=== PATIENT | female | born 1980 | race Hispanic/Latino ===

== ENCOUNTER 2017-11-16 09:48 | Emergency (ER) | payer SELFPAY ==
[2017-11-16 11:39] LABS: Absolute Lymphocytes (CBC) 2.2 K/uL (0.7-4.9); Absolute Monocytes 0.7 K/uL (0.1-1.3); Absolute Neutrophil 5.3 K/uL (1.8-8.0); Basophils % 0.5 % (0-1.3); Eosinophils % 1.1 % (0-4.4); Hematocrit 33.9 % (36.0-45.0); Lymphocytes % 26.7 % (15.3-44.8); MCH 26.9 pg (27.0-35.0); MCV 83.3 fL (80-100); MPV 7.9 fL (7.6-11.3); Monocytes % 8.8 % (3.3-12.3); RBC Red Blood Cell Count 4.07 M/uL (3.86-4.86)
[2017-11-16 11:59] LABS: Bicarbonate 26 mEq/L (21-31); Glucose Level 94 mg/dL (65-120); Lipase 31 U/L (22-51); Potassium 3.8 mEq/L (3.6-5.0); Sodium Level 137 mEq/L (135-145)
[2017-11-16 12:05] LABS: ALT/SGPT 44 IU/L (10-60); AST/SGOT 45 IU/L (10-42); Albumin 3.8 g/dL (3.2-5.5); Alkaline Phosphatase 61 IU/L (42-121); Amylase Level 56 U/L (28-100); BUN Blood Urea Nitrogen 11 mg/dL (6-20); Bilirubin Direct < 0.1 mg/dL (0-0.2); Bilirubin Total 0.3 mg/dL (0.3-1.2)
[2017-11-16 12:12] LABS: Urine Blood 1+ (NEG); Urine Glucose NEGATIVE (NEG); Urine Protein NEGATIVE (NEG); Urine Specific Gravity 1.025 (1.005-1.030); Urine pH 5.5 (5.0-7.0)
--- NOTE | 2017-11-16 12:31 | RAD REPORT ---
EXAM DESCRIPTION: CT - Stone Protocol - 11/16/2017 12:21 pm CLINICAL HISTORY: Flank pain. COMPARISON: 06/03/2017 TECHNIQUE: Axial images were obtained without oral or IV contrast. Lack of contrast limits solid org an and vascular assessment. The [id number] spans the entirety of the system partially obscuring uppermost abdomen and lung bases. Coronal reformatted images were obtained and reviewed. All CT scans are performed using dose optimization technique as appropriate and may include automated exposure control or mA/KV adjustment according to patient size. FINDINGS: The lower lung villanueva are clear. Cholecystectomy clips. Imaged portions of the liver and spleen show no suspicious findings on non-contrast imaging. The panc reas and adrenal glands are normal. No pathologic lymphadenopathy in the abdomen or pelvis. No urinary tract stones or obstructive uropathy. No bowel obstruction, free air, free fluid or abscess. Normal appendix noted.Small fat containing umb ilical hernia. No significant bony abnormality. Prominent cystic lesion is present in the lower uterine segment/ cer vix measuring 25 mm. IMPRESSION: No urinary tract stones or obstructive uropathy. Normal appendix. Cystic lesion in the inferior left pelvis is probably probably represents nabothian cyst and appears similar to the comparative study.
[2017-11-16 12:35] LABS: Urine Bacteria <20 /HPF (<20); Urine RBC <5 /HPF (NONE SEEN)
[2017-11-16 12:36] LABS: Urine Culture Reflex Order NOT NEEDED
--- NOTE | 2017-11-16 13:23 | RAD REPORT ---
EXAM DESCRIPTION: US - Transvaginal Study Probe - 11/16/2017 1:07 pm CLINICAL HISTORY: Pelvic pain. COMPARISON: CT 11/16/2017 FINDINGS: The uterus is normal in size, shape and echotexture. 2.1 x 1.9 cm fibroid is present in th e fundal region. 2.4 x 2.8 cm fibroid is present along the left aspect of the uterus. The uterus dea ures 8.8 x 5.3 x 4.3 cm. A 3 cm nabothian cyst is present in the cervix. The endometrial stripe measures 5 mm. Neither ovary could be well seen transvaginally or transabdominally. No pelvic ascites. IMPRESSION: Mildly leiomyomatous uterus. 3 cm nabothian cyst.
--- NOTE | 2017-11-16 13:46 | ER ---
Nurse's Notes [facility] Name: Celina Atkins Age: 37 yrs Sex: Female : 1980 Arrival Date: 11/16/2017 Time: 09:52 Bed 25 Private MD: Diagnosis: Lower abdominal pain, unspecified-Left Presentation: 11/16 10:00 Presenting complaint: Patient states: abdominal pain in L lower quadrant started ch yesterday mid day. I have a hx of ovarian cysts but this doesn't feel like that. Nausea but no vomiting or diarrhea. worse with movement. Transition of care: patient was not received from another setting of care. Onset of symptoms. Initial Sepsis Screen: Does the patient meet any 2 criteria? No. Patient's initial sepsis screen is negative. Does the patient have a suspected source of infection? No. Patient's initial sepsis screen is negative. Care prior to arrival: None. 10:00 Method Of Arrival: Ambulatory 10:00 Acuity: HAY 3 ch Triage Assessment: 10:02 General: Appears in no apparent distress. comfortable, Behavior is calm, cooperative, ch appropriate for age. Pain: Complains of pain in left lower quadrant Pain radiates to back and abdomen Pain currently is 8 out of 10 on a pain scale. 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 Historical: - Allergies: 10:02 No Known Allergies; - Home Meds: 10:02 metoprolol tartrate 25 mg Oral tab 1 tab 2 times per day [Active]; Lisinopril Oral ch [Active]; metformin 500 mg Oral tab 1 tab 2 times per day [Active]; pantoprazole 40 mg oral TbEC 1 tab once daily [Active]; aspirin 81 mg Oral chew 1 tab once daily [Active]; control pill [Active]; atorvastatin 40 mg Oral tab 1 tab once daily [Active]; - PMHx: 10:02 Diabetes - NIDDM; Hypertension; Ovarian cysts; Hyperlipidemia; ch - PSHx: 10:02 ; Cholecystectomy; Tubal ligation; ch - Immunization history:: Adult Immunizations up to date, Flu vaccine is not up to date. - Social history:: Smoking status: Patient/guardian denies using tobacco, Patient/guardian denies using alcohol, street drugs. Screenin:45 Abuse screen: Denies threats or abuse. Denies injuries from another. Nutritional aj1 screening: No deficits noted. Tuberculosis screening: No symptoms or risk factors identified. 15:08 Fall Risk None identified. aj1 Assessment: 10:45 General: Appears in no apparent distress. uncomfortable, Behavior is calm, cooperative, aj1 appropriate for age. Pain: Complains of pain in left lower quadrant Pain radiates to back and abdomen Pain currently is 8 out of 10 on a pain scale. Quality of pain is described as throbbing, Pain began 1 day ago. Is intermittent, Alleviated by nothing. Aggravated by movement. Neuro: Level of Consciousness is awake, alert, obeys commands, Oriented to person, place, time, situation, Speech is normal, Facial symmetry appears normal. Cardiovascular: Patient's skin is warm and dry. Respiratory: Airway is patent Respiratory effort is even, unlabored, Respiratory pattern is regular, symmetrical. GI: Abdomen is non-distended, Bowel sounds present X 4 quads. Abd is soft and non tender X 4 quads. Reports nausea, Patient currently denies diarrhea, vomiting. : No signs and/or symptoms were reported regarding the genitourinary system. EENT: No signs and/or symptoms were reported regarding the EENT system. Derm: No signs and/or symptoms reported regarding the dermatologic system. Skin is pink, warm \T\ dry. normal. Musculoskeletal: No signs and/or symptoms reported regarding the musculoskeletal system. Circulation, motion, and sensation intact. 12:08 Reassessment: Patient appears in no apparent distress at this time. No changes from aj1 previously documented assessment. Patient and/or family updated on plan of care and expected duration. Pain level reassessed. Patient is alert, oriented x 3, equal unlabored respirations, skin warm/dry/pink. 13:00 Reassessment: Patient appears in no apparent distress at this time. No changes from aj1 previously documented assessment. Patient and/or family updated on plan of care and expected duration. Pain level reassessed. Patient is alert, oriented x 3, equal unlabored respirations, skin warm/dry/pink. 14:05 Reassessment: Patient appears in no apparent distress at this time. No changes from aj1 previously documented assessment. Patient and/or family updated on plan of care and expected duration. Pain level reassessed. Patient is alert, oriented x 3, equal unlabored respirations, skin warm/dry/pink. 15:07 Reassessment: Patient appears in no apparent distress at this time. No changes from aj1 previously documented assessment. Patient and/or family updated on plan of care and expected duration. Pain level reassessed. Patient is alert, oriented x 3, equal unlabored respirations, skin warm/dry/pink. Vital Signs: 10:02 BP 133 / 96; Pulse 84; Resp 16; Temp 98.5; Pulse Ox 99% on R/A; Weight 86.18 kg; Height 4 ft. 10 in. (147.32 cm); Pain 8/10; 12:08 BP 114 / 76; Pulse 70; Resp 18; Pulse Ox 99% on R/A; aj1 13:00 BP 122 / 75; Pulse 77; Resp 18; Pulse Ox 99% on R/A; aj1 14:00 BP 126 / 76; Pulse 78; Resp 18; Pulse Ox 97% on R/A; aj1 15:07 BP 118 / 75; Pulse 82; Resp 18; Pulse Ox 99% ; aj1 10:02 Body Mass Index 39.71 (86.18 kg, 147.32 cm) ED Course: 09:52 Patient arrived in ED. sb2 10:01 Triage completed. ch 10:02 Arm band placed on left wrist. Patient placed in an exam room. ch 10:25 Tristian Mcguire PA is PHCP. cp 10:25 Sandrine Espitia MD is Attending Physician. cp 10:45 Patient has correct armband on for positive identification. Bed in low position. Call aj1 light in reach. Side rails up X 1. 10:45 No provider procedures requiring assistance completed. Initial lab(s) drawn, by wa, aj1 sent to lab. Inserted saline lock: 18 gauge in left antecubital area, using aseptic technique. Blood collected. 10:49 Nalini Dickerson, RN is Primary Nurse. aj1 12:17 CT completed. Patient tolerated procedure well. Patient moved to CT via wheelchair. sj Patient moved back from CT. 12:21 CT Stone Protocol In Process Unspecified. EDMS 13:04 US Transvaginal Study (Probe) In Process Unspecified. EDMS 13:45 Melisa Sunshine MD is Referral Physician. cp 15:07 IV discontinued, intact, bleeding controlled, No redness/swelling at site. Pressure aj1 dressing applied. Administered Medications: No medications were administered Outcome: 13:46 Discharge ordered by . aníbal 15:07 Discharged to home ambulatory. aj1 15:07 Condition: good 15:07 Discharge instructions given to patient, Instructed on discharge instructions, follow up and referral plans. medication usage, Demonstrated understanding of instructions, follow-up care, medications, Prescriptions given X 2. 15:08 Patient left the ED. aj1 Signatures: Dispatcher [employer] EDMS Caitlin Teague RN RN Nalini Carrion RN RN aj1 Nisreen Alex Corey, JESSICA PA Kortney Gaines sb2
--- NOTE | 2017-11-16 13:46 | EDPHYS ---
Physician Documentation [facility] Name: Celina Atkins Age: 37 yrs Sex: Female : 1980 Arrival Date: 11/16/2017 Time: 09:52 Bed 25 Private MD: ED Physician Sandrine Espitia HPI: 11/16 10:40 This 37 yrs old Female presents to ER via Ambulatory with complaints of cp Abdominal Pain. 10:40 The patient presents with abdominal pain in the lower abdomen. 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 ch Historical: - Allergies: 10:02 No Known Allergies; ch - Home Meds: 10:02 metoprolol tartrate 25 mg Oral tab 1 tab 2 times per day [Active]; Lisinopril Oral ch [Active]; metformin 500 mg Oral tab 1 tab 2 times per day [Active]; pantoprazole 40 mg oral TbEC 1 tab once daily [Active]; aspirin 81 mg Oral chew 1 tab once daily [Active]; control pill [Active]; atorvastatin 40 mg Oral tab 1 tab once daily [Active]; - PMHx: 10:02 Diabetes - NIDDM; Hypertension; Ovarian cysts; Hyperlipidemia; ch - PSHx: 10:02 ; Cholecystectomy; Tubal ligation; ch - Immunization history:: Adult Immunizations up to date, Flu vaccine is not up to date. - Social history:: Smoking status: Patient/guardian denies using tobacco, Patient/guardian denies using alcohol, street drugs. ROS: 10:45 Constitutional: Negative for body aches, chills, fever, poor PO intake. cp 10:45 Eyes: Negative for injury, pain, redness, and discharge. cp Exam: 10:52 Head/Face: Normocephalic, atraumatic. Eyes: Pupils equal round and reactive to light, cp extra-ocular motions intact. Lids and lashes normal. Conjunctiva and sclera are non-icteric and not injected. Cornea within normal limits. Periorbital areas with no swelling, redness, or edema. ENT: Nares patent. No nasal discharge, no septal abnormalities noted. Tympanic membranes are normal and external auditory canals are clear. Oropharynx with no redness, swelling, or masses, exudates, or evidence of obstruction, uvula midline. Mucous membranes moist. Chest/axilla: Normal chest wall appearance and motion. Nontender with no deformity. No lesions are appreciated. Cardiovascular: Regular rate and rhythm with a normal S1 and S2. No gallops, murmurs, or rubs. Normal PMI, no JVD. No pulse deficits. Respiratory: Lungs have equal breath sounds bilaterally, clear to auscultation and percussion. No rales, rhonchi or wheezes noted. No increased work of breathing, no retractions or nasal flaring. 10:52 Constitutional: The patient appears in no acute distress, alert, awake, non-toxic, well developed, well nourished. 10:52 Abdomen/GI: Inspection: abdomen appears normal, Bowel sounds: active, all quadrants, Palpation: soft, in all quadrants, moderate abdominal tenderness, in the left adnexal area, rebound tenderness, is not appreciated, involuntary guarding, is not appreciated. 10:52 Back: pain, is absent, ROM is normal. 10:52 Skin: cellulitis, is not appreciated, no rash present. Vital Signs: 10:02 BP 133 / 96; Pulse 84; Resp 16; Temp 98.5; Pulse Ox 99% on R/A; Weight 86.18 kg; Height ch 4 ft. 10 in. (147.32 cm); Pain 8/10; 12:08 BP 114 / 76; Pulse 70; Resp 18; Pulse Ox 99% on R/A; aj1 13:00 BP 122 / 75; Pulse 77; Resp 18; Pulse Ox 99% on R/A; aj1 14:00 BP 126 / 76; Pulse 78; Resp 18; Pulse Ox 97% on R/A; aj1 15:07 BP 118 / 75; Pulse 82; Resp 18; Pulse Ox 99% ; aj1 10:02 Body Mass Index 39.71 (86.18 kg, 147.32 cm) MDM: 10:25 Patient medically screened. 13:30 Data reviewed: vital signs, nurses notes, lab test result(s), radiologic studies, CT cp scan, plain films. 11/16 10:35 Order name: Amylase, Serum; Complete Time: 12:32 cp 11/16 10:35 Order name: Basic Metabolic Panel; Complete Time: 12:32 cp 11/16 10:35 Order name: CBC with Diff; Complete Time: 12:01 cp 11/16 12:54 Interpretation: Normal except: HGB 10.9; HCT 33.9; MCV 83.3; MCH 26.9; RDW 15.5. cp 05 10:35 Order name: Creatinine for Radiology; Complete Time: 12:01 cp 11/16 10:35 Order name: Hepatic Function; Complete Time: 12:32 cp 11/16 12:32 Interpretation: Normal except: SGOT 45. cp 05 10:35 Order name: Lipase; Complete Time: 12:32 cp 11/16 10:35 Order name: Urine Test (obtain specimen); Complete Time: 11:31 cp 11/16 10:35 Order name: Urine Microscopic Only; Complete Time: 12:54 cp 11/16 12:54 Interpretation: Normal except: SQEPI 10-20. cp 11/16 10:35 Order name: IV Saline Lock; Complete Time: 11:31 cp 11/16 10:35 Order name: Labs collected and sent; Complete Time: 11:31 cp 11/16 11:54 Order name: Urine Dipstick--Ancillary (enter results); Complete Time: 12:32 ag 11/16 12:32 Interpretation: Normal except: UBLD 1+. cp 11/16 11:54 Order name: Urine --Ancillary (enter results); Complete Time: 12:32 ag 11/16 12:02 Order name: CT Stone Protocol; Complete Time: 12:32 cp 11/16 12:34 Order name: US Transvaginal Study (Probe); Complete Time: 13:26 cp 11/16 10:35 Order name: Urine Dipstick-Ancillary (obtain specimen); Complete Time: 11:31 cp Administered Medications: No medications were administered Disposition: 11/16/17 13:46 Discharged to Home. Impression: Lower abdominal pain, unspecified - Left. - Condition is Stable. - Discharge Instructions: Abdominal Pain, Women. - Prescriptions for Ibuprofen 800 mg Oral Tablet - take 1 tablet by ORAL route every 8 hours As needed take with food; 30 tablet. Tramadol 50 mg Oral Tablet - take 1 tablet by ORAL route every 8 hours as needed; 15 tablet. - Medication Reconciliation Form, Thank You Letter, Antibiotic Education, Prescription Opioid Use form. - Follow up: Melisa Sunshine MD; When: 2 - 3 days; Reason: Recheck today's complaints. - Problem is new. - Symptoms have improved. Addendum: 11/21/2017 19:53 Co-signature as Attending Physician, Sandrine Espitia MD. m a2 Signatures: Dispatcher [employer] Caitlin Vieira, RN RN Nalini Carrion RN RN aj1 Tristian Mcguire PA PA cp Sandrine Espitia MD MD ma2 Corrections: (The following items were deleted from the chart) 11/16 15:08 13:46 11/16/2017 13:46 Discharged to Home. Impression: Lower abdominal pain, aj1 unspecified - Left. Condition is Stable. Forms are Medication Reconciliation Form, Thank You Letter, Antibiotic Education, Prescription Opioid Use. Follow up: Mini Rekhi; When: 2 - 3 days; Reason: Recheck today's complaints. Problem is new. Symptoms have improved. cp
[2017-11-16 15:31] VITALS: TEMP 98.5
[2017-11-16 15:40] VITALS: BP 118/75; O2SAT 99
== END 2017-11-16 15:08 | disposition home or self-care (01) ==
LOC: ER 09:48
DX: R10.30 Lower abdominal pain, unspecified (principal); I10 Essential (primary) hypertension; E11.9 Type 2 diabetes mellitus without complications; E78.5 Hyperlipidemia, unspecified; Z79.82 Long term (current) use of aspirin
CPT/HCPCS: 36415; 74176; 76377; 76830; 80048; 80076; 81003; 81015; 81025; 82150; 83690; 85025; 99284

== ENCOUNTER 2018-04-13 15:42 | Emergency (ER) | payer SELFPAY ==
[2018-04-13 16:35] LABS: Absolute Lymphocytes (CBC) 2.4 K/uL (0.7-4.9); Absolute Monocytes 0.6 K/uL (0.1-1.3); Absolute Neutrophil 4.7 K/uL (1.8-8.0); Eosinophils % 1.6 % (0-4.4); Hematocrit 38.4 % (36.0-45.0); Lymphocytes % 30.9 % (15.3-44.8); MCV 85.7 fL (80-100); MPV 8.1 fL (7.6-11.3); Monocytes % 7.2 % (3.3-12.3); RBC Red Blood Cell Count 4.48 M/uL (3.86-4.86)
[2018-04-13 16:45] LABS: Protime INR 0.9
--- NOTE | 2018-04-13 16:50 | RAD REPORT ---
EXAM DESCRIPTION: RAD - Chest Single View - 04/13/2018 4:42 pm CLINICAL HISTORY: CHEST PAIN Chest pain. COMPARISON: Chest Single View dated 09/21/2017; Chest Single View dated 08/27/2016 FINDINGS: Portable technique limits examination quality. The lungs are grossly clear. The heart is normal in size. No displaced fractures. IMPRESSION: No acute intrathoracic process suspected.
[2018-04-13 17:01] LABS: ALT/SGPT 66 U/L (12-78); AST/SGOT 56 U/L (15-37); Albumin 3.7 g/dL (3.4-5.0); Alkaline Phosphatase 112 U/L (45-117); BUN Blood Urea Nitrogen 9 mg/dL (7-18); Bicarbonate 24 mmol/L (21-32); Bilirubin Direct < 0.1 mg/dL (0-0.2); Bilirubin Total 0.2 mg/dL (0.2-1.0); Glucose Level 131 mg/dL (74-106); Magnesium 2.2 mg/dL (1.8-2.4); NT PRO-BNP 36 pg/mL (<125); Potassium 3.7 mmol/L (3.5-5.1); Protein, Total 7.7 g/dL (6.4-8.2); Sodium Level 140 mmol/L (136-145); Troponin (Emerg Dept Use Only) 0.03 ng/mL (0.0-0.045)
[2018-04-13 17:38] LABS: Urine Blood 2+ (NEG); Urine Glucose NEGATIVE (NEG); Urine Protein 1+ (NEG)
[2018-04-13 17:43] LABS: Urine Amorphous Sediment 2+ /HPF (NONE SEEN); Urine Bacteria <20 /HPF (<20); Urine Culture Reflex Order NOT NEEDED; Urine RBC <5 /HPF (NONE SEEN)
--- NOTE | 2018-04-14 01:14 | ER ---
Nurse's Notes [facility] Name: Celina Atkins Age: 37 yrs Sex: Female : 1980 Arrival Date: 04/13/2018 Time: 15:44 Bed 26 Private MD: None, None Diagnosis: Chest pain, unspecified Presentation: 04/13 15:47 Presenting complaint: Patient states: i been having pressure or this pain in my chest tw2 that started maybe Wednesday, it comes and goes, then my right hand is tingly like it fell asleep and i have been feel short of breath. Transition of care: patient was not received from another setting of care. Onset of symptoms was April 13, 2018. Risk Assessment: Do you want to hurt yourself or someone else? Patient reports no desire to harm self or others. Initial Sepsis Screen: Does the patient meet any 2 criteria? No. Patient's initial sepsis screen is negative. Does the patient have a suspected source of infection? No. Patient's initial sepsis screen is negative. Care prior to arrival: None. 15:47 Method Of Arrival: Ambulatory tw2 15:47 Acuity: HAY 3 tw2 15:59 Note EKG in Triage, EKG shown to ROBEL Negro and notified of BP. tw2 Triage Assessment: 16:24 General: Appears in no apparent distress. uncomfortable, well groomed, well developed, kr2 Behavior is calm, cooperative, appropriate for age. Pain: Complains of pain in anterior aspect of right upper chest, anterior aspect of left upper chest and mid-sternal area Pain does not radiate. Pain currently is 8 out of 10 on a pain scale. Quality of pain is described as heavy, pressure. EENT: Oral mucosa is moist. Neuro: Level of Consciousness is awake, alert, Oriented to person, place, time, situation, Appropriate for age. Cardiovascular: Capillary refill < 3 seconds in bilateral fingers Patient's skin is warm and dry. Rhythm is sinus rhythm. Respiratory: Airway is patent Respiratory effort is even, unlabored, Respiratory pattern is regular, symmetrical. GI: Abdomen is flat, non-distended, Bowel sounds present X 4 quads. Patient currently denies nausea, vomiting. : Denies burning with urination. Derm: Skin is intact, is healthy with good turgor, Skin is pink, warm \T\ dry. normal. Musculoskeletal: Circulation, motion, and sensation intact. 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 periods, i havent had one in 6 months tw2 Historical: - Allergies: 15:49 No Known Allergies; tw2 - Home Meds: 15:49 pantoprazole 40 mg Oral TbEC 1 tab once daily [Active]; metoprolol tartrate 25 mg Oral tw2 tab 1 tab 2 times per day [Active]; metformin 500 mg Oral tab 1 tab 2 times per day [Active]; aspirin 325 mg oral TbEC [Active]; atorvastatin 40 mg Oral tab 1 tab once daily [Active]; control pill [Active]; lisinopril Oral [Active]; - PMHx: 15:49 Diabetes - NIDDM; Hyperlipidemia; Hypertension; Ovarian cysts; tw2 - PSHx: 15:49 ; Cholecystectomy; Tubal ligation; tw2 - Immunization history:: Adult Immunizations up to date. - Social history:: Smoking status: Patient/guardian denies using tobacco. - Ebola Screening: : Patient denies travel to an Ebola-affected area in the 21 days before illness onset. Screenin:24 Abuse screen: Denies threats or abuse. Denies injuries from another. Nutritional kr2 screening: No deficits noted. Tuberculosis screening: No symptoms or risk factors identified. Fall Risk None identified. Assessment: 16:26 Pain: Complains of pain in See triage assessment Pain began yesterday. kr2 17:46 Reassessment: Patient appears in no apparent distress at this time. Patient and/or kr2 family updated on plan of care and expected duration. Pain level reassessed. Patient is alert, oriented x 3, equal unlabored respirations, skin warm/dry/pink. Patient states she still has pressure in her chest but states she does not want to take anything for pain at this time. 19:22 Reassessment: Patient appears in no apparent distress at this time. Patient and/or kr2 family updated on plan of care and expected duration. Pain level reassessed. Patient is alert, oriented x 3, equal unlabored respirations, skin warm/dry/pink. 20:30 Reassessment: Patient appears in no apparent distress at this time. Patient and/or kr2 family updated on plan of care and expected duration. Pain level reassessed. Patient is alert, oriented x 3, equal unlabored respirations, skin warm/dry/pink. 21:30 Reassessment: Patient appears in no apparent distress at this time. Patient and/or kr2 family updated on plan of care and expected duration. Pain level reassessed. Patient is alert, oriented x 3, equal unlabored respirations, skin warm/dry/pink. Patient states feeling better. 22:24 Reassessment: Patient appears in no apparent distress at this time. Patient and/or kr2 family updated on plan of care and expected duration. Pain level reassessed. Patient is alert, oriented x 3, equal unlabored respirations, skin warm/dry/pink. Patient states feeling better. 04/14 00:02 Reassessment: Patient appears in no apparent distress at this time. Patient and/or kr2 family updated on plan of care and expected duration. Pain level reassessed. Patient is alert, oriented x 3, equal unlabored respirations, skin warm/dry/pink. Patient denies pain at this time. Patient states feeling better. 01:05 Reassessment: Patient appears in no apparent distress at this time. Patient and/or wh family updated on plan of care and expected duration. Pain level reassessed. Patient is alert, oriented x 3, equal unlabored respirations, skin warm/dry/pink. Patient denies pain at this time. Vital Signs: 04/13 15:50 BP 171 / 107; Pulse 84; Resp 16; Temp 97.5(TE); Pulse Ox 98% on R/A; Pain 8/10; tw2 16:23 BP 136 / 78; Pulse 80; Resp 22; Pulse Ox 95% on R/A; kr2 17:45 BP 141 / 88; Pulse 80; Resp 21; Pulse Ox 98% ; kr2 19:23 BP 130 / 81; Pulse 79; Resp 17; Pulse Ox 97% on R/A; kr2 20:30 BP 134 / 81; Pulse 71; Resp 21; Pulse Ox 96% on R/A; kr2 21:30 BP 125 / 75; Pulse 79; Resp 16; Pulse Ox 97% on R/A; kr2 22:24 BP 121 / 66; Pulse 81; Resp 15; Pulse Ox 98% on R/A; kr2 04/14 00:02 BP 139 / 78; Pulse 78; Resp 17; Pulse Ox 98% on R/A; kr2 01:05 BP 140 / 82; Pulse 75; Resp 18; Pulse Ox 95% on R/A; ED Course: 04/13 15:44 Patient arrived in ED. sb2 15:44 None, None is Private Physician. sb2 15:49 Triage completed. tw2 15:50 Arm band placed on. tw2 15:57 Sruthi Donnelly FNP-C is [facility]. snw 15:57 Nick Urias MD is Attending Physician. snw 16:04 Jennifer Coronel, SHERIN is Primary Nurse. kr2 16:14 EKG done, by vocational technical education director. reviewed by Sruthi DALLAS. sm3 16:15 Patient has correct armband on for positive identification. Placed in gown. Bed in low kr2 position. Call light in reach. Side rails up X 1. older adult social work specialist on. Pulse ox on. NIBP on. Door closed. Warm blanket given. Head of bed elevated. 16:15 Inserted saline lock: 20 gauge in right antecubital area, using aseptic technique. kr2 Blood collected. Patient maintains SpO2 saturation greater than 95% on room air. 16:15 First set of blood cultures drawn by me. kr2 16:30 Second set of blood cultures drawn by me. kr2 16:39 XRAY Chest (1 view) In Process Unspecified. EDMS 16:45 Urine collected: clean catch specimen, clear, wale colored, Amount Voided: 60mL. jp3 16:54 Urine Microscopic Only Sent. jp3 21:06 EKG done, by ED staff, reviewed by Sruthi DALLAS. jp3 04/14 00:08 Repeat lab(s) drawn. by me, sent to lab. kr2 01:43 No provider procedures requiring assistance completed. IV discontinued, intact, bleeding controlled, No redness/swelling at site. Administered Medications: 04/13 16:22 Not Given (Blood pressure rechecked, 136/78, pulse 80, provider notified, order DC'd): kr2 Metoprolol 5 mg IVP every 5 minutes; Hold for SBP < 100 or HR < 60. x3 Outcome: 04/14 01:14 Discharge ordered by . snw 01:43 Discharged to home ambulatory, with family. 01:43 Condition: good 01:43 Discharge instructions given to patient, family, Instructed on discharge instructions, follow up and referral plans. medication usage, POC Hypertension Demonstrated understanding of instructions, follow-up care, medications, POC Prescriptions given X 1. 01:47 Patient left the ED. wh Signatures: Dispatcher [employer] EDMS Sruthi Donnelly, MEDICAL RECORDS SECRETARY-C MEDICAL RECORDS SECRETARY-Csnw Gilda Ch RN RN tw2 Raghu Bourgeois Jennifer Coronel RN RN kr2 Kortney Cross 2 Dagmar Leo 3 Dawood Teixeira 3
--- NOTE | 2018-04-14 01:15 | EDPHYS ---
Physician Documentation [facility] Name: Celina Atkins Age: 37 yrs Sex: Female : 1980 Arrival Date: 04/13/2018 Time: 15:44 Bed 26 Private MD: None, None ED Physician Nick Urias HPI: 04/13 16:16 This 37 yrs old Female presents to ER via Ambulatory with complaints of Chest snw Pain, Shortness Of Breath. 16:16 Onset: The symptoms/episode began/occurred gradually, 1 week(s) ago. Associated signs snw and symptoms: Pertinent positives: chest pain, cough, shortness of breath. Modifying factors: The patient symptoms are alleviated by nothing. It is unknown whether or not the patient has had similar symptoms in the past. sees PCP in clinic on [address], states no new medications or doseage changes. 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 N/A - irregular periods, i havent had one in 6 months tw2 Historical: - Allergies: 15:49 No Known Allergies; tw2 - Home Meds: 15:49 pantoprazole 40 mg Oral TbEC 1 tab once daily [Active]; metoprolol tartrate 25 mg Oral tw2 tab 1 tab 2 times per day [Active]; metformin 500 mg Oral tab 1 tab 2 times per day [Active]; aspirin 325 mg oral TbEC [Active]; atorvastatin 40 mg Oral tab 1 tab once daily [Active]; control pill [Active]; lisinopril Oral [Active]; - PMHx: 15:49 Diabetes - NIDDM; Hyperlipidemia; Hypertension; Ovarian cysts; tw2 - PSHx: 15:49 ; Cholecystectomy; Tubal ligation; tw2 - Immunization history:: Adult Immunizations up to date. - Social history:: Smoking status: Patient/guardian denies using tobacco. - Ebola Screening: : Patient denies travel to an Ebola-affected area in the 21 days before illness onset. ROS: 16:14 Constitutional: Negative for fever, chills, and weight loss, Eyes: Negative for injury, snw pain, redness, and discharge, ENT: Negative for injury, pain, and discharge, Neck: Negative for injury, pain, and swelling, Cardiovascular: Negative for palpitations and edema, + chest pain/tightness Abdomen/GI: Negative for abdominal pain, nausea, vomiting, diarrhea, and constipation, Back: Negative for injury and pain, : Negative for injury, bleeding, discharge, and swelling, MS/Extremity: Negative for injury and deformity, Skin: Negative for injury, rash, and discoloration, Neuro: Negative for headache, weakness, numbness, tingling, and seizure. 16:14 Respiratory: Positive for cough, shortness of breath. Exam: 16:13 Constitutional: This is a well developed, well nourished patient who is awake, alert, snw and in no acute distress. Head/Face: Normocephalic, atraumatic. Eyes: Pupils equal round and reactive to light, extra-ocular motions intact. Lids and lashes normal. Conjunctiva and sclera are non-icteric and not injected. Cornea within normal limits. Periorbital areas with no swelling, redness, or edema. ENT: Nares patent. No nasal discharge, no septal abnormalities noted. Tympanic membranes are normal and external auditory canals are clear. Oropharynx with no redness, swelling, or masses, exudates, or evidence of obstruction, uvula midline. Mucous membranes moist. Neck: Trachea midline, no thyromegaly or masses palpated, and no cervical lymphadenopathy. Supple, full range of motion without nuchal rigidity, or vertebral point tenderness. No Meningismus. Chest/axilla: Normal chest wall appearance and motion. Nontender with no deformity. No lesions are appreciated. Cardiovascular: Regular rate and rhythm with a normal S1 and S2. No gallops, murmurs, or rubs. Normal PMI, no JVD. No pulse deficits. Abdomen/GI: Soft, non-tender, with normal bowel sounds. No distension or tympany. No guarding or rebound. No evidence of tenderness throughout. Back: No spinal tenderness. No costovertebral tenderness. Full range of motion. Skin: Warm, dry with normal turgor. Normal color with no rashes, no lesions, and no evidence of cellulitis. MS/ Extremity: Pulses equal, no cyanosis. Neurovascular intact. Full, normal range of motion. Neuro: Awake and alert, GCS 15, oriented to person, place, time, and situation. Cranial nerves II-XII grossly intact. Motor strength 5/5 in all extremities. Sensory grossly intact. Cerebellar exam normal. Normal gait. Psych: Awake, alert, with orientation to person, place and time. Behavior, mood, and affect are within normal limits. 16:13 Respiratory: the patient does not display signs of respiratory distress, Respirations: normal, Breath sounds: are clear throughout, mild cough. Vital Signs: 15:50 BP 171 / 107; Pulse 84; Resp 16; Temp 97.5(TE); Pulse Ox 98% on R/A; Pain 8/10; tw2 16:23 BP 136 / 78; Pulse 80; Resp 22; Pulse Ox 95% on R/A; kr2 17:45 BP 141 / 88; Pulse 80; Resp 21; Pulse Ox 98% ; kr2 19:23 BP 130 / 81; Pulse 79; Resp 17; Pulse Ox 97% on R/A; kr2 20:30 BP 134 / 81; Pulse 71; Resp 21; Pulse Ox 96% on R/A; kr2 21:30 BP 125 / 75; Pulse 79; Resp 16; Pulse Ox 97% on R/A; kr2 22:24 BP 121 / 66; Pulse 81; Resp 15; Pulse Ox 98% on R/A; kr2 04/14 00:02 BP 139 / 78; Pulse 78; Resp 17; Pulse Ox 98% on R/A; kr2 01:05 BP 140 / 82; Pulse 75; Resp 18; Pulse Ox 95% on R/A; wh MDM: 04/13 15:57 Patient medically screened. snw 04/14 01:15 Data reviewed: vital signs, nurses notes. Data interpreted: Pulse oximetry: on room air snw is 95 %. Interpretation: acceptable. Counseling: I had a detailed discussion with the patient and/or guardian regarding: the historical points, exam findings, and any diagnostic results supporting the discharge/admit diagnosis, the presence of at least one elevated blood pressure reading (>120/80) during this emergency department visit, lab results, radiology results, the need for outpatient follow up, to return to the emergency department if symptoms worsen or persist or if there are any questions or concerns that arise at home. Special discussion: Based on the patient's history, exam, and Dx evaluation, there is no indication for emergent intervention or inpatient Tx. It is understood by the patient/guardian that if the Sx's persist or worsen they need to return immediately for re-evaluation. I have referred the patient to see his PCP for further evaluation of high blood pressure. Based on the history and exam findings, there is no indication for further emergent testing or inpatient evaluation. 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 I discussed with the patient/guardian the need to see the primary care provider for further evaluation of the symptoms. 04/13 16:00 Order name: Basic Metabolic Panel; Complete Time: 17:03 [facility] 04/13 16:00 Order name: CBC with Diff; Complete Time: 16:52 [facility] 04/13 16:00 Order name: LFT's; Complete Time: 17:03 [facility] 04/13 16:00 Order name: Magnesium; Complete Time: 17:03 [facility] 04/13 16:00 Order name: NT PRO-BNP; Complete Time: 17:03 [facility] 04/13 16:00 Order name: PT-INR; Complete Time: 16:52 [facility] 04/13 16:00 Order name: Troponin (emerg Dept Use Only); Complete Time: 17:03 [facility] 04/13 16:00 Order name: XRAY Chest (1 view); Complete Time: 16:52 [facility] 04/13 16:00 Order name: Urine Microscopic Only; Complete Time: 17:51 [facility] 04/13 16:00 Order name: Blood Culture Adult (2) [facility] 04/13 17:34 Order name: Urine Dipstick--Ancillary (enter results); Complete Time: 17:40 bd 04/13 17:34 Order name: Urine --Ancillary (enter results); Complete Time: 17:40 bd 04/13 19:22 Order name: Troponin (emerg Dept Use Only); Complete Time: 21:00 [facility] 04/13 23:43 Order name: Troponin (emerg Dept Use Only): at 0000; Complete Time: 01:09 [facility] 04/13 16:00 Order name: EKG; Complete Time: 16:01 [facility] 04/13 16:00 Order name: Cardiac monitoring; Complete Time: 16:21 [facility] 04/13 16:00 Order name: EKG - Nurse/Tech; Complete Time: 16:21 [facility] 04/13 16:00 Order name: IV Saline Lock; Complete Time: 16:22 [facility] 04/13 16:00 Order name: Labs collected and sent; Complete Time: 16:22 [facility] 04/13 16:00 Order name: O2 Per Protocol; Complete Time: 16:22 snw 04/13 16:00 Order name: O2 Sat Monitoring; Complete Time: 16:22 snw 04/13 16:00 Order name: Urine Test (obtain specimen); Complete Time: 16:54 snw 04/13 16:00 Order name: Urine Dipstick-Ancillary (obtain specimen); Complete Time: 16:54 snw 04/13 19:22 Order name: EKG; Complete Time: 19:23 snw Administered Medications: 04/13 16:22 Not Given (Blood pressure rechecked, 136/78, pulse 80, provider notified, order DC'd): kr2 Metoprolol 5 mg IVP every 5 minutes; Hold for SBP < 100 or HR < 60. x3 Disposition: 04/14 07:10 Co-signature as Attending Physician, Nick Urias MD. rn Disposition: 04/14/18 01:14 Discharged to Home. Impression: Chest pain, unspecified. - Condition is Stable. - Discharge Instructions: Electrocardiography, Hypertension, Aspirin and Your Heart. - Prescriptions for Protonix 40 mg Oral Tablet - take 1 tablet by ORAL route once daily; 30 tablet. - Work release form, Medication Reconciliation Form, Thank You Letter, Antibiotic Education, Prescription Opioid Use form. - Follow up: Private Physician; When: 1 - 2 days; Reason: Recheck today's complaints, Continuance of care, Re-evaluation by your physician. Follow up: Emergency Department; When: As needed; Reason: Worsening of condition. Signatures: Dispatcher [employer] EDLA Sruthi Donnelly, CERTIFIED ADAPTED PHYSICAL EDUCATOR-C CERTIFIED ADAPTED PHYSICAL EDUCATOR-Csnw Nick Urias MD MD rn Wise, Tara, RN RN tw2 Raghu Bourgeois, Jennifer DUFF kr2 Corrections: (The following items were deleted from the chart) 01:47 01:14 04/14/2018 01:14 Discharged to Home. Impression: Chest pain, unspecified. Condition is Stable. Forms are Medication Reconciliation Form, Thank You Letter, Antibiotic Education, Prescription Opioid Use. Follow up: Private Physician; When: 1 - 2 days; Reason: Recheck today's complaints, Continuance of care, Re-evaluation by your physician. Follow up: Emergency Department; When: As needed; Reason: Worsening of condition. snw
[2018-04-14 02:43] VITALS: TEMP 97.5
[2018-04-14 02:51] VITALS: BP 140/82; O2SAT 95
--- NOTE | 2018-04-14 07:56 | EKG ---
Test Date: 2018-04-13 Test Time: 21:06:45 [employer] Attorney: HAILEY MEASUREMENT RESULTS: Intervals: Rate: 75 UT: 160 QRSD: 80 QT: 422 QTc: 471 [place]: P: 36 UT: 160 QRS: 7 T: 53 INTERPRETIVE STATEMENTS: Normal sinus rhythm Moderate voltage criteria for LVH, may be normal variant Nonspecific T wave abnormality Prolonged QT Abnormal ECG Compared to ECG 04/13/2018 15:52:30 T-wave abnormality now present Prolonged QT interval now present Electronically Signed On 04-14-18 07:56:11 CDT by Cristobal Britt
--- NOTE | 2018-04-14 08:03 | EKG ---
Test Date: 2018-04-13 Test Time: 15:52:30 Weight Analyst: DORIS MEASUREMENT RESULTS: Intervals: Rate: 82 ID: [id number] QRSD: 70 QT: 376 QTc: 439 [place]: P: 29 ID: [id number] QRS: 3 T: 48 INTERPRETIVE STATEMENTS: Normal sinus rhythm Voltage criteria for left ventricular hypertrophy Abnormal ECG Compared to ECG 09/21/2017 08:41:49 No significant changes Electronically Signed On 04-14-18 08:02:31 CDT by Cristobal Britt
== END 2018-04-14 01:47 | disposition home or self-care (01) ==
LOC: ER 15:42
DX: R07.9 Chest pain, unspecified (principal); I10 Essential (primary) hypertension; E11.9 Type 2 diabetes mellitus without complications; E78.5 Hyperlipidemia, unspecified; Z79.82 Long term (current) use of aspirin
CPT/HCPCS: 36415; 71045; 80048; 80076; 81003; 81015; 81025; 83735; 83880; 84484; 85025; 85610; 87040; 93005; 99285

== ENCOUNTER 2018-08-05 08:18 | Emergency (ER) | payer BC, SELFPAY ==
[2018-08-05] MEDS ORDERED: ONDANSETRON 4 MG/2 ML VIAL ONE (08:49)
[2018-08-05] MEDS ORDERED: MAGNE/ALUM HYDROXD 30 ML UCUP ONE (08:49)
[2018-08-05] MEDS ORDERED: LIDOCAINE VISCOUS 2% SOLN 15 ML UDC ONE (08:50)
[2018-08-05] MEDS ORDERED: NA CHLORIDE 0.9% 1,000 ML ONE (08:50)
[2018-08-05 09:19] LABS: Urine Blood 2+ (NEG); Urine Glucose NEGATIVE (NEG); Urine Protein 2+ (NEG); Urine pH 6.5 (5.0-7.0)
[2018-08-05 09:26] LABS: ALT/SGPT 103 U/L (12-78); AST/SGOT 75 U/L (15-37); Albumin 3.9 g/dL (3.4-5.0); Alkaline Phosphatase 117 U/L (45-117); BUN Blood Urea Nitrogen 11 mg/dL (7-18); Bicarbonate 27 mmol/L (21-32); Bilirubin Direct 0.1 mg/dL (0-0.2); Bilirubin Total 0.4 mg/dL (0.2-1.0); Glucose Level 128 mg/dL (74-106); Lipase 124 U/L (73-393); Potassium 3.8 mmol/L (3.5-5.1); Protein, Total 8.1 g/dL (6.4-8.2); Sodium Level 139 mmol/L (136-145)
--- NOTE | 2018-08-05 10:57 | EDPHYS ---
Physician Documentation [facility] Name: Celina Atkins Age: 38 yrs Sex: Female : 1980 Arrival Date: 08/05/2018 Time: 08:22 Bed 19 Private MD: None, None ED Physician Nick Urias HPI: 08/05 08:34 This 38 yrs old Female presents to ER via Ambulatory with complaints of rn Abdominal Pain. 08:34 The patient presents with abdominal pain in the epigastric area, in the left upper rn quadrant. Onset: The symptoms/episode began/occurred 2 week(s) ago. The symptoms do not radiate. Associated signs and symptoms: Pertinent positives: nausea and vomiting, Pertinent negatives: blood in stools, diarrhea, fever, shortness of breath, vaginal discharge, vomiting blood. The symptoms are described as sharp, stabbing. Modifying factors: The symptoms are alleviated by nothing, the symptoms are aggravated by food. Severity of pain: At its worst the pain was moderate in the emergency department the pain has improved. The patient has experienced similar episodes in the past. Reports upper abd pain and LUQ pain, began a few weeks ago, worse over last 24 hours, worse when she eats, no radiation, + nausea and vomiting, no diarrhea. Has had gallbladder removed. . 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 - Irregular menses iw Historical: - Allergies: 08:34 No Known Allergies; iw - Home Meds: 08:34 metoprolol tartrate 25 mg Oral tab 1 tab 2 times per day [Active]; gemfibrozil 600 mg iw Oral tab 1 tab 2 times per day [Active]; - PMHx: 08:34 Ovarian cysts; Hyperlipidemia; Hypertension; iw - PSHx: 08:34 ; Cholecystectomy; Tubal ligation; iw - Ebola Screening: : Patient negative for fever greater than or equal to 101.5 degrees Fahrenheit, and additional compatible Ebola Virus Disease symptoms Patient denies exposure to infectious person Patient denies travel to an Ebola-affected area in the 21 days before illness onset No symptoms or risks identified at this time. - Family history:: not pertinent. - Hospitalizations: : No recent hospitalization is reported. ROS: 08:34 Constitutional: Negative for fever, chills, and weight loss, Eyes: Negative for injury, rn pain, redness, and discharge, Neck: Negative for injury, pain, and swelling, Cardiovascular: Negative for chest pain, palpitations, and edema, Respiratory: Negative for shortness of breath, cough, wheezing, and pleuritic chest pain, Abdomen/GI: + abd pain, nausea/vomiting MS/Extremity: Negative for injury and deformity, Skin: Negative for injury, rash, and discoloration, Neuro: Negative for headache, weakness, numbness, tingling, and seizure. Exam: 08:34 Constitutional: This is a well developed, well nourished patient who is awake, alert, rn and in no acute distress. Head/Face: Normocephalic, atraumatic. Eyes: Pupils equal round and reactive to light, extra-ocular motions intact. Lids and lashes normal. Conjunctiva and sclera are non-icteric and not injected. Cornea within normal limits. Periorbital areas with no swelling, redness, or edema. ENT: dry MM Abdomen/GI: soft, mild epigastric and LUQ tenderness, no rebound, no peritoneal signs Skin: Warm, dry with normal turgor. Normal color with no rashes, no lesions, and no evidence of cellulitis. MS/ Extremity: Pulses equal, no cyanosis. Neurovascular intact. Full, normal range of motion. Equal circumference. Neuro: Awake and alert, GCS 15, oriented to person, place, time, and situation. Cranial nerves II-XII grossly intact. Motor strength 5/5 in all extremities. Sensory grossly intact. Vital Signs: 08:34 BP 151 / 90; Pulse 110; Resp 18 S; Temp 99.2(O); Pulse Ox 97% on R/A; Weight 95.25 kg; iw Height 4 ft. 11 in. (149.86 cm); Pain 9/10; 10:12 BP 156 / 94; Pulse 101; Resp 16; Pulse Ox 98% on R/A; em 11:15 BP 151 / 87; Pulse 98; Resp 18; Pulse Ox 97% on R/A; em 08:34 Body Mass Index 42.41 (95.25 kg, 149.86 cm) iw MDM: 08:30 Patient medically screened. rn 08:48 ED course: states took omeprazole and felt better. rn 10:53 Differential diagnosis: gastritis, gastroesophageal reflux disease, non-specific abd rn pain, pancreatitis, Peptic Ulcer Disease, urinary tract infection. Data reviewed: vital signs, nurses notes, lab test result(s), and as a result, I will discharge patient. Counseling: I had a detailed discussion with the patient and/or guardian regarding: the historical points, exam findings, and any diagnostic results supporting the discharge/admit diagnosis, lab results, the need for outpatient follow up, to return to the emergency department if symptoms worsen or persist or if there are any questions or concerns that arise at home. Response to treatment: the patient's symptoms have markedly improved after treatment, and as a result, I will discharge patient. Special discussion: Based on the patient's Hx, exam, and Dx evaluation, there is no indication for emergent surgery or inpatient Tx. It is understood by the patient/guardian that if the Sx's persist or worsen they need to return immediately for re-evaluation. I discussed with the patient/guardian in detail that at this point there is no indication for admission to the hospital. It is understood, however, that if the symptoms persist or worsen the patient needs to return immediately for re-evaluation. Based on the history and exam findings, there is no indication for further emergent testing or inpatient evaluation. I discussed with the patient/guardian the need to see the chemotherapist for further evaluation of the symptoms. ED course: Pt with symptoms > 1 week, worse with eating, normal lab w/u, has had gallbladder removed, no diarrhea, will dc home as gastritis/PUD, with antacids and GI f/u. NO complaints or symptoms of GI bleed. . 08/05 08:34 Order name: Basic Metabolic Panel; Complete Time: 09:55 rn 08/05 08:34 Order name: CBC with Diff rn 08/05 08:34 Order name: Hepatic Function; Complete Time: 09:55 rn 08/05 08:34 Order name: Lipase; Complete Time: 09:55 rn 08/05 09:11 Order name: Urine Dipstick--Ancillary (enter results); Complete Time: 09:23 eb 08/05 09:11 Order name: Urine --Ancillary (enter results); Complete Time: 09:23 eb 08/05 08:34 Order name: IV Saline Lock; Complete Time: 08:56 rn 08/05 08:34 Order name: Labs collected and sent; Complete Time: 08:56 rn Administered Medications: 08:45 Drug: GI Cocktail without - (Maalox Suspension 30 ml, Lidocaine Liquid 2 % 15 em ml) Route: PO; 09:40 Follow up: Response: No adverse reaction; Pain is decreased em 08:52 Drug: NS 0.9% 1000 ml Route: IV; Rate: 1000 ml; Site: right antecubital; em 09:50 Follow up: IV Status: Completed infusion; IV Intake: 1000ml em 08:55 Drug: Zofran 4 mg Route: IVP; Site: right antecubital; iw 09:40 Follow up: Response: No adverse reaction; Nausea is decreased em Disposition: 08/05/18 10:55 Discharged to Home. Impression: Gastritis, unspecified, Gastro-esophageal reflux disease. - Condition is Stable. - Discharge Instructions: Gastritis, Adult, Gastroesophageal Reflux Disease, Adult. - Prescriptions for Zantac 300 mg Oral Tablet - take 1 tablet by ORAL route At bedtime; 30 tablet. Zofran ODT 4 mg Oral tablet,disintegrating - place 1 tablet by TRANSLINGUAL route every 8 hours As needed; 15 tablet. - Work release form, Medication Reconciliation Form, Thank You Letter, Antibiotic Education, Prescription Opioid Use form. - Follow up: Darren Espinoza MD; When: As needed; Reason: Recheck today's complaints, Re-evaluation by your physician. - Problem is an ongoing problem. - Symptoms have improved. Signatures: Dispatcher [employer] EDVT Luca Dean, MARINA PORTER MARINA PORTER em Meenakshi Alvarenga RN RN iw Nick Urias MD MD manufacturing engineering intern: (The following items were deleted from the chart) 10:54 10:53 ED course: Pt with symptoms > 1 week, worse with eating, normal lab w/u, has had rn gallbladder removed, no diarrhea, will dc home as gastritis/PUD, with antacids and GI f/u.. rn 11:18 10:55 08/05/2018 10:55 Discharged to Home. Impression: Gastritis, unspecified; em Gastro-esophageal reflux disease. Condition is Stable. Forms are Medication Reconciliation Form, Thank You Letter, Antibiotic Education, Prescription Opioid Use. Follow up: Darren Espinoza; When: As needed; Reason: Recheck today's complaints, Re-evaluation by your physician. Problem is an ongoing problem. Symptoms have improved. rn
--- NOTE | 2018-08-05 10:57 | ER ---
Nurse's Notes [facility] Name: Celina Atkins Age: 38 yrs Sex: Female : 1980 Arrival Date: 08/05/2018 Time: 08:22 Bed 19 Private MD: None, None Diagnosis: Gastritis, unspecified;Gastro-esophageal reflux disease Presentation: 08/05 08:31 Presenting complaint: Patient states: LUQ pain intermittent for weeks, worse last iw night, feels like bloating, c/o nausea, dizzy spell last night bc of pain, pain is worse while eating. Transition of care: patient was not received from another setting of care. Onset of symptoms was July 19, 2018. Risk Assessment: Do you want to hurt yourself or someone else? Patient reports no desire to harm self or others. Initial Sepsis Screen: Does the patient meet any 2 criteria? No. Patient's initial sepsis screen is negative. Does the patient have a suspected source of infection? No. Patient's initial sepsis screen is negative. Care prior to arrival: None. 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 - Irregular menses iw Historical: - Allergies: 08:34 No Known Allergies; iw - Home Meds: 08:34 metoprolol tartrate 25 mg Oral tab 1 tab 2 times per day [Active]; gemfibrozil 600 mg iw Oral tab 1 tab 2 times per day [Active]; - PMHx: 08:34 Ovarian cysts; Hyperlipidemia; Hypertension; iw - PSHx: 08:34 ; Cholecystectomy; Tubal ligation; iw - Ebola Screening: : Patient negative for fever greater than or equal to 101.5 degrees Fahrenheit, and additional compatible Ebola Virus Disease symptoms Patient denies exposure to infectious person Patient denies travel to an Ebola-affected area in the 21 days before illness onset No symptoms or risks identified at this time. - Family history:: not pertinent. - Hospitalizations: : No recent hospitalization is reported. Screenin:40 Abuse screen: Denies threats or abuse. Nutritional screening: No deficits noted. em Tuberculosis screening: No symptoms or risk factors identified. Fall Risk None identified. Assessment: 08:40 General: Appears in no apparent distress. comfortable, Behavior is calm, cooperative, em Denies fever. Pain: Complains of pain in left upper quadrant Pain currently is 9 out of 10 on a pain scale. Aggravated by eating. Neuro: Level of Consciousness is awake, alert, obeys commands, Oriented to person, place, time, situation. Cardiovascular: Patient's skin is warm and dry. Respiratory: Airway is patent Respiratory effort is even, unlabored, Respiratory pattern is regular, symmetrical. GI: Abdomen is obese, Bowel sounds present X 4 quads. Abd is soft X 4 quads Abdomen is tender to palpation in left upper quadrant Reports nausea, Patient currently denies diarrhea, vomiting. : Denies burning with urination, cramping discharge. Derm: Skin is intact, Skin is pink, warm \T\ dry. Musculoskeletal: Range of motion: intact in all extremities. 09:39 Reassessment: Patient appears in no apparent distress at this time. Patient and/or em family updated on plan of care and expected duration. Pain level reassessed. Patient is alert, oriented x 3, equal unlabored respirations, skin warm/dry/pink. pt resting comfortably with eyes closed, reports pain is a little better but still there, Dr. Urias notified. 10:40 Reassessment: Patient appears in no apparent distress at this time. Patient and/or em family updated on plan of care and expected duration. Pain level reassessed. Patient is alert, oriented x 3, equal unlabored respirations, skin warm/dry/pink. Patient states feeling better. Vital Signs: 08:34 BP 151 / 90; Pulse 110; Resp 18 S; Temp 99.2(O); Pulse Ox 97% on R/A; Weight 95.25 kg; iw Height 4 ft. 11 in. (149.86 cm); Pain 9/10; 10:12 BP 156 / 94; Pulse 101; Resp 16; Pulse Ox 98% on R/A; em 11:15 BP 151 / 87; Pulse 98; Resp 18; Pulse Ox 97% on R/A; em 08:34 Body Mass Index 42.41 (95.25 kg, 149.86 cm) iw ED Course: 08:22 Patient arrived in ED. mr 08:23 None, None is Private Physician. mr 08:29 Luca Dean LVN is Primary Nurse. em 08:29 Nick Urias MD is Attending Physician. rn 08:33 Triage completed. iw 08:38 Arm band placed on. iw 08:40 Patient has correct armband on for positive identification. Placed in gown. Bed in low em position. Call light in reach. Pulse ox on. NIBP on. 08:50 Initial lab(s) drawn, by me, sent to lab. Inserted saline lock: 20 gauge in right em antecubital area, using aseptic technique. Blood collected. 10:55 Darren Espinoza MD is Referral Physician. rn 11:14 No provider procedures requiring assistance completed. IV discontinued, intact, em bleeding controlled, No redness/swelling at site. Pressure dressing applied. Administered Medications: 08:45 Drug: GI Cocktail without - (Maalox Suspension 30 ml, Lidocaine Liquid 2 % 15 em ml) Route: PO; 09:40 Follow up: Response: No adverse reaction; Pain is decreased em 08:52 Drug: NS 0.9% 1000 ml Route: IV; Rate: 1000 ml; Site: right antecubital; em 09:50 Follow up: IV Status: Completed infusion; IV Intake: 1000ml em 08:55 Drug: Zofran 4 mg Route: IVP; Site: right antecubital; iw 09:40 Follow up: Response: No adverse reaction; Nausea is decreased em Intake: 09:50 IV: 1000ml; Total: 1000ml. em Outcome: 10:55 Discharge ordered by . rn 11:14 Discharged to home ambulatory, with family. em 11:14 Condition: good 11:14 Discharge instructions given to patient, Instructed on discharge instructions, follow up and referral plans. medication usage, Demonstrated understanding of instructions, follow-up care, medications, Prescriptions given X 2. 11:18 Patient left the ED. em Signatures: Svitlana Ramírez mr DeanLuca, COURT OPERATIONS CLERK COURT OPERATIONS CLERK em Meenakshi Alvarenga, SHERIN RN iw Nick Urias MD MD rn
[2018-08-05 11:43] VITALS: TEMP 99.2
[2018-08-05 11:47] VITALS: BP 151/87; O2SAT 97
== END 2018-08-05 11:18 | disposition home or self-care (01) ==
LOC: ER 08:18
DX: K29.70 Gastritis, unspecified, without bleeding (principal); K21.9 Gastro-esophageal reflux disease without esophagitis; I10 Essential (primary) hypertension; E78.5 Hyperlipidemia, unspecified
CPT/HCPCS: 36415; 80048; 80076; 81003; 81025; 83690; 85025; J2405; J7030

== ENCOUNTER 2018-12-22 15:14 | Observation (INO) | payer BC ==
[2018-12-22 16:02] LABS: Urine Blood 2+ (NEG); Urine Glucose NEGATIVE (NEG); Urine Protein 2+ (NEG); Urine Specific Gravity 1.025 (1.005-1.030)
[2018-12-22 16:25] LABS: Absolute Monocytes 0.4 K/uL (0.1-1.3); Absolute Neutrophil 5.6 K/uL (1.8-8.0); Basophils % 0.4 % (0-1.3); Eosinophils % 0.4 % (0-4.4); Hematocrit 43.5 % (36.0-45.0); Lymphocytes % 13.7 % (15.3-44.8); MPV 8.2 fL (7.6-11.3); RBC Red Blood Cell Count 4.71 M/uL (3.86-4.86)
[2018-12-22] MEDS ORDERED: MORPHINE 4 MG/ML SYR ONE (16:30)
[2018-12-22] MEDS ORDERED: FAMOTIDINE 20 MG/2 ML VIAL IV ONE (16:30)
[2018-12-22] MEDS ORDERED: ONDANSETRON 4 MG/2 ML VIAL ONE (16:30)
[2018-12-22] MEDS ORDERED: NA CHLORIDE 0.9% 1,000 ML ONE ×2 (16:30→18:46)
--- NOTE | 2018-12-22 16:38 | RAD REPORT ---
EXAM DESCRIPTION: RAD - Chest Single View - 12/22/2018 4:32 pm CLINICAL HISTORY: COUGH Chest pain. COMPARISON: Chest Single View dated 04/13/2018; Chest Single View dated 09/21/2017; Chest Single View d ated 08/27/2016 FINDINGS: Portable technique limits examination quality. The lungs are grossly clear. The heart is normal in size. No displaced fractures. IMPRESSION: No acute intrathoracic process suspected.
[2018-12-22 16:44] LABS: ALT/SGPT 53 U/L (12-78); AST/SGOT 36 U/L (15-37); Albumin 3.9 g/dL (3.4-5.0); Alkaline Phosphatase 89 U/L (45-117); BUN Blood Urea Nitrogen 11 mg/dL (7-18); Bicarbonate 26 mmol/L (21-32); Bilirubin Direct 0.2 mg/dL (0-0.2); Bilirubin Total 0.7 mg/dL (0.2-1.0); Glucose Level 89 mg/dL (74-106); Lipase 119 U/L (73-393); Potassium 3.5 mmol/L (3.5-5.1); Protein, Total 7.7 g/dL (6.4-8.2); Sodium Level 139 mmol/L (136-145)
[2018-12-22 16:52] LABS: Magnesium 1.8 mg/dL (1.8-2.4); NT PRO-BNP 14 pg/mL (<125); Troponin (Emerg Dept Use Only) < 0.02 ng/mL (0.0-0.045)
--- NOTE | 2018-12-22 18:23 | RAD REPORT ---
EXAM DESCRIPTION: CTAbdomen Pelvis W Contrast - 12/22/2018 6:12 pm CLINICAL HISTORY: Abdominal pain. ABD PAIN COMPARISON: No comparisons TECHNIQUE: Biphasic CT imaging of the abdomen and pelvis was performed with 100 ml non-ionic IV cont rast. All CT scans are performed using dose optimization technique as appropriate and may include automated exposure control or mA/KV adjustment according to patient size. FINDINGS: The lung bases are clear.Cholecystectomy clips. The liver demonstrates diffuse fatty infiltration. The spleen, pancreas, adrenal glands and kidneys a re within normal limits. No bowel obstruction, free air, free fluid or abscess. Small fat containing umbilical hernia. The barbara endix is normal. No evidence of significant lymphadenopathy. No suspicious bony findings. IMPRESSION: Diffuse fatty liver. Small fat containing umbilical hernia.
--- NOTE | 2018-12-22 18:29 | ER ---
Nurse's Notes [facility] Name: Celina Atkins Age: 38 yrs Sex: Female : 1980 Arrival Date: 12/22/2018 Time: 15:20 Bed 25 Private MD: Diagnosis: Chest pain, unspecified;Essential (primary) hypertension;Abdominal tenderness-resolved Presentation: 12/22 15:22 Presenting complaint: Patient states: RUQ abdominal pain with 2 episodes of vomiting. aj Patient reports burning sensation and pressure in her chest. 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 Transition of care: patient was not received from another setting of care. Onset of symptoms was December 21, 2018. Risk Assessment: Do you want to hurt yourself or someone else? Patient reports no desire to harm self or others. Initial Sepsis Screen: Does the patient meet any 2 criteria? No. Patient's initial sepsis screen is negative. Does the patient have a suspected source of infection? No. Patient's initial sepsis screen is negative. Care prior to arrival: None. 15:22 Method Of Arrival: Ambulatory aj 15:22 Acuity: HAY 3 aj Triage Assessment: 15:24 General: Appears in no apparent distress. comfortable, Behavior is calm, cooperative, aj appropriate for age. Pain: Complains of pain in chest. Neuro: Level of Consciousness is awake, alert, obeys commands, Oriented to person, place, time, situation, Appropriate for age. Respiratory: Airway is patent Respiratory effort is even, unlabored, Respiratory pattern is regular, symmetrical. GI: Reports upper abdominal pain, nausea, vomiting. Derm: Skin is intact, is healthy with good turgor, Skin is pink, warm \T\ dry. normal. 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 - Social history:: Smoking status: Patient/guardian denies using tobacco. - Ebola Screening: : Patient negative for fever greater than or equal to 101.5 degrees Fahrenheit, and additional compatible Ebola Virus Disease symptoms Patient denies exposure to infectious person Patient denies travel to an Ebola-affected area in the 21 days before illness onset No symptoms or risks identified at this time. Screenin:07 Abuse screen: Denies threats or abuse. Denies injuries from another. Nutritional ch screening: No deficits noted. Tuberculosis screening: No symptoms or risk factors identified. Fall Risk None identified. Assessment: 16:07 Reassessment: Patient appears in no apparent distress at this time. Patient and/or ch family updated on plan of care and expected duration. Pain level reassessed. Patient is alert, oriented x 3, equal unlabored respirations, skin warm/dry/pink. General: Appears in no apparent distress. uncomfortable. Pain: Complains of pain in left lower quadrant and right lower quadrant and left upper quadrant and right upper quadrant and chest Pain currently is 8 out of 10 on a pain scale. Pain began suddenly. Neuro: No deficits noted. Level of Consciousness is awake, alert, obeys commands, Oriented to person, place, time, situation. Respiratory: Airway is patent Trachea midline Respiratory effort is even, unlabored, Breath sounds are clear bilaterally. GI: Abdomen is round non-distended, Bowel sounds present X 4 quads. Abd is soft and non tender X 4 quads. Reports upper abdominal pain, nausea. : No signs and/or symptoms were reported regarding the genitourinary system. Derm: Skin is pink, warm \T\ dry. 16:39 Reassessment: drinking contrast in room now. 16:45 Reassessment: Patient appears in no apparent distress at this time. Patient and/or ch family updated on plan of care and expected duration. Pain level reassessed. Patient is alert, oriented x 3, equal unlabored respirations, skin warm/dry/pink. pt finished contrast, CT notified. Patient states feeling better. Patient states symptoms have improved. 18:13 Reassessment: Patient appears in no apparent distress at this time. pt in ct now. when pt returns, pt will get repeat trop and ekg, and another 1L bolus. 18:39 Reassessment: Patient appears in no apparent distress at this time. Patient and/or ch family updated on plan of care and expected duration. Pain level reassessed. Patient is alert, oriented x 3, equal unlabored respirations, skin warm/dry/pink. pt back in room from CT. repeat trop drawn, repeat ekg performed, resps even and unlabored. pt states she feels better. medicated per orders. 20:11 Reassessment: Patient appears in no apparent distress at this time. No changes from previously documented assessment. Patient and/or family updated on plan of care and expected duration. Pain level reassessed. Patient is alert, oriented x 3, equal unlabored respirations, skin warm/dry/pink. I call the floor to give report, awaiting return call. 20:28 Reassessment: Patient appears in no apparent distress at this time. Patient and/or ch family updated on plan of care and expected duration. Pain level reassessed. Patient is alert, oriented x 3, equal unlabored respirations, skin warm/dry/pink. floor calls, report given to haily. Vital Signs: 15:24 BP 146 / 86; Pulse 118; Resp 20; Temp 98.0; Pulse Ox 99% on R/A; Weight 95.25 kg; aj Height 4 ft. 11 in. (149.86 cm); 16:38 BP 145 / 87; Pulse 92; Resp 16; Pulse Ox 97% on R/A; Pain 6/10; ch 17:34 BP 143 / 92; Pulse 106; Resp 18; Temp 99.7(O); Pulse Ox 99% on R/A; Pain 2/10; sv 18:39 BP 135 / 92; Pulse 108; Resp 14; Temp 98.5(O); Pulse Ox 100% on R/A; Pain 2/10; ch 20:12 BP 136 / 95; Pulse 102; Resp 18; Temp 99; Pulse Ox 96% on R/A; Pain 3/10; ch 15:24 Body Mass Index 42.41 (95.25 kg, 149.86 cm) ED Course: 15:20 Patient arrived in ED. ds1 15:23 Triage completed. aj 15:24 Arm band placed on left wrist. Patient placed in an exam room. aj 15:26 Tristian Cooper MD is Attending Physician. favian 15:54 Tara Ortega, SHERIN is Primary Nurse. hb 16:00 No apparent distress. Resting quietly. ch 16:00 No provider procedures requiring assistance completed. Inserted saline lock: 18 gauge ch in left antecubital area, using aseptic technique. Blood collected. 16:07 Caitlin Teague, RN is Primary Nurse. ch 16:07 Patient has correct armband on for positive identification. Placed in gown. Bed in low ch position. Call light in reach. Side rails up X 1. Adult w/ patient. Pulse ox on. NIBP on. 16:11 Oral contrast given. az 16:34 XRAY Chest (1 view) In Process Unspecified. EDMS 18:15 CT Abd/Pelvis - PO and IV Contrast In Process Unspecified. EDMS 18:25 Ricardo Fairchild MD is Hospitalizing Provider. favian 20:12 Patient admitted, IV remains in place. Administered Medications: 16:20 Drug: NS 0.9% 1000 ml Route: IV; Rate: 1 bolus; Site: left antecubital; ch 17:02 Follow up: IV Status: Completed infusion ch 16:20 Drug: morphine 4 mg Route: IVP; Site: left antecubital; ch 17:03 Follow up: Response: No adverse reaction; Marked relief of symptoms ch 16:20 Drug: Zofran 4 mg Route: IVP; Site: left antecubital; ch 17:02 Follow up: Response: No adverse reaction; Marked relief of symptoms ch 16:20 Drug: Pepcid 20 mg Route: IVP; Site: left antecubital; ch 17:02 Follow up: Response: No adverse reaction ch 18:39 Drug: NS 0.9% 1000 ml Route: IV; Rate: 1 bolus; Site: left antecubital; ch 19:45 Follow up: IV Status: Completed infusion ch 19:10 Drug: Lovenox 1 mg/kg Route: Sub-Q; Site: abdomen; ch 19:46 Follow up: Response: No adverse reaction; Marked relief of symptoms ch 19:20 Drug: Aspirin Chewable Tablet 162 mg Route: PO; ch 19:46 Follow up: Response: No adverse reaction 19:30 Drug: Lopressor 25 mg Route: PO; ch 19:46 Follow up: Response: No adverse reaction Outcome: 18:28 Decision to Hospitalize by Provider. favian 20:44 Admitted to Med/surg accompanied by tech, via wheelchair, with chart, Report called to Haily 20:44 Condition: stable 20:44 Instructed on the need for admit. 20:56 Patient left the ED. jd3 Signatures: Dispatcher [employer] EDCaitlin Castle RN Gayathri Landry ch, RN RN sv Myers, Amanda, RN RN aj Anderson, Corey, MD MD cha Sanford, Demi ds1 Tara Ortega RN RN hb Davies, Jonathon, RN RN jd3 Miriam Baltazar Corrections: (The following items were deleted from the chart) 17:36 17:34 BP 143 / 92; Pulse 106bpm; Resp 18bpm; Pulse Ox 99% RA; Temp 99F Oral; Pain 2/10; sv sv
--- NOTE | 2018-12-22 18:29 | EDPHYS ---
Physician Documentation [facility] Name: Celina Atkins Age: 38 yrs Sex: Female : 1980 Arrival Date: 12/22/2018 Time: 15:20 Bed 25 Private MD: ED Physician Tristian Cooper HPI: 12/22 16:05 This 38 yrs old Female presents to ER via Ambulatory with complaints of [facility] Abdominal Pain, Weakness. 16:05 The patient presents to the emergency department with weakness of the. [facility] MOUNTER SOUSAPHONES: 15:24 LMP N/A - Irregular menses aj Historical: - Allergies: 15:24 No Known Allergies; aj - Home Meds: 15:24 metformin 500 mg Oral tab 1 tab 2 times per day [Active]; rosuvastatin 10 mg oral tab 1 aj tab once daily [Active]; - PMHx: 15:24 Hyperlipidemia; Diabetes - NIDDM; Hypertension; Ovarian cysts; aj - PSHx: 15:24 ; Cholecystectomy; Tubal ligation; aj - Immunization history:: Adult Immunizations up to date. - Social history:: Smoking status: Patient/guardian denies using tobacco. - Ebola Screening: : Patient negative for fever greater than or equal to 101.5 degrees Fahrenheit, and additional compatible Ebola Virus Disease symptoms Patient denies exposure to infectious person Patient denies travel to an Ebola-affected area in the 21 days before illness onset No symptoms or risks identified at this time. ROS: 16:06 Constitutional: Negative for fever, chills, and weight loss, Eyes: Negative for injury, favian pain, redness, and discharge, ENT: Negative for injury, pain, and discharge, Neck: Negative for injury, pain, and swelling, Respiratory: Negative for shortness of breath, cough, wheezing, and pleuritic chest pain, Back: Negative for injury and pain, : Negative for injury, bleeding, discharge, and swelling, MS/Extremity: Negative for injury and deformity, Skin: Negative for injury, rash, and discoloration, Neuro: Negative for headache, weakness, numbness, tingling, and seizure, Psych: Negative for depression, anxiety, suicide ideation, homicidal ideation, and hallucinations, Allergy/Immunology: Negative for hives, rash, and allergies, Endocrine: Negative for neck swelling, polydipsia, polyuria, polyphagia, and marked weight changes, Hematologic/Lymphatic: Negative for swollen nodes, abnormal bleeding, and unusual bruising. 16:06 Cardiovascular: Positive for chest pain, with cough. 16:06 Respiratory: Positive for 16:06 Abdomen/GI: Positive for abdominal pain, of the right upper quadrant, left upper quadrant, right lower quadrant and left lower quadrant. Exam: 16:06 Constitutional: This is a well developed, well nourished patient who is awake, alert, favian and in no acute distress. Head/Face: Normocephalic, atraumatic. Eyes: Pupils equal round and reactive to light, extra-ocular motions intact. Lids and lashes normal. Conjunctiva and sclera are non-icteric and not injected. Cornea within normal limits. Periorbital areas with no swelling, redness, or edema. ENT: Nares patent. No nasal discharge, no septal abnormalities noted. Tympanic membranes are normal and external auditory canals are clear. Oropharynx with no redness, swelling, or masses, exudates, or evidence of obstruction, uvula midline. Mucous membranes moist. Neck: Trachea midline, no thyromegaly or masses palpated, and no cervical lymphadenopathy. Supple, full range of motion without nuchal rigidity, or vertebral point tenderness. No Meningismus. Chest/axilla: Normal chest wall appearance and motion. Nontender with no deformity. No lesions are appreciated. Cardiovascular: Regular rate and rhythm with a normal S1 and S2. No gallops, murmurs, or rubs. Normal PMI, no JVD. No pulse deficits. Respiratory: Lungs have equal breath sounds bilaterally, clear to auscultation and percussion. No rales, rhonchi or wheezes noted. No increased work of breathing, no retractions or nasal flaring. Abdomen/GI: Soft, non-tender, with normal bowel sounds. No distension or tympany. No guarding or rebound. No evidence of tenderness throughout. Back: No spinal tenderness. No costovertebral tenderness. Full range of motion. Skin: Warm, dry with normal turgor. Normal color with no rashes, no lesions, and no evidence of cellulitis. MS/ Extremity: Pulses equal, no cyanosis. Neurovascular intact. Full, normal range of motion. Neuro: Awake and alert, GCS 15, oriented to person, place, time, and situation. Cranial nerves II-XII grossly intact. Motor strength 5/5 in all extremities. Sensory grossly intact. Cerebellar exam normal. Normal gait. Psych: Awake, alert, with orientation to person, place and time. Behavior, mood, and affect are within normal limits. 16:14 Musculoskeletal/extremity: DVT Exam: No signs of deep vein thrombosis. no pain, no favian swelling, no tenderness, negative Homans' sign noted on exam, no appreciated bluish discoloration, no erythema, no increased warmth. Vital Signs: 15:24 BP 146 / 86; Pulse 118; Resp 20; Temp 98.0; Pulse Ox 99% on R/A; Weight 95.25 kg; aj Height 4 ft. 11 in. (149.86 cm); 16:38 BP 145 / 87; Pulse 92; Resp 16; Pulse Ox 97% on R/A; Pain 6/10; ch 17:34 BP 143 / 92; Pulse 106; Resp 18; Temp 99.7(O); Pulse Ox 99% on R/A; Pain 2/10; sv 18:39 BP 135 / 92; Pulse 108; Resp 14; Temp 98.5(O); Pulse Ox 100% on R/A; Pain 2/10; ch 20:12 BP 136 / 95; Pulse 102; Resp 18; Temp 99; Pulse Ox 96% on R/A; Pain 3/10; ch 15:24 Body Mass Index 42.41 (95.25 kg, 149.86 cm) MDM: 15:26 Patient medically screened. [facility] 16:07 Data reviewed: vital signs, nurses notes, lab test result(s), EKG, radiologic studies, [facility] CT scan, plain films. 12/22 15:43 Order name: Urine Dipstick--Ancillary (enter results); Complete Time: 16:48 12/22 15:43 Order name: Urine --Ancillary (enter results); Complete Time: 16:48 12/22 16:05 Order name: Basic Metabolic Panel; Complete Time: 16:48 [facility] 12/22 16:05 Order name: CBC with Diff; Complete Time: 16:48 [facility] 12/22 16:05 Order name: Creatinine for Radiology; Complete Time: 16:48 [facility] 12/22 16:05 Order name: Hepatic Function; Complete Time: 16:48 [facility] 12/22 16:05 Order name: Lipase; Complete Time: 16:48 [facility] 12/22 16:09 Order name: Magnesium; Complete Time: 17:19 [facility] 12/22 16:09 Order name: NT PRO-BNP; Complete Time: 17:19 [facility] 12/22 16:09 Order name: PT-INR; Complete Time: 16:48 [facility] 12/22 16:09 Order name: Troponin (emerg Dept Use Only); Complete Time: 17:19 [facility] 12/22 18:13 Order name: Troponin (emerg Dept Use Only); Complete Time: 19:05 12/22 19:47 Order name: Lipid Profile EDAR 12/22 19:47 Order name: Lipid Profile EDAR 12/22 16:05 Order name: CT Abd/Pelvis - PO and IV Contrast; Complete Time: 19:05 [facility] 12/22 16:09 Order name: XRAY Chest (1 view); Complete Time: 16:48 [facility] 12/22 16:09 Order name: EKG; Complete Time: 16:12 [facility] 12/22 18:13 Order name: EKG; Complete Time: 18:15 12/22 19:47 Order name: Echo with Doppler EDAR 12/22 19:47 Order name: Troponin I EDAR 12/22 19:47 Order name: Troponin I EDAR 12/22 19:47 Order name: Troponin I EDAR 12/22 16:05 Order name: IV Saline Lock; Complete Time: 16:07 [facility] 12/22 16:05 Order name: Labs collected and sent; Complete Time: 17:03 [facility] 12/22 16:09 Order name: Cardiac monitoring; Complete Time: 17:08 [facility] 12/22 16:09 Order name: EKG - Nurse/Tech; Complete Time: 17:02 [facility] 12/22 16:09 Order name: O2 Per Protocol; Complete Time: 16:31 [facility] 12/22 16:09 Order name: O2 Sat Monitoring; Complete Time: 16:31 [facility] 12/22 19:47 Order name: Heart Healthy EDAR 12/22 19:47 Order name: EKG Electrocardiogram EDAR 12/22 19:47 Order name: EKG Electrocardiogram EDMS Administered Medications: 16:20 Drug: NS 0.9% 1000 ml Route: IV; Rate: 1 bolus; Site: left antecubital; ch 17:02 Follow up: IV Status: Completed infusion 16:20 Drug: morphine 4 mg Route: IVP; Site: left antecubital; ch 17:03 Follow up: Response: No adverse reaction; Marked relief of symptoms ch 16:20 Drug: Zofran 4 mg Route: IVP; Site: left antecubital; ch 17:02 Follow up: Response: No adverse reaction; Marked relief of symptoms ch 16:20 Drug: Pepcid 20 mg Route: IVP; Site: left antecubital; ch 17:02 Follow up: Response: No adverse reaction ch 18:39 Drug: NS 0.9% 1000 ml Route: IV; Rate: 1 bolus; Site: left antecubital; ch 19:45 Follow up: IV Status: Completed infusion ch 19:10 Drug: Lovenox 1 mg/kg Route: Sub-Q; Site: abdomen; ch 19:46 Follow up: Response: No adverse reaction; Marked relief of symptoms ch 19:20 Drug: Aspirin Chewable Tablet 162 mg Route: PO; ch 19:46 Follow up: Response: No adverse reaction ch 19:30 Drug: Lopressor 25 mg Route: PO; ch 19:46 Follow up: Response: No adverse reaction Disposition: 12/22/18 18:28 Hospitalization ordered by Ricardo Fairchild for Observation. Preliminary diagnosis are Chest pain, unspecified, Essential (primary) hypertension, Abdominal tenderness - resolved. - Bed requested for Telemetry/MedSurg (observation). - Status is Observation. jd3 - Condition is Stable. - Problem is new. - Symptoms have improved. UTI on Admission? No Signatures: Dispatcher [employer] EDMS Caitlin Teague RN RN ch Woody, Diana, RN RN dw Myers, Amanda, RN RN aj Anderson, Corey, MD MD cha Davies, Jonathon, RN RN jd3 Corrections: (The following items were deleted from the chart) 19:56 18:28 Hospitalization Ordered by Ricardo Fairchild MD for Observation. Preliminary diagnosis dw is Chest pain, unspecified; Essential (primary) hypertension; Abdominal tenderness - resolved. Bed requested for Telemetry/MedSurg (observation). Status is Observation. Condition is Stable. Problem is new. Symptoms have improved. UTI on Admission? No. [facility] 20:56 19:56 12/22/2018 18:28 Hospitalization Ordered by Ricardo Fairchlid MD for Observation. jd3 Preliminary diagnosis is Chest pain, unspecified; Essential (primary) hypertension; Abdominal tenderness - resolved. Bed requested for Telemetry/MedSurg (observation). Status is Observation. Condition is Stable. Problem is new. Symptoms have improved. UTI on Admission? No. dw
[2018-12-22] MEDS ORDERED: METOPROLOL TAR 25 MG TAB ONE (19:03)
[2018-12-22] MEDS ORDERED: ASPIRIN 81 MG CHEWABLE TABLET ONE (19:03)
[2018-12-22] MEDS ORDERED: ENOXAPARIN 100 MG/ML SYR SQ ONE (19:04)
[2018-12-22] MEDS ORDERED: ACETAMINOPHEN 500 MG TAB PO PRN (19:42)
[2018-12-22] MEDS ORDERED: MORPHINE 4 MG/ML SYR IV PRN (19:42)
[2018-12-22] MEDS ORDERED: ONDANSETRON 4 MG/2 ML VIAL IV PRN (21:27)
[2018-12-22 21:30] VITALS: BMI 41.9
[2018-12-22] MEDS: METOPROLOL TAR 50 MG TAB PO SCH (21:33)
[2018-12-23 01:01] LABS: Urine Appearance CLEAR; Urine Bilirubin NEGATIVE (NEG); Urine Blood 1+ (NEG); Urine Color YELLOW; Urine Glucose NEGATIVE (NEG); Urine Protein NEGATIVE (NEG); Urine pH 6.5 (5.0-7.0)
[2018-12-23 01:09] LABS: Urine Microscopic Reflex ORDER UMIC
[2018-12-23 02:01] LABS: Urine Bacteria <20 /HPF (<20); Urine Culture Reflex Order NOT NEEDED; Urine RBC <5 /HPF (NONE SEEN)
--- NOTE | 2018-12-23 07:16 | EKG ---
Test Date: 2018-12-22 Test Time: 18:35:00 Machine Wiper: SATYA MEASUREMENT RESULTS: Intervals: Rate: 107 UT: 164 QRSD: 74 QT: 334 QTc: 445 [place]: P: 44 UT: 164 QRS: 8 T: 51 INTERPRETIVE STATEMENTS: Sinus tachycardia Moderate voltage criteria for LVH, may be normal variant Borderline ECG Compared to ECG 12/22/2018 16:48:46 T-wave abnormality no longer present Electronically Signed On 12-23-18 07:15:36 CDT by David Beard
--- NOTE | 2018-12-23 07:17 | EKG ---
Test Date: 2018-12-22 Test Time: 16:48:46 Construction Technician: BAM MEASUREMENT RESULTS: Intervals: Rate: 105 OR: 176 QRSD: 78 QT: 356 QTc: 470 [place]: P: 39 OR: 176 QRS: -3 T: 43 INTERPRETIVE STATEMENTS: Sinus tachycardia Voltage criteria for left ventricular hypertrophy Nonspecific T wave abnormality Abnormal ECG Compared to ECG 04/13/2018 21:06:45 Sinus rhythm no longer present Prolonged QT interval no longer present T-wave abnormality still present Electronically Signed On 12-23-18 07:15:40 CDT by David Beard
[2018-12-23] MEDS ORDERED: ASPIRIN EC 81 MG TAB PO SCH (09:00)
[2018-12-23] MEDS: METOPROLOL TAR 50 MG TAB PO SCH (10:05)
--- NOTE | 2018-12-23 10:11 | P.HP ---
Certification for Inpatient Patient admitted to: Observation With expected LOS: <2 Midnights Patient will require the following post-hospital care: None Practitioner: I am a practitioner with admitting privileges, knowledge of patient current condition, hospital course, and medical plan of care. Services: Services provided to patient in accordance with Admission requirements found in Title 42 Section 412.3 of the Code of Federal Regulations Patient History Date of Service: 12/22/18 Reason for admission: Chest pain rule out acute coronary syndrome History of Present Illness: Patient is a 38-year-old female who comes into the hospital with chest pain. The pain is around the epigastric region and has been getting worse over the last 24 hr. She has seen a merchandise complaint adjuster in the recent past and she states she had a chemical stress test which was unremarkable. She is having some nausea and pain that is not alleviated with pain medication. In the emergency room she has had a CT scan which revealed an umbilical hernia and fatty liver but no other abnormalities. Her 1st troponin and EKG were negative. We will do another EKG and repeat troponins q.8 hours and if these come back negative and she can be discharged with outpatient follow-up for the epigastric tenderness. She may need an EGD and treatment with a PPI. This can be monitored as an outpatient. She will be admitted for observation status. Allergies No Known Allergies Allergy (Unverified 12/22/18 20:28) Home Medications: Candesartan Cilexetil [Atacand] 16 mg PO DAILY 12/22/18 Metformin HCl [Glucophage] 1,000 mg PO BIDWM 12/22/18 Rosuvastatin Calcium 10 mg PO BEDTIME 12/22/18 - Past Medical/Surgical History Has patient received pneumonia vaccine in the past: No Diabetic: Yes -: Diabetes mellitus type 2 -: Hypertension -: Hyperlipidemia -: Obesity -: Tubal ligation -: -: Cholecystectomy Psychosocial/ Personal History: The patient is . She has 3 children. 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 moist/pink, EOMI, Sclerae nonicteric Neck: Supple, 2+ carotid pulse no bruit, No LAD, Without JVD or thyroid abnormality Respiratory: Clear to auscultation bilaterally, Normal air movement Cardiovascular: Regular rate/rhythm, Normal S1 S2, No murmurs Gastrointestinal: Normal bowel sounds, Soft and benign, Non-distended, No tenderness, No guarding Musculoskeletal: No clubbing, No swelling, No tenderness Integumentary: No rashes Neurological: Normal gait, Normal speech, Normal strength at 5/5 x4 extr, Normal tone, Sensation intact, Cranial nerves 3-12 intact, Normal affect Lymphatics: No axilla or inguinal lymphadenopathy - Studies Laboratory Data (last 24 hrs) 12/22/18 16:28: PT 11.8, INR 1.00 12/22/18 16:28: Magnesium 1.8 12/22/18 16:00: Creatinine 0.66 12/22/18 16:00: WBC 7.1, Hgb 14.2, Hct 43.5, Plt Count 308 12/22/18 16:00: Sodium 139, Potassium 3.5, BUN 11, Creatinine 0.64, Glucose 89, Total Bilirubin 0.7, AST 36, ALT 53, Alkaline Phosphatase 89, Lipase 119 Assessment & Plan - Problems (Diagnosis) (1) Chest pain, rule out acute myocardial infarction Current Visit: Yes Status: Acute (2) Epigastric abdominal pain Current Visit: Yes Status: Acute (3) Diabetes mellitus Onset Date: 09/22/17 Current Visit: No Status: Chronic Qualifiers: Diabetes mellitus type: type 2 Diabetes mellitus termite exterminator insulin use: without termite exterminator use Diabetes mellitus complication status: with other specified complication Qualified Code(s): E11.69 - Type 2 diabetes mellitus with other specified complication (4) Hyperlipidemia Onset Date: 09/22/17 Current Visit: No Status: Chronic Qualifiers: Hyperlipidemia type: mixed hyperlipidemia Qualified Code(s): E78.2 - Mixed hyperlipidemia (5) Hypertension Onset Date: 09/22/17 Current Visit: No Status: Chronic Qualifiers: Hypertension type: essential hypertension Qualified Code(s): I10 - Essential (primary) hypertension (6) Obesity Onset Date: 09/22/17 Current Visit: No Status: Chronic Qualifiers: Obesity type: due to excess calories Obesity classification: adult class 2 (BMI 35 - 39.9) Serious obesity comorbidity presence: with serious comorbidity Body mass index: BMI 39.0-39.9 Qualified Code(s): E66.01 - Morbid (severe) obesity due to excess calories; Z68.39 - Body mass index (BMI) 39.0-39.9, adult; Z68.39 - Body mass index (BMI) 39.0-39.9, adult (7) GERD (gastroesophageal reflux disease) Onset Date: 09/22/17 Current Visit: No Status: Suspected Qualifiers: Esophagitis presence: esophagitis presence not specified Qualified Code(s) : K21.9 - Gastro-esophageal reflux disease without esophagitis - Plan 1. Serial troponins and EKG 2. Cardiology consultation 3. Echocardiogram and further outpatient testing with GI if her cardiac workup is once again unremarkable 4. Anti-platelet therapy, anti coagulation, beta-shaun, statin, and O2 as needed 5. IV morphine for pain 6. Nitro p.r.n. Discharge Plan: Home Plan to discharge in: 24 Hours - Advance Directives Does patient have a Living Will: No Does patient have a Durable POA for Healthcare: No - Code Status/Comfort Care Code Status Assessed: Yes Code Status: Full Code Critical Care: No Time Spent Managing PTS Care (In Minutes): 45
[2018-12-23 11:47] VITALS: O2SAT 95
--- NOTE | 2018-12-23 12:21 | P.SSS ---
Patient History Date of Service: 12/23/18 Reason for admission: Chest pain rule out acute coronary syndrome History of Present Illness: Patient is a 38-year-old female who comes into the hospital with chest pain. The pain is around the epigastric region and has been getting worse over the last 24 hr. She has seen a supervisor cell maintenance in the recent past and she states she had a chemical stress test which was unremarkable. She is having some nausea and pain that is not alleviated with pain medication. In the emergency room she has had a CT scan which revealed an umbilical hernia and fatty liver but no other abnormalities. Her 1st troponin and EKG were negative. We will do another EKG and repeat troponins q.8 hours and if these come back negative and she can be discharged with outpatient follow-up for the epigastric tenderness. She may need an EGD and treatment with a PPI. This can be monitored as an outpatient. She will be admitted for observation status. Allergies No Known Allergies Allergy (Unverified 12/22/18 20:28) Home medications list reviewed: Yes Home Medications: RX: Candesartan Cilexetil [Atacand] 16 mg PO DAILY 12/22/18 RX: Metformin HCl [Glucophage*] 1,000 mg PO BIDWM 12/22/18 RX: Rosuvastatin Calcium 10 mg PO BEDTIME 12/22/18 - Past Medical/Surgical History Has patient received pneumonia vaccine in the past: No Diabetic: Yes -: Diabetes mellitus type 2 -: Hypertension -: Hyperlipidemia -: Obesity -: Tubal ligation -: -: Cholecystectomy Psychosocial/ Personal History: The patient is . 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 moist/pink, EOMI, Sclerae nonicteric Neck: Supple, 2+ carotid pulse no bruit, No LAD, Without JVD or thyroid abnormality Respiratory: Clear to auscultation bilaterally, Normal air movement Cardiovascular: Regular rate/rhythm, Normal S1 S2 Gastrointestinal: Normal bowel sounds, No tenderness Musculoskeletal: No tenderness Integumentary: No rashes Neurological: Normal gait, Normal speech, Normal strength at 5/5 x4 extr, Normal tone, Normal affect Lymphatics: No axilla or inguinal lymphadenopathy - Studies Laboratory Data (last 24 hrs) 12/22/18 16:28: PT 11.8, INR 1.00 12/22/18 16:28: Magnesium 1.8 12/22/18 16:00: Creatinine 0.66 12/22/18 16:00: WBC 7.1, Hgb 14.2, Hct 43.5, Plt Count 308 12/22/18 16:00: Sodium 139, Potassium 3.5, BUN 11, Creatinine 0.64, Glucose 89, Total Bilirubin 0.7, AST 36, ALT 53, Alkaline Phosphatase 89, Lipase 119 - Diagnosis (Problem(s)) (1) Chest pain, rule out acute myocardial infarction Current Visit: Yes Status: Acute (2) Epigastric abdominal pain Current Visit: Yes Status: Acute (3) Diabetes mellitus Onset Date: 09/22/17 Current Visit: No Status: Chronic Qualifiers: Diabetes mellitus type: type 2 Diabetes mellitus skilled nursing insulin use: without skilled nursing use Diabetes mellitus complication status: with other specified complication Qualified Code(s): E11.69 - Type 2 diabetes mellitus with other specified complication (4) Hypertension Onset Date: 09/22/17 Current Visit: No Status: Chronic Qualifiers: Hypertension type: essential hypertension Qualified Code(s): I10 - Essential (primary) hypertension (5) Hyperlipidemia Onset Date: 09/22/17 Current Visit: No Status: Chronic Qualifiers: Hyperlipidemia type: mixed hyperlipidemia Qualified Code(s): E78.2 - Mixed hyperlipidemia (6) GERD (gastroesophageal reflux disease) Onset Date: 09/22/17 Current Visit: No Status: Suspected Qualifiers: Esophagitis presence: esophagitis presence not specified Qualified Code(s) : K21.9 - Gastro-esophageal reflux disease without esophagitis (7) Obesity Onset Date: 09/22/17 Current Visit: No Status: Chronic Qualifiers: Obesity type: due to excess calories Obesity classification: adult class 2 (BMI 35 - 39.9) Serious obesity comorbidity presence: with serious comorbidity Body mass index: BMI 39.0-39.9 Qualified Code(s): E66.01 - Morbid (severe) obesity due to excess calories; Z68.39 - Body mass index (BMI) 39.0-39.9, adult Treatment Summary: Patient was admitted for chest and abdominal pain. Cardiology was consulted. ACS was ruled out with negative troponins x3 and normal echocardiogram. Her symptoms resolved. She was then cleared for discharge from cardiology point of view. She was counseled on weight loss with lifestyle modifications including diet and exercise. If abdominal/symptoms reoccur, she will need outpatient GI testing, especially as her cardiac workup is negative. Prior to discharge, she was alert oriented x3, in no acute distress and hemodynamically stable. Her treatment plan and diagnoses were explained to her. All questions were answered and patient verbalized understanding. She was then discharged home in a safe and stable manner. - Disposition Discharge Date: 12/23/18 Disposition: ROUTINE DISCHARGE Condition: GOOD Consultations: Cardiology Patient Discharge Instructions: Please follow up with the primary care physician in 2-3 days. Please follow up with a GI doctor if you're symptoms reoccur. Information for a GI doctor has been provided to you. Please return to the emergency room for worsening symptoms. Diet: AHA Activity: Ad rhona
[2018-12-23] MEDS ORDERED: ENOXAPARIN 40 MG/0.4 ML SQ SCH (17:00)
[2018-12-23 17:19] VITALS: BP 116/58; TEMP 97.9
--- NOTE | 2018-12-24 09:06 | EKG ---
Test Date: 2018-12-23 Test Time: 07:35:31 Centrifugal Casting Machine Operator: BAM MEASUREMENT RESULTS: Intervals: Rate: 73 RI: 164 QRSD: 82 QT: 418 QTc: 460 [place]: P: 51 RI: 164 QRS: 17 T: 62 INTERPRETIVE STATEMENTS: Normal sinus rhythm Minimal voltage criteria for LVH, may be normal variant Nonspecific T wave abnormality Prolonged QT Abnormal ECG Compared to ECG 12/22/2018 18:35:00 T-wave abnormality now present Prolonged QT interval now present Sinus tachycardia no longer present Electronically Signed On 12-24-18 09:01:28 CDT by David Beard
--- NOTE | 2018-12-26 10:10 | ECHO ---
HEIGHT: 4 ft 11 in WEIGHT: 207 lb 9.6 oz DATE OF STUDY: 12/23/[address]: Sandrine Martinez MD 2-DIMENSIONAL: YES M.MODE: YES DOPPLER: YES COLOR FLOW: YES TDS: NO PORTABLE: NO DEFINITY: NO BUBBLE STUDY: NO DIAGNOSIS: CHEST PAIN CARDIAC HISTORY: CATHERIZATION: NO SURGERY: NO PROSTHETIC VALVE: NO PACEMAKER: NO MEASUREMENTS (cm) DIASTOLIC (NORMALS) SYSTOLIC (NORMALS) IVSd 1.2 (0.6-1.2) LA Diam (1.9-4.0) LVEF 50% LVIDd 4.4 (3.5-5.7) LVIDs 3.3 (2.0-3.5) %FS 25% LVPWd 1.3 (0.6-1.2) Ao Diam 2.6 (2.0-3.7) 2 DIMENSIONAL ASSESSMENT: RIGHT ATRIUM: NORMAL LEFT ATRIUM: NORMAL RIGHT VENTRICLE: NORMAL LEFT VENTRICLE: NORMAL TRICUSPID VALVE: NORMAL MITRAL VALVE: NORMAL PULMONIC VALVE: NORMAL AORTIC VALVE: NORMAL PERICARDIAL EFFUSION: NONE AORTIC ROOT: NORMAL LEFT VENTRICULAR WALL MOTION: NORMAL. DOPPLER/COLOR FLOW: NORMAL. COMMENTS: NORMAL 2D ECHOCARDIOGRAM WITH DOPPLER. NO WALL MOTION ABNORMALITIES. NO EFFUSION. TECHNOLOGIST: ANITHA BO
== END 2018-12-23 17:57 | disposition home or self-care (01) ==
LOC: ER 15:14 → ERHOLD 19:42 → 4TH 20:28
PROVIDERS: ADMIT Hospitalist; ATTEND Family Medicine
DX: R07.9 Chest pain, unspecified (principal); R10.13 Epigastric pain; R94.31 Abnormal electrocardiogram [ECG] [EKG]; E11.9 Type 2 diabetes mellitus without complications; I10 Essential (primary) hypertension; E78.2 Mixed hyperlipidemia; K76.0 Fatty (change of) liver, not elsewhere classified; K42.9 Umbilical hernia without obstruction or gangrene; E66.01 Morbid (severe) obesity due to excess calories; Z68.39 Body mass index [BMI] 39.0-39.9, adult; Z79.84 Long term (current) use of oral hypoglycemic drugs; Z79.899 Other long term (current) drug therapy; Z82.49 Family history of ischemic heart disease and other diseases of the circulatory system
CPT/HCPCS: 36415; 71045; 74177; 80048; 80061; 80076; 81003; 81015; 81025; 82962; 83690; 83735; 83880; 84484; 85025; 85610; 93005; 93306; 96361; 96372; 96374; 96375; 99285; G0378; J1650; J2405; J7030; Q9967

== ENCOUNTER 2019-03-08 08:01 | Day surgery (SDC) | payer BC ==
[2019-03-08] MEDS ORDERED: NA CHLORIDE 0.9% 1,000 ML ONE ×2 (08:19→09:19)
[2019-03-08 08:32] VITALS: O2SAT 94
[2019-03-08] MEDS ORDERED: FENTANYL CITR 100 MCG/2 ML ONE (09:00)
[2019-03-08] MEDS ORDERED: PROPOFOL 200 MG/20 ML VIAL IV ONE (09:00)
[2019-03-08] MEDS: LIDOCAINE 1% W/EPI 1:100,000 MDV 20 ML VIAL ONE ×2 (09:16→10:04)
[2019-03-08] MEDS ORDERED: VASOPRESSIN 20 UNIT/ML VIAL ONE (09:19)
[2019-03-08] MEDS ORDERED: NS 0.9% VIAL 0 ML ONE (09:19)
[2019-03-08] MEDS ORDERED: ONDANSETRON 4 MG/2 ML VIAL ONE (09:21)
[2019-03-08] MEDS ORDERED: MIDAZOLAM HCL 2 MG/2 ML INJ ONE (09:21)
[2019-03-08] MEDS ORDERED: LIDOCAINE 1% MPF 2 ML AMPULE ONE (09:21)
[2019-03-08] MEDS ORDERED: KETOROLAC 30 MG/ML INJ ONE (10:14)
[2019-03-08 11:08] VITALS: BP 118/73; TEMP 98.9
--- NOTE | 2019-03-08 21:00 | OP ---
Date of Procedure: 03/08/2019 Surgeon: Jenna Sheikh MD Preoperative Diagnoses: Menorrhagia, endometrial thickening, pelvic pain, oligomenorrhea, endometria l lining was 1.7 cm. Postoperative Diagnoses: Menorrhagia, endometrial thickening, pelvic pain, oligomenorrhea, endometri al lining was 1.7 cm. Procedure Performed: Hysteroscopy, D and C. Anesthesia: MAC plus paracervical block. Specimens: Endometrial curettings. Complications: No complications. Condition: Stable. Findings: Endometrial cavity with thickened endometrium, irregular, mostly on the posterior wall. N o intracavitary lesions. Adequate sampling was performed. Indications: Patient is a 38-year-old with oligomenorrhea and the pelvic pain. We did a transvagina l ultrasound that showed an endometrial thickness of 1.7 cm. This was heterogeneous. On review of t he images, question possible polyp. So, she was consented for cavity visualization procedure and debora pling, hysteroscopy, D and C. Description Of Procedure: Once the patient was seen in the preop, she was taken back to the OR after re-consenting, placed in a supine fashion on the operating table. MAC was given and patient placed in dorsal lithotomy using Raúl stirrups. Pelvic exam performed, uterus anteflexed. Speculum was pl aced to expose the cervix. Anterior lip injected with 1% lidocaine mixed with 1:100,000 epinephrine 10 mL and then at 4 and 8 o'clock positions of the cervicovaginal junction 5 mL each. Prep x3 with B etadine was done. Diagnostic SlimLine hysteroscope was used after placing the tenaculum on the anter ior lip, 30-degree lens and normal saline was used for the hysteroscopy. Cavity with thickened endom etrium and slightly irregular in the posterior wall. No intracavitary lesions, both tubal ostia were visualized. Scope removed, endometrial curettings performed with a 0 curette. Excellent amount of fat tissue sample was obtained. This was sent for permanent pathology. All the instruments were rem gallo. Instrument, needle, and sponge counts were done and were correct at the end of the case. The patient was given 30 mg of IV Toradol. She will follow up with me in 1 week. She has this appointme nt already. PEARL/SHARAN Voice ID: [id number] Report ID: [id number]
== END 2019-03-08 11:30 | disposition home or self-care (01) ==
LOC: OR 08:01
PROVIDERS: ATTEND Obstetrics & Gynecology
PROC: 0UJD8ZZ Inspection of Uterus and Cervix, Via Natural or Artificial Opening Endoscopic (ICD-10-PCS; 2019-03-08)
PROC: 0UDB7ZX Extraction of Endometrium, Via Natural or Artificial Opening, Diagnostic (ICD-10-PCS; principal; 2019-03-08 10:00)
DX: N92.0 Excessive and frequent menstruation with regular cycle (principal); N85.00 Endometrial hyperplasia, unspecified; N91.5 Oligomenorrhea, unspecified; R10.2 Pelvic and perineal pain; N83.209 Unspecified ovarian cyst, unspecified side; E11.9 Type 2 diabetes mellitus without complications; I10 Essential (primary) hypertension; E78.00 Pure hypercholesterolemia, unspecified; R12 Heartburn; E66.01 Morbid (severe) obesity due to excess calories; Z68.41 Body mass index [BMI] 40.0-44.9, adult; Z83.3 Family history of diabetes mellitus; Z82.49 Family history of ischemic heart disease and other diseases of the circulatory system; Z82.3 Family history of stroke
CPT/HCPCS: 81025; 82962; 88305; 58558; J2704; J2250; J3010; J2001; J7030 ×2; J2405

== ENCOUNTER 2019-09-28 09:02 | Day surgery (SDC) | payer BC ==
[2019-09-25 11:06] LABS: Absolute Lymphocytes (CBC) 3.2 K/uL (0.7-4.9); Hematocrit 42.7 % (36.0-45.0); Lymphocytes % 33.1 % (15.3-44.8); MPV 8.3 fL (7.6-11.3); RBC Red Blood Cell Count 4.63 M/uL (3.86-4.86)
[2019-09-25 11:08] LABS: Urine Appearance CLOUDY; Urine Bilirubin NEGATIVE (NEG); Urine Blood 3+ (NEG); Urine Color YELLOW; Urine Glucose NEGATIVE (NEG); Urine Protein TRACE (NEG); Urine Specific Gravity 1.025 (1.005-1.030); Urine Urobilinogen 0.2 mg/dL (0.2-1.0); Urine pH 5.5 (5.0-7.0)
[2019-09-25 11:37] LABS: Urine Microscopic Reflex ORDER UMIC
[2019-09-25 11:42] LABS: Urine Bacteria NONE SEEN /HPF (<20); Urine RBC >50 /HPF (NONE SEEN); Urine Urothelial Cells <5 /HPF (NONE SEEN)
[2019-09-28] MEDS ORDERED: SCOPOLAMINE HYDROBROMIDE PATCH TD ONE (09:44)
[2019-09-28] MEDS ORDERED: CEFAZOLIN/SWI 1gm 1 GM/10 ML SYR ONE (09:44)
[2019-09-28] MEDS ORDERED: NA CHLORIDE 0.9% 1,000 ML ONE ×2 (09:44→12:40)
[2019-09-28] MEDS ORDERED: BUPIVACAINE 0.25% PF 30 ML VIAL ONE (10:40)
[2019-09-28] MEDS ORDERED: ROCURONIUM 50 MG/5 ML VIAL IV ONE ×2 (10:57→12:17)
[2019-09-28] MEDS ORDERED: propofoL 200 MG/20 ML VIAL IV ONE (10:57)
[2019-09-28] MEDS ORDERED: GLYCOPYRROLATE 0.2 MG/ML SYR ONE (10:58)
[2019-09-28] MEDS ORDERED: LIDOCAINE 2% MPF 5 ML VIAL ONE (10:59)
[2019-09-28] MEDS ORDERED: FENTANYL CITR 250 MCG/5 ML ONE (10:59)
[2019-09-28] MEDS ORDERED: dexAMETHasone 10 MG/ML VIAL ONE (10:59)
[2019-09-28] MEDS ORDERED: ONDANSETRON 4 MG/2 ML VIAL ONE ×2 (11:00→14:11)
[2019-09-28] MEDS ORDERED: MIDAZOLAM HCL 2 MG/2 ML INJ ONE (11:06)
[2019-09-28] MEDS: CEFAZOLIN/SWI 2gm 2 GM/20 ML SYR ONE ×2 (11:41→11:42)
[2019-09-28] MEDS ORDERED: Phenylephrine HCl 10 MG/ML 1 ML VIAL ONE (12:21)
[2019-09-28] MEDS ORDERED: NS 0.9% VIAL 20 ML ONE (12:22)
[2019-09-28] MEDS ORDERED: NS 0.9% VIAL 10 ML ONE (12:39)
[2019-09-28] MEDS ORDERED: EPHEDRINE SULF 50 MG/ML VIAL ONE (12:39)
[2019-09-28] MEDS ORDERED: KETOROLAC 30 MG/ML INJ ONE (13:19)
[2019-09-28] MEDS ORDERED: NEOSTIGMINE 1 MG/ML -5 ML ONE (13:27)
[2019-09-28] MEDS: HYDROMORPHONE HCL 1 MG/ML INJ ONE ×2 (14:05→14:10)
[2019-09-28] MEDS ORDERED: CODEINE 30MG/APAP 300MG TAB ONE (15:26)
[2019-09-28 15:27] VITALS: O2SAT 97
[2019-09-28 16:24] VITALS: BP 116/62; TEMP 99
--- NOTE | 2019-09-28 21:59 | OP ---
Date of Procedure: 09/28/2019 Surgeon: Jenna Sheikh MD Center Punch Operator: Mariana Abreu. Preoperative Diagnoses: Pelvic pain and thickened endometrium which was evaluated already and negati ve for atypia, polycystic ovarian syndrome, and deep dyspareunia. Postoperative Diagnoses: Pelvic pain and thickened endometrium which was evaluated already and negat bailee for atypia, polycystic ovarian syndrome, deep dyspareunia, endometriosis, and adhesions. Procedures Performed: Diagnostic laparoscopy, lysis of omental adhesions which took at least 50% of the case, then bilateral salpingectomy, and endometriosis excision. Estimated Blood Loss: Minimal. Complications: None. Drains: None. Specimens: Bilateral tubes and endometriosis from the right lateral posterior broad ligament and lef t lateral posterior broad ligament and anterior left cul-de-sac. Condition: Stable. Endometriosis was seen in the posterior broad ligament on both sides. The right nodule was thick and superior and lateral to the ureter and on the left side, pretty close to the uterosacral ligament, b ut superior to the ureteric tunnel. The anterior cul-de-sac, questionable lesion there were lots of adhesions here which had to be also t aken down before I could see this and there were other adhesions and mass in the anterior cul-de-sac, which could have other endometriotic implants. Patient also had 4 cm leiomyoma that was intramural extending into the subserosal area in the left an terior wall of the cornual end of the fundus just above the attachment of the round ligament. There were adhesions of the omentum to the anterior abdominal wall, left inferior epigastric vessels, then to the bladder to the anterior wall of the uterus. All these had to be taken down in order for me to proceed with the procedure. Indications: Patient is a 39-year-old female with pelvic pain. Polycystic ovarian syndrome, but goode s not have any heavy periods complaining of dyspareunia evaluated with transvaginal ultrasound. Endo metrium also evaluated with endometrial sampling and hysteroscopy. No atypia or malignancy was seen. Her FSH was 33 likely getting into premature menopause. For treatment of pelvic pain, we discussed the options of medical treatment, surgical treatment with diagnostic laparoscopy, endo treatment. Patient decided to have a hysterectomy for treatment of the pain, but I explained that in the absence of bleeding when patients have pelvic pain with no known et iology or determined etiology, there is only a 2/3 chance that the pain would resolve and 1/3 that th e pain would stay the same, and 5% the pain would worsen. After understanding all this, patient cons ented for a diagnostic laparoscopy, possible endometriosis excision, and then if the pain was persist ent or worse with the known gynecological diagnosis, then we would proceed with a hysterectomy. Renée ent has a history of 3 sections. No scar area pain or palpable nodules representat bailee of scar endometriosis. Description Of Procedure: After informed consent was verified, patient was taken back to OR, placed in supine fashion on the operating table. Ancef was given in preparation for the surgery. Patient w as put under general anesthesia, placed in dorsal lithotomy position using Raúl stirrups. Both arms were tucked by the side. Time-out done. Abdomen, vulva, vagina, and perineum prepped and draped in a sterile fashion. Hathaway placed to drain the bladder. Uterine manipulator placed for manipulation and this area was draped. 1 cm supraumbilical incision was made with a scalpel using the open laparo scopy technique. Fascia incised with a scalpel, tagged with 3-0 Vicryl sutures on both edges. Perit oneum entered sharply with scissors. S-retractors were placed, Jasper introduced, site of entry chec ked after insufflation was complete. No evidence of any injury. Inferior to the umbilicus there wer e adhesions all the way from the midline to the left lower quadrant and there were adhesions on top o f the uterus, so none of these could be visualized. On inspecting the upper peritoneal surfaces and the upper abdomen, no endometriotic implants were seen. Patient was placed in Trendelenburg position. A 5 right lower quadrant port was placed initially. T his was the only area that was free of adhesions. LigaSure was taken to take down the adhesions from the midline systematically it from the anterior abdominal wall going towards the left low er quadrant. After all the adhesions were taken down with push-spread technique creating windows the inferior epigastric vessels were bleeding, because of this the omental adhesions were attached in th is area, so these were cauterized and excellent hemostasis was secured. Then patient was placed in T rendelenburg, a 5 left lower quadrant port and a left upper quadrant port were placed in the midaxill bonilla line. The omental adhesions were taken down from the level of the bladder. Once they were , then they were taken off the anterior wall of the uterus. They were adhered all the way to the fundus. O nce these were taken down systematically, then the entire uterus was mobile and could be visualized. Both ovaries were unremarkable. Both tubes had evidence of tubal ligation, but there were dilated p aratubal cysts in the distal part of the tubal segment. Then endometriosis was noted as a nodular im plant on the right and 2 small implants on the left. They were not infiltrated whereas the lesion on the right was a deep infiltrative lesion. After tracing the courses of the ureters on both sides from the pelvic brim to the ureteric tunnel, t hen the dissection for the endometriosis was started. Separate open the peritoneum between the urete r and the implant with the help of the cutting mode of the LigaSure, then dissection was performed wi th the tip of the Dora and the entire lesion was excised from its base as well until normal fat wa s visualized. This was handed out similarly on the left side, the ureter was from the noelle toneum and the peritoneum opened up between the ureter and the implant. Then, the rest of the perito chester implants were excised with the help of the LigaSure mostly with the cutting mode after slight bi polar cautery. This implant was handed off for permanent pathology as well, then on the left side an terior cul-de-sac there was a suspicious implant that was also removed. Hemostasis had to be secured on top of the serosal aspect of the uterus. After everything was hemostatic, the tubes were removed , the distal part in the left and then the proximal part, same thing on the right side. All these sp ecimens were removed through the umbilical port after using a 5 camera through the left upper quadran t port. Thorough irrigation and suction were performed and hemostasis was ensured. The gas was desu fflated. All the ports were removed. All the ports were injected at the onset and at the with 0.25% Marcaine and once the gas was desufflated umbilical fascial incision closed with the help of 0 Vicry l tag sutures, tied to each other. Then skin incisions closed with the help of 4-0 Vicryl after the subcutaneous tissue was brought with 3-0 chromic. Instrument, needle, and sponge counts were correct at the end of case. VCare and Hathaway were removed. The patient was recovered from anesthesia and ta wilbur to PACU in stable condition. PEARL/SHARAN Voice ID: [id number] Report ID: [id number]
== END 2019-09-28 16:20 | disposition home or self-care (01) ==
LOC: OR 09:02
PROVIDERS: ATTEND Obstetrics & Gynecology
PROC: 0UBF4ZZ Excision of Cul-de-sac, Percutaneous Endoscopic Approach (ICD-10-PCS; 2019-09-28)
PROC: 0DNU4ZZ Release Omentum, Percutaneous Endoscopic Approach (ICD-10-PCS; 2019-09-28)
PROC: 0UT74ZZ Resection of Bilateral Fallopian Tubes, Percutaneous Endoscopic Approach (ICD-10-PCS; 2019-09-28)
PROC: 0UB44ZZ Excision of Uterine Supporting Structure, Percutaneous Endoscopic Approach (ICD-10-PCS; principal; 2019-09-28 11:00)
DX: N80.3 Endometriosis of pelvic peritoneum (principal); K66.0 Peritoneal adhesions (postprocedural) (postinfection); N94.12 Deep dyspareunia; E28.2 Polycystic ovarian syndrome; N85.00 Endometrial hyperplasia, unspecified; N83.8 Other noninflammatory disorders of ovary, fallopian tube and broad ligament; D21.9 Benign neoplasm of connective and other soft tissue, unspecified; E11.9 Type 2 diabetes mellitus without complications; I10 Essential (primary) hypertension; K21.9 Gastro-esophageal reflux disease without esophagitis; G47.33 Obstructive sleep apnea (adult) (pediatric); E78.00 Pure hypercholesterolemia, unspecified; Z90.710 Acquired absence of both cervix and uterus; Z90.49 Acquired absence of other specified parts of digestive tract; Z83.3 Family history of diabetes mellitus; Z82.49 Family history of ischemic heart disease and other diseases of the circulatory system; Z82.3 Family history of stroke
CPT/HCPCS: 85025; 36415; 86900; 86850; 81025; 86901; 82947; 88305 ×2; 58662; 49329; 58661; J2704; J2370; J2250; J3010; J1100; J1170; J2710; J0690 ×2; J7030 ×2; J2405 ×2; 81003; 81015; 88302; 88307

== ENCOUNTER 2020-12-09 08:09 | Observation (INO) | payer BC, OTHER ==
--- OUTSIDE RECORDS SUMMARY | 2020-12-09 08:12 | XMS REPORT | Continuity of Care Document ---
:1980 Author Organization [facility] t Address [address] [place] [address] Care Team Providers Name Role Phone Luz DUFF M Attending Clinician Therapy, Covid Infusion Attending Clinician Unavailable Doctor Unassigned, Name Attending Clinician Unavailable Gunner HUSTON Attending Clinician Problems This patient has no known problems. Allergies, Adverse Reactions, Alerts This patient has no known allergies or adverse reactions. Medications This patient has no known medications. Procedures This patient has no known procedures. Encounters Start End Encounter Admission Attending Care Care Encounter Source Date/Time Date/Time Type Type Clinicians Facility Department ID 2020-08-14 2020-08-14 Transition Hansel Escobar [id number] 00:00:00 00:00:00 of Care [facility] P[facility] [id number] [place] [id number] 2020-08-02 2020-08-02 Nurse Therapy, [facility] [place] [id number] 07:34:01 09:04:01 Visit [facility] Covid SPECIALTY [id number] Infusion CARE [id number] CENTER AT [id number] LEATHA Sung3 [facility] 2020-07-30 2020-07-30 Orders Doctor PRAVEENA [id number] 00:00:00 00:00:00 Only Unassigned, EURE [id number] [place] [facility] [id number] 2020-07-29 2020-07-29 [place]gent [place], [facility] [place] [id number] 18:12:39 18:32:39 Care [facility] [id number] [place] [id number] [facility] [phone] [place] [address] [address] One Results This patient has no known results.
[2020-12-09] MEDS ORDERED: ASPIRIN 81 MG CHEWABLE TABLET ONE (08:53)
[2020-12-09] MEDS ORDERED: FAMOTIDINE 20 MG/2 ML VIAL IV ONE (08:53)
[2020-12-09 08:57] LABS: Absolute Lymphocytes (CBC) 2.3 K/uL (0.7-4.9); Basophils % 0.6 % (0-1.3); Hematocrit 38.7 % (36.0-45.0); Lymphocytes % 17.6 % (15.3-44.8); MPV 8.1 fL (7.6-11.3); RBC Red Blood Cell Count 4.39 M/uL (3.86-4.86)
[2020-12-09 09:00] LABS: Protime INR 1.05
[2020-12-09 09:07] LABS: Urine Blood 1+ (Negative); Urine Glucose Negative (Negative); Urine Protein 1+ (Negative); Urine Specific Gravity 1.025 (1.005-1.030)
[2020-12-09 09:16] LABS: ALT/SGPT 39 U/L (12-78); AST/SGOT 26 U/L (15-37); Albumin 3.6 g/dL (3.4-5.0); Alkaline Phosphatase 73 U/L (45-117); BUN Blood Urea Nitrogen 11 mg/dL (7-18); Bicarbonate 27 mmol/L (21-32); Bilirubin Direct < 0.1 mg/dL (0-0.2); Bilirubin Total 0.4 mg/dL (0.2-1.0); Glucose Level 124 mg/dL (74-106); Lipase 127 U/L (73-393); Magnesium 1.9 mg/dL (1.8-2.4); NT PRO-BNP 14 pg/mL (<125); Potassium 4.1 mmol/L (3.5-5.1); Protein, Total 7.5 g/dL (6.4-8.2); Sodium Level 141 mmol/L (136-145); Troponin (Emerg Dept Use Only) 0.02 ng/mL (0.0-0.045)
[2020-12-09 09:17] LABS: Urine Specific Gravity/Preg 1.025 (1.005-1.030)
--- NOTE | 2020-12-09 11:16 | RAD REPORT ---
EXAM DESCRIPTION: RAD - Chest Single View - 12/09/2020 9:41 am CLINICAL HISTORY: CHEST PAIN COMPARISON: Portable December 2018 TECHNIQUE: AP portable chest image was obtained 12/09/2020 9:41 am . FINDINGS: Lung volumes are low. No peripheral mass or consolidation. Mild interstitial edema or infi ltrate can be masked by the low lung volumes. Heart and vasculature are normal. No measurable pleural effusion and no pneumothorax. No acute bony abnormality seen. No acute aortic findings suspected. IMPRESSION: No acute cardiopulmonary process. Mild interstitial edema or infiltrate could potentially be masked by the low lung volumes.
--- NOTE | 2020-12-09 12:12 | EDPHYS ---
Physician Documentation [facility] Name: Celina Meeks Age: 40 yrs Sex: Female : 1980 Arrival Date: 12/09/2020 Time: 08:11 Bed 16 Private MD: Gabriel Shoemaker B ED Physician Tristian Cooper HPI: 12/09 12:04 This 40 yrs old Female presents to ER via Ambulatory with complaints of favian Epigastric Pain, Numbness Of Arm. 12:04 The patient presents with abdominal pain in the epigastric area, in the upper abdomen, favian abdominal distention in the epigastric area, in the upper abdomen. Onset: The symptoms/episode began/occurred 1 day(s) ago. The symptoms do not radiate. Associated signs and symptoms: Pertinent positives: nausea. The symptoms are described as constant, crampy. Modifying factors: The symptoms are alleviated by nothing, the symptoms are aggravated by food, pressure. Severity of pain: At its worst the pain was moderate in the emergency department the pain is unchanged. The patient has not experienced similar symptoms in the past. Historical: - Allergies: 08:21 No Known Allergies; ll1 - PMHx: 08:21 Diabetes - NIDDM; Hyperlipidemia; Hypertension; Ovarian cysts; ll1 - PSHx: 08:21 ; Cholecystectomy; Tubal ligation; ll1 - Immunization history:: Flu vaccine is not up to date. - Social history:: Smoking status: Patient denies any tobacco usage or history of. - Family history:: not pertinent. ROS: 12:04 Constitutional: Negative for fever, chills, and weight loss, Eyes: Negative for injury, favian pain, redness, and discharge, ENT: Negative for injury, pain, and discharge, Neck: Negative for injury, pain, and swelling, Cardiovascular: Negative for chest pain, palpitations, and edema, Respiratory: Negative for shortness of breath, cough, wheezing, and pleuritic chest pain, Back: Negative for injury and pain, : Negative for injury, bleeding, discharge, and swelling, MS/Extremity: Negative for injury and deformity, Skin: Negative for injury, rash, and discoloration, Neuro: Negative for headache, weakness, numbness, tingling, and seizure, Psych: Negative for depression, anxiety, suicide ideation, homicidal ideation, and hallucinations, Allergy/Immunology: Negative for hives, rash, and allergies, Endocrine: Negative for neck swelling, polydipsia, polyuria, polyphagia, and marked weight changes, Hematologic/Lymphatic: Negative for swollen nodes, abnormal bleeding, and unusual bruising. 12:04 Abdomen/GI: Positive for abdominal pain, of the epigastric area, right upper quadrant and left upper quadrant. Exam: 12:04 Constitutional: This is a well developed, well nourished patient who is awake, alert, favian and in no acute distress. Head/Face: Normocephalic, atraumatic. Eyes: Pupils equal round and reactive to light, extra-ocular motions intact. Lids and lashes normal. Conjunctiva and sclera are non-icteric and not injected. Cornea within normal limits. Periorbital areas with no swelling, redness, or edema. ENT: Nares patent. No nasal discharge, no septal abnormalities noted. Tympanic membranes are normal and external auditory canals are clear. Oropharynx with no redness, swelling, or masses, exudates, or evidence of obstruction, uvula midline. Mucous membranes moist. Neck: Trachea midline, no thyromegaly or masses palpated, and no cervical lymphadenopathy. Supple, full range of motion without nuchal rigidity, or vertebral point tenderness. No Meningismus. Chest/axilla: Normal chest wall appearance and motion. Nontender with no deformity. No lesions are appreciated. Cardiovascular: Regular rate and rhythm with a normal S1 and S2. No gallops, murmurs, or rubs. Normal PMI, no JVD. No pulse deficits. Respiratory: Lungs have equal breath sounds bilaterally, clear to auscultation and percussion. No rales, rhonchi or wheezes noted. No increased work of breathing, no retractions or nasal flaring. Back: No spinal tenderness. No costovertebral tenderness. Full range of motion. Skin: Warm, dry with normal turgor. Normal color with no rashes, no lesions, and no evidence of cellulitis. MS/ Extremity: Pulses equal, no cyanosis. Neurovascular intact. Full, normal range of motion. Neuro: Awake and alert, GCS 15, oriented to person, place, time, and situation. Cranial nerves II-XII grossly intact. Motor strength 5/5 in all extremities. Sensory grossly intact. Cerebellar exam normal. Normal gait. Psych: Awake, alert, with orientation to person, place and time. Behavior, mood, and affect are within normal limits. 12:04 Respiratory: the patient does not display signs of respiratory distress, Respirations: normal, Breath sounds: are clear throughout. 12:04 Abdomen/GI: Inspection: distension, Bowel sounds: active, Palpation: moderate abdominal tenderness, in the epigastric area, right upper quadrant and left upper quadrant, Liver: no appreciated palpable abnormalities, Hernia: not appreciated. 12:08 ECG was reviewed by the Attending Physician. favian Vital Signs: 08:21 BP 138 / 76; Pulse 88; Resp 16; Temp 97.6; Pulse Ox 99% ; Weight 90.72 kg; Height 4 ft. ll1 11 in. (149.86 cm); Pain 10/10; 08:53 BP 124 / 73 RA Sitting (auto/); tr6 08:53 BP 135 / 68 LA (auto/); tr6 09:38 BP 121 / 60; Pulse 79; Resp 18; Pulse Ox 96% on R/A; tr6 10:26 BP 125 / 52; Pulse 78; Resp 18; Pulse Ox 97% on R/A; tr6 11:24 BP 126 / 68; Pulse 86; Resp 18; Pulse Ox 99% on R/A; tr6 12:00 BP 136 / 71; Pulse 80; Resp 16; Pulse Ox 97% on R/A; tr6 08:21 Body Mass Index 40.39 (90.72 kg, 149.86 cm) ll1 MDM: 08:27 Patient medically screened. favian 12:07 Differential diagnosis: acute coronary syndrome, coronary artery disease, favian diverticulitis, gastritis, GI Bleed, Hepatitis, Menorrhagia, non-specific abd pain, Peptic Ulcer Disease, Perf. Duodenal Ulcer, Peritonitis, Pyelonephritis, Ureterolithiasis, urinary tract infection. Data reviewed: vital signs, nurses notes, lab test result(s), EKG, radiologic studies, CT scan, plain films. Data interpreted: patient monitor: rate is 80 beats/min, rhythm is regular, Pulse oximetry: on room air is 97 %. Test interpretation: by ED physician or midlevel provider: ECG, plain radiologic studies. Counseling: I had a detailed discussion with the patient and/or guardian regarding: the historical points, exam findings, and any diagnostic results supporting the discharge/admit diagnosis, lab results, radiology results. 12/09 08:29 Order name: Basic Metabolic Panel; Complete Time: 12:03 [facility] 12/09 08:29 Order name: CBC with Diff; Complete Time: 12:03 [facility] 12/09 08:29 Order name: LFT's; Complete Time: 12:03 [facility] 12/09 08:29 Order name: Magnesium; Complete Time: 12:03 [facility] 12/09 08:29 Order name: NT PRO-BNP; Complete Time: 12:03 [facility] 12/09 08:29 Order name: PT-INR; Complete Time: 12:03 [facility] 12/09 08:29 Order name: Troponin (emerg Dept Use Only); Complete Time: 12:03 [facility] 12/09 08:29 Order name: Lipase; Complete Time: 12:03 [facility] 12/09 09:07 Order name: Urine Dipstick-Ancillary; Complete Time: 12:03 [facility] 12/09 09:12 Order name: Urine --Ancillary (enter results); Complete Time: 12:03 12/09 13:03 Order name: NT PRO-BNP [facility] 12/09 13:03 Order name: Blood Culture [facility] 12/09 13:03 Order name: T4 Free [facility] 12/09 13:03 Order name: Troponin I [facility] 12/09 08:29 Order name: XRAY Chest (1 view); Complete Time: 12:03 [facility] 12/09 08:29 Order name: EKG; Complete Time: 08:29 [facility] 12/09 08:29 Order name: Cardiac monitoring; Complete Time: 08:43 [facility] 12/09 08:29 Order name: EKG - Nurse/Tech; Complete Time: 08:43 [facility] 12/09 08:29 Order name: IV Saline Lock; Complete Time: 08:43 [facility] 12/09 08:29 Order name: Labs collected and sent; Complete Time: 08:43 [facility] 12/09 12:00 Order name: CT Abd/Pelvis - IV Contrast Only; Complete Time: 13:19 [facility] 12/09 13:03 Order name: Troponin I [facility] 12/09 13:03 Order name: Consistent Carb (ADA) 2000 Miko [facility] 12/09 13:03 Order name: Thyroid Stimulating Hormone [facility] 12/09 14:13 Order name: COVID-19 : Document "Date of Symptom Onset" if Symptomatic. 12/09 14:48 Order name: CORONAVIRUS [facility] 12/09 15:35 Order name: SARS-COV-2 RT PCR [facility] 12/09 08:29 Order name: O2 Per Protocol; Complete Time: 08:43 [facility] 12/09 08:29 Order name: O2 Sat Monitoring; Complete Time: 08:43 [facility] 12/09 08:29 Order name: Urine Dipstick-Ancillary (obtain specimen); Complete Time: 09: [facility] 12/09 08:29 Order name: Urine Test (obtain specimen); Complete Time: 09: [facility] EC:08 Rate is 80 beats/min. Rhythm is regular. QRS [place] is Normal. SC interval is normal. QRS favian interval is normal. QT interval is normal. No Q waves. T waves are Normal. No ST changes noted. Clinical impression: Normal ECG, LVH, and No evidence of ischemia. Interpreted by me. Reviewed by me. Administered Medications: 08:41 Drug: Pepcid (famotidine) 20 mg Route: IVP; Site: left antecubital; tr6 08:42 Drug: NS 0.9% 1000 ml Route: IV; Rate: 125 ml/hr; Site: left antecubital; tr6 08:42 Drug: Aspirin Chewable Tablet 324 mg Route: PO; tr6 Disposition: 12/09/20 12:11 Hospitalization ordered by Dilip Escobar for Observation. Preliminary diagnosis are Abdominal tenderness, Chest pain, unspecified, Type 2 diabetes mellitus, Obesity, unspecified. - Bed requested for Telemetry/MedSurg (observation). - Status is Observation. tr6 - Condition is Stable. - Problem is new. - Symptoms have improved. Signatures: Dispatcher [employer] [facility] Tamar Vera Tristian Cooper MD MD cha Lewis, Lynsay, RN RN ll1 Divya Hodge RN RN tr6 Corrections: (The following items were deleted from the chart) 15:43 12:11 Hospitalization Ordered by Dilip Escobar DO for Observation. Preliminary bd diagnosis is Abdominal tenderness; Chest pain, unspecified; Type 2 diabetes mellitus; Obesity, unspecified. Bed requested for Telemetry/MedSurg (observation). Status is Observation. Condition is Stable. Problem is new. Symptoms have improved. [facility] 16:37 15:43 12/09/2020 12:11 Hospitalization Ordered by Dilip Escobar DO for Observation. tr6 Preliminary diagnosis is Abdominal tenderness; Chest pain, unspecified; Type 2 diabetes mellitus; Obesity, unspecified. Bed requested for Telemetry/MedSurg (observation). Status is Observation. Condition is Stable. Problem is new. Symptoms have improved. bd
--- NOTE | 2020-12-09 12:12 | ER ---
Nurse's Notes [facility] Name: Celina Meeks Age: 40 yrs Sex: Female : 1980 Arrival Date: 12/09/2020 Time: 08:11 Bed 16 Private MD: Gabriel Shoemaker B Diagnosis: Abdominal tenderness;Chest pain, unspecified;Type 2 diabetes mellitus;Obesity, unspecified Presentation: 12/09 08:21 Coronavirus screen: Client denies travel out of the [place] in the last 14 days. At this ll1 time, the client does not indicate any symptoms associated with coronavirus-19. Ebola Screen: Patient denies travel to an Ebola-affected area in the 21 days before illness onset. Initial Sepsis Screen: Does the patient meet any 2 criteria? No. Patient's initial sepsis screen is negative. Does the patient have a suspected source of infection? Yes: Acute abdominal pain. Risk Assessment: Do you want to hurt yourself or someone else? Patient reports no desire to harm self or others. Onset of symptoms was December 08, 2020. 08:21 Method Of Arrival: Ambulatory ll1 08:21 Acuity: HAY 3 ll1 08:26 Chief complaint: Patient states: Epigastric pain with nausea since last night. No known ll1 fever. Historical: - Allergies: 08:21 No Known Allergies; ll1 - PMHx: 08:21 Diabetes - NIDDM; Hyperlipidemia; Hypertension; Ovarian cysts; ll1 - PSHx: 08:21 ; Cholecystectomy; Tubal ligation; ll1 - Immunization history:: Flu vaccine is not up to date. - Social history:: Smoking status: Patient denies any tobacco usage or history of. - Family history:: not pertinent. Screenin:11 Abuse screen: Denies threats or abuse. Denies injuries from another. Nutritional tr6 screening: No deficits noted. Tuberculosis screening: No symptoms or risk factors identified. Fall Risk None identified. Assessment: 09:10 General: Appears in no apparent distress. comfortable, Behavior is calm, cooperative, tr6 appropriate for age. Pain: Complains of pain in c/o epigastric pain, upper back pain, and chest pain radiating down right arm beginning last night. Neuro: No deficits noted. Cardiovascular: Reports chest pain, Heart tones S1 S2 JVD is absent Patient's skin is warm and dry. Rhythm is sinus rhythm Chest pain radiates to right arm(s). Respiratory: No deficits noted. GI: Abdomen is round Bowel sounds present X 4 quads. : No deficits noted. EENT: No deficits noted. Derm: No deficits noted. Musculoskeletal: No deficits noted. Vital Signs: 08:21 BP 138 / 76; Pulse 88; Resp 16; Temp 97.6; Pulse Ox 99% ; Weight 90.72 kg; Height 4 ft. ll1 11 in. (149.86 cm); Pain 10/10; 08:53 BP 124 / 73 RA Sitting (auto/); tr6 08:53 BP 135 / 68 LA (auto/); tr6 09:38 BP 121 / 60; Pulse 79; Resp 18; Pulse Ox 96% on R/A; tr6 10:26 BP 125 / 52; Pulse 78; Resp 18; Pulse Ox 97% on R/A; tr6 11:24 BP 126 / 68; Pulse 86; Resp 18; Pulse Ox 99% on R/A; tr6 12:00 BP 136 / 71; Pulse 80; Resp 16; Pulse Ox 97% on R/A; tr6 08:21 Body Mass Index 40.39 (90.72 kg, 149.86 cm) ll1 ED Course: 08:11 Patient arrived in ED. as 08:12 Gabriel Shoemaker MD is Private Physician. as 08:20 Arm band placed on Patient placed in an exam room, on a stretcher. ll1 08:23 Triage completed. ll1 08:24 Divya Hodge, SHERIN is Primary Nurse. tr6 08:27 Tristian Cooper MD is Attending Physician. favian 08:46 EKG done, by ED staff, reviewed by Tristian Cooper MD. jl7 08:56 EKG done, by ED staff, reviewed by Tristian Cooper MD. mh5 08:57 Patient has correct armband on for positive identification. Bed in low position. Call mh5 light in reach. Side rails up X 1. Adult w/ patient. Warm blanket given. soap inspector on. Pulse ox on. NIBP on. 09:07 Urine collected: clean catch specimen, cloudy. mh5 09:12 No provider procedures requiring assistance completed. Inserted saline lock: 18 gauge tr6 in left antecubital area, using aseptic technique. Blood collected. 09:41 XRAY Chest (1 view) In Process Unspecified. EDMS 12:09 Dilip Escobar DO is Hospitalizing Provider. [facility] 12:35 CT Abd/Pelvis - IV Contrast Only In Process Unspecified. EDMS Administered Medications: 08:41 Drug: Pepcid (famotidine) 20 mg Route: IVP; Site: left antecubital; tr6 08:42 Drug: NS 0.9% 1000 ml Route: IV; Rate: 125 ml/hr; Site: left antecubital; tr6 08:42 Drug: Aspirin Chewable Tablet 324 mg Route: PO; tr6 Outcome: 12:11 Decision to Hospitalize by Provider. [facility] 16:35 Admitted to Med/surg accompanied by tech, via wheelchair, room 415, with chart, Report tr6 called to aranza 16:35 Condition: stable 16:35 Instructed on the need for admit, Demonstrated understanding of instructions, follow-up care. 16:37 Patient left the ED. tr6 Signatures: Dispatcher [employer] EDMS Tristian Cooper MD MD cha Martinez, Amelia as Martinez, Maria [facility] Deon Fuentes, RN RN jl7 Adalgisa Quiñonez, SHERIN RN ll1 Divya Hodge, SHERIN RN tr6
--- NOTE | 2020-12-09 12:44 | RAD REPORT ---
EXAM DESCRIPTION: CTAbdomen Pelvis W Contrast - 12/09/2020 12:35 pm CLINICAL HISTORY: Abdominal pain. ABD PAIN COMPARISON: Abdomen Pelvis W Contrast dated 12/22/2018 TECHNIQUE: Biphasic CT imaging of the abdomen and pelvis was performed with 100 ml non-ionic IV cont rast. All CT scans are performed using dose optimization technique as appropriate and may include automated exposure control or mA/KV adjustment according to patient size. FINDINGS: The lung bases are clear. The liver demonstrates diffuse fatty infiltration. The spleen, pancreas, adrenal glands and kidneys a re within normal limits. Cholecystectomy clips. No bowel obstruction, free air, free fluid or abscess. Small fat containing umbilical hernia. Mild si gmoid diverticulosis in the left lower quadrant. The appendix is normal. No evidence of significant lymphadenopathy. No suspicious bony findings. IMPRESSION: Mild diffuse fatty liver. Small fat containing umbilical hernia. Mild sigmoid diverticulosis without diverticulitis.
[2020-12-09] MEDS ORDERED: LABETALOL 20 MG/4ML SYRINGE IV PRN (12:57)
[2020-12-09] MEDS ORDERED: ACETAMINOPHEN 500 MG TAB PO PRN (12:57)
[2020-12-09] MEDS ORDERED: ALBUTEROL 2.5 MG/3 ML NEB SOL NEB PRN (12:57)
[2020-12-09] MEDS ORDERED: ONDANSETRON 4 MG/2 ML VIAL IV PRN (12:57)
--- NOTE | 2020-12-09 13:07 | P.HP ---
Certification for Inpatient Patient admitted to: Observation With expected LOS: <2 Midnights Patient will require the following post-hospital care: None Practitioner: I am a practitioner with admitting privileges, knowledge of patient current condition, hospital course, and medical plan of care. Services: Services provided to patient in accordance with Admission requirements found in Title 42 Section 412.3 of the Code of Federal Regulations Patient History Date of Service: 12/09/20 Reason for admission: Epigastric pain, Chest pain r\o History of Present Illness: Patient is a 40-year-old female with a past medical history significant for hypertension, DM 2, HLD, GERD who presents with complaint of epigastric pain onset yesterday. Patient reports that epigastric pain radiates to her substernal chest area, her right arm and upper back. Patient also reports that she has been having upper back pain located between her shoulder blades for the past 1 week. Patient denies any trauma or fall. Patient rated back pain as 9\10 in severity and described pain as aching in quality. Patient indicated that chest pain\epigastric pain is rated as 10/10 in severity and described as cramping\throbbing in quality. Patient indicated that chest\epigastric pain has been intermittent. Patient reports associated signs and symptoms of nausea, chills, diaphoresis, palpitations and right arm numbness\tingling. Patient denies any other signs and symptoms. Symptoms are aggravated or relieved by nothing. Patient decided to present to the hospital due to worsening symptoms. Allergies No Known Allergies Allergy (Verified 09/25/19 10:33) Home medications list reviewed: No Home Medications: Candesartan Cilexetil [Atacand] 16 mg PO BEDTIME 12/22/18 Metformin HCl [Glucophage*] 500 mg PO BIDWM 12/22/18 Rosuvastatin Calcium 10 mg PO BEDTIME 12/22/18 - Past Medical/Surgical History Diabetic: Yes -: Diabetes mellitus type 2 -: Hypertension -: Hyperlipidemia -: Obesity -: Tubal ligation -: -: Cholecystectomy Psychosocial/ Personal History: The patient is . She has 3 children. 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 - Family History Father -: Heart disease, Diabetes Mother -: Heart disease, Hypertension, Diabetes, Stroke - Social History Smoking Status: Never smoker Alcohol use: No CD- Drugs: No Caffeine use: Yes Review of Systems General: Chills, Other (Diaphoresis ) Eyes: Unremarkable ENT: Unremarkable Cardiovascular: Chest Pain, Palpitations Gastrointestinal: Nausea, Abdominal Pain Genitourinary: Unremarkable Musculoskeletal: Shoulder Pain, Back Pain Integumentary: Unremarkable Neurological: Unremarkable Lymphatics: Unremarkable Physical Examination - Physical Exam General: Alert, In no apparent distress, Oriented x3 HEENT: Atraumatic, PERRLA, Mucous membr. moist/pink, EOMI, Sclerae nonicteric Neck: Supple, 2+ carotid pulse no bruit, No LAD, Without JVD or thyroid abnormality Respiratory: Clear to auscultation bilaterally, Normal air movement Cardiovascular: No edema, Regular rate/rhythm, Normal S1 S2 Capillary refill: Brisk Gastrointestinal: Normal bowel sounds, No tenderness Musculoskeletal: No clubbing, No swelling, No tenderness Integumentary: No rashes, No significant lesion Neurological: Normal gait, Normal speech, Normal strength at 5/5 x4 extr, Normal tone, Normal affect Lymphatics: No axilla or inguinal lymphadenopathy External genitalia: Deferred Rectal: Deferred - Studies Laboratory Data (last 24 hrs) 12/09/20 08:41: PT 12.1, INR 1.05 12/09/20 08:41: WBC 13.00 H, Hgb 12.9, Hct 38.7, Plt Count 368 12/09/20 08:41: Sodium 141, Potassium 4.1, BUN 11, Creatinine 0.61, Glucose 124 H, Magnesium 1.9, Total Bilirubin 0.4, AST 26, ALT 39, Alkaline Phosphatase 73, Lipase 127 Assessment and Plan - Plan --Epigastric pain. CT abdomen does not indicate any acute findings. Continue supportive care. --Chest pain. To rule out ACS. Will trend troponins. Cardiology consulted. Echocardiogram pending to assess wall motion, LV and Valvular functions. Telemetry to monitor for any significant arrhythmia. Further management per medical staffing coordinator. --Acute pain. Will manage pain with current pain medication regimen. --GERD. Patient placed on Protonix. --Hypertension. Stable. Continue home medications and labetalol p.r.n.. --Hyperlipidemia. Continue Statin . --Obesity. Likely secondary to excess calories intake. Patient counseled on diet and exercise therapy. --Fatty liver. Patient counseled on weight reduction-. --Leukocytosis. Likely reactive. Blood cultures pending to rule out other possible causes.. Will reassess levels in a.m. --DM 2. BS monitoring with sliding scale insulin. -- DVT prophylaxis with Lovenox subQ Discharge Plan: Home Plan to discharge in: 48 Hours - Advance Directives Does patient have a Living Will: No Does patient have a Durable POA for Healthcare: No - Code Status/Comfort Care Code Status Assessed: Yes Code Status: Full Code Critical Care: No
[2020-12-09] MEDS ORDERED: SODIUM CHLORIDE 0.9% 10ML INJ IV PRN (15:15)
[2020-12-09] MEDS: INSULIN -REGULAR HUMAN 50 UNIT/0.5 ML ML SQ SCH ×2 (16:30→21:00)
[2020-12-09 16:42] VITALS: BMI 40.4
[2020-12-09] MEDS: HYDROCODONE/APAP 5/325 MG TAB PO PRN ×2 (16:58→23:13)
[2020-12-09 20:52] LABS: Thyroid Stimulating Hormone 0.935 uIU/mL (0.360-3.740)
[2020-12-09] MEDS ORDERED: CANDESARTAN CILEXETIL 16 MG PO SCH (21:00)
[2020-12-09] MEDS ORDERED: ROSUVASTATIN 10 MG TAB PO SCH (21:00)
[2020-12-09 22:54] VITALS: O2SAT 98
[2020-12-10 03:25] LABS: Absolute Lymphocytes (CBC) 2.1 K/uL (0.7-4.9); Basophils % 0.4 % (0-1.3); Hematocrit 36.7 % (36.0-45.0); Lymphocytes % 19.5 % (15.3-44.8); RBC Red Blood Cell Count 4.13 M/uL (3.86-4.86)
[2020-12-10 03:42] LABS: BUN Blood Urea Nitrogen 8 mg/dL (7-18); Bicarbonate 31 mmol/L (21-32); Glucose Level 116 mg/dL (74-106); HDL Cholesterol 39 mg/dL (40-60); LDL Cholesterol, Calculated 52 (<130); Potassium 3.6 mmol/L (3.5-5.1); Sodium Level 143 mmol/L (136-145)
[2020-12-10] MEDS: INSULIN -REGULAR HUMAN 50 UNIT/0.5 ML ML SQ SCH (07:30)
--- NOTE | 2020-12-10 08:38 | P.DS ---
Admission Date: 12/09/20 Discharge Date: 12/10/20 Primary Care Provider: Dr. Shoemaker Disposition: ROUTINE DISCHARGE Discharge Condition: GOOD Reason for Admission: Epigastric pain, Chest pain r\o Consultations: none Procedures: COVID: Negative CXR: COMPARISON: Portable December 2018 TECHNIQUE: AP portable chest image was obtained 12/09/2020 9:41 am . FINDINGS: Lung volumes are low. No peripheral mass or consolidation. Mild interstitial edema or infiltrate can be masked by the low lung volumes. Heart and vasculature are normal. No measurable pleural effusion and no pneumothorax. No acute bony abnormality seen. No acute aortic findings suspected. IMPRESSION: No acute cardiopulmonary process. Mild interstitial edema or infiltrate could potentially be masked by the low lung volumes. CT scan: COMPARISON: Abdomen Pelvis W Contrast dated 12/22/2018 TECHNIQUE: Biphasic CT imaging of the abdomen and pelvis was performed with 100 ml non-ionic IV contrast. All CT scans are performed using dose optimization technique as appropriate and may include automated exposure control or mA/KV adjustment according to patient size. FINDINGS: The lung bases are clear. The liver demonstrates diffuse fatty infiltration. The spleen, pancreas, adrenal glands and kidneys are within normal limits. Cholecystectomy clips. No bowel obstruction, free air, free fluid or abscess. Small fat containing umbilical hernia. Mild sigmoid diverticulosis in the left lower quadrant. The appendix is normal. No evidence of significant lymphadenopathy. No suspicious bony findings. IMPRESSION: Mild diffuse fatty liver. Small fat containing umbilical hernia. Mild sigmoid diverticulosis without diverticulitis. Medical Problem List: Epigastric abdominal pain likely GERD Atypical chest pain Hypertension Mixed Hyperlipidemia Diabetes mellitus type 2 [id number] Fatty liver Obesity, BMI 40.4 Brief History of Present Illness: 40-year-old female with a past medical history significant for hypertension, DM 2, HLD, GERD who presents with complaint of epigastric pain onset yesterday. Patient reports that epigastric pain radiates to her substernal chest area, her right arm and upper back. Patient also reports that she has been having upper back pain located between her shoulder blades for the past 1 week. Patient denies any trauma or fall. Patient rated back pain as 9\10 in severity and described pain as aching in quality. Patient indicated that chest pain\epigastric pain is rated as 10/10 in severity and described as cramping\throbbing in quality. CT scan unremarkable. Initial cardiac enzymes unremarkable. The patient was admitted for observation. Hospital Course: Patient presented with epigastric and chest pain. Chest pain atypical. Patient was observed. Cardiac enzymes unremarkable. No significant EKG changes noted. Patient without significant pain. Suspect epigastric pain related to GERD. CT scan unremarkable. At discharge will recommend to continue Protonix 40 mg daily. Recommend to continue a GERD diet. Recommend to eliminate any acidic products or caffeine at this time. Due to her risk factors will recommend foll ow-up with cardiology as an outpatient to further evaluate. Patient would benefit with echocardiogram and cardiac stress test as an outpatient. If cardiac work-up unremarkable then the patient would also benefit with GI evaluation with EGD as an outpatient. Recommend follow-up with PCP in 1 week develops hospitalization to continue her care. Patient with hypertension. This is well controlled. At discharge she will continue with Atacand 16 mg daily. Recommend to maintain blood pressure less than 130/80. Further adjustment can be done by her PCP. Patient with mixed hyperlipidemia. Total triglycerides 260, total cholesterol 143, HDL 39, LDL 52. No need for adjustment in medication. At discharge she will continue with her current medications including Crestor 10 mg daily and Vascepa 1 g daily. Recommend follow-up with her PCP to further monitor and adjust medication. Patient with diabetes mellitus type 2. This is well controlled. Hemoglobin A1c 6.5. At discharge she will continue with her current medications of Glucophage 500 mg 1 pill twice daily and Ozempic as directed. Recommend to maintain blood sugars less than 140 fasting and less than 200 after meals. Further adjustment can be done by her PCP. Recommend to recheck hemoglobin A1c in 3 months to monitor her progress. CT scan revealed mild fatty liver. BMI 40.4. Lifestyle modification education provided. Education on fatty liver provided. Vital Signs/Physical Exam: Temp Pulse Resp BP Pulse Ox 96.9 F 97 H 18 129/70 97 12/10/20 04:00 12/10/20 04:00 12/10/20 04:00 12/10/20 04:00 12/10/20 04:00 General: Alert, In no apparent distress, Oriented x3, Cooperative HEENT: Atraumatic Neck: Supple Respiratory: Clear to auscultation bilaterally, Normal air movement Cardiovascular: Normal pulses, Regular rate/rhythm Gastrointestinal: Normal bowel sounds, Soft and benign, Non-distended, No tenderness, No masses, No rebound, No guarding Musculoskeletal: No erythema, No tenderness, No warmth Integumentary: No tenderness/swelling Neurological: Normal speech, Normal strength at 5/5 x4 extr, Normal tone, Normal affect Laboratory Data at Discharge: WBC 10.70 K/uL (4.3-10.9) D 12/10/20 02:49 Hgb 12.0 g/dL (12.0-15.0) 12/10/20 02:49 Hct 36.7 % (36.0-45.0) 12/10/20 02:49 Plt Count 294 K/uL (152-406) D 12/10/20 02:49 PT 12.1 SECONDS (9.5-12.5) 12/09/20 08:41 INR 1.05 12/09/20 08:41 Sodium 143 mmol/L (136-145) 12/10/20 02:49 Potassium 3.6 mmol/L (3.5-5.1) 12/10/20 02:49 BUN 8 mg/dL (7-18) 12/10/20 02:49 Creatinine 0.55 mg/dL (0.55-1.3) 12/10/20 02:49 Glucose 116 mg/dL (74-106) H 12/10/20 02:49 Magnesium 1.9 mg/dL (1.8-2.4) 12/09/20 08:41 Total Bilirubin 0.4 mg/dL (0.2-1.0) 12/09/20 08:41 AST 26 U/L (15-37) 12/09/20 08:41 ALT 39 U/L (12-78) 12/09/20 08:41 Alkaline Phosphatase 73 U/L (45-117) 12/09/20 08:41 Troponin I 0.02 ng/mL (0.0-0.045) 12/10/20 02:49 Triglycerides 260 mg/dL (<150) H 12/10/20 02:49 Cholesterol 143 mg/dL (<200) 12/10/20 02:49 HDL Cholesterol 39 mg/dL (40-60) L 12/10/20 02:49 Cholesterol/HDL Ratio 3.67 12/10/20 02:49 Lipase 127 U/L (73-393) 12/09/20 08:41 Home Medications: Candesartan Cilexetil [Atacand] 16 mg PO BEDTIME 12/22/18 Metformin HCl [Glucophage*] 500 mg PO BIDWM 12/22/18 Rosuvastatin Calcium 10 mg PO BEDTIME 12/22/18 Icosapent Ethyl [Vascepa] 1 tab PO DAILY 12/09/20 Semaglutide [Ozempic] 1 mg SQ SEECOM 12/09/20 Pantoprazole [Protonix Tab] 40 mg PO DAILY #30 tab 12/10/20 New Medications: Pantoprazole [Protonix Tab] 40 mg PO DAILY #30 tab Physician Discharge Instructions: Patient presented with epigastric and chest pain. Chest pain atypical. Patient was observed. Cardiac enzymes unremarkable. No significant EKG changes noted. Patient without significant pain. Suspect epigastric pain related to GERD. CT scan unremarkable. At discharge will recommend to continue Protonix 40 mg daily. Recommend to continue a GERD diet. Recommend to eliminate any acidic products or caffeine at this time. Due to her risk factors will recommend follow-up with cardiology as an outpatient to further evaluate. Patient would benefit with echocardiogram and cardiac stress test as an outpatient. If cardiac work-up unremarkable then the patient would also benefit with GI evaluation with EGD as an outpatient. Recommend follow-up with PCP in 1 week develops hospitalization to continue her care. Patient with hypertension. This is well controlled. At discharge she will continue with Atacand 16 mg daily. Recommend to maintain blood pressure less than 130/80. Further adjustment can be done by her PCP. Patient with mixed hyperlipidemia. Total triglycerides 260, total cholesterol 143, HDL 39, LDL 52. No need for adjustment in medication. At discharge she will continue with her current medications including Crestor 10 mg daily and Vascepa 1 g daily. Recommend follow-up with her PCP to further monitor and adjust medication. Patient with diabetes mellitus type 2. This is well controlled. Hemoglobin A1c 6.5. At discharge she will continue with her current medications of Glucophage 500 mg 1 pill twice daily and Ozempic as directed. Recommend to maintain blood sugars less than 140 fasting and less than 200 after meals. Further adjustment can be done by her PCP. Recommend to recheck hemoglobin A1c in 3 months to monitor her progress. CT scan revealed mild fatty liver. BMI 40.4. Lifestyle modification education provided. Education on fatty liver provided. Diet: ADA Activity: Ad rhona Followup: Gabriel Shoemaker MD [Primary Care Provider] - Time spent managing pt's care (in minutes): 55
[2020-12-10] MEDS ORDERED: ENOXAPARIN 40 MG/0.4 ML SQ SCH (09:00)
[2020-12-10] MEDS ORDERED: POTASSIUM CL SA 10 MEQ TAB PO SCH (09:00)
[2020-12-10] MEDS ORDERED: PANTOPRAZOLE 40 MG INJ IVP SCH (09:00)
[2020-12-10 09:25] VITALS: BP 144/81; TEMP 97.7
[2020-12-10] MEDS: HYDROCODONE/APAP 5/325 MG TAB PO PRN (11:17)
--- NOTE | 2020-12-10 11:36 | EKG ---
Test Date: 2020-12-09 Test Time: 08:42:33 Inner Tube Tuber Machine Operator: SORAIDA MEASUREMENT RESULTS: Intervals: Rate: 80 WA: 194 QRSD: 78 QT: 334 QTc: 385 [place]: P: 42 WA: 194 QRS: 24 T: 47 INTERPRETIVE STATEMENTS: Normal sinus rhythm Minimal voltage criteria for LVH, may be normal variant Nonspecific T wave abnormality Abnormal ECG No previous ECG available for comparison Electronically Signed On 12-10-20 11:31:28 CDT by David Beard
--- NOTE | 2020-12-10 11:42 | ECHO ---
HEIGHT: 4 ft 11 in WEIGHT: 200 lb 0 oz DATE OF STUDY: 12/10/[address]: Shreyas Urbina 2-DIMENSIONAL: YES M.MODE: YES DOPPLER: NO COLOR FLOW: NO TDS: NO PORTABLE: NO DEFINITY: NO BUBBLE STUDY: NO DIAGNOSIS: CHEST PAIN CARDIAC HISTORY: CATHERIZATION: NO SURGERY: NO PROSTHETIC VALVE: NO PACEMAKER: NO MEASUREMENTS (cm) DIASTOLIC (NORMALS) SYSTOLIC (NORMALS) IVSd 1.0 (0.6-1.2) LA Diam 3.4 (1.9-4.0) LVEF 55% LVIDd 3.7 (3.5-5.7) LVIDs 2.6 (2.0-3.5) %FS 28% LVPWd 1.0 (0.6-1.2) Ao Diam 2.6 (2.0-3.7) 2 DIMENSIONAL ASSESSMENT: RIGHT ATRIUM: NORMAL LEFT ATRIUM: NORMAL RIGHT VENTRICLE: NORMAL LEFT VENTRICLE: NORMAL TRICUSPID VALVE: NORMAL MITRAL VALVE: NORMAL PULMONIC VALVE: NORMAL AORTIC VALVE: NORMAL PERICARDIAL EFFUSION: NONE AORTIC ROOT: NORMAL LEFT VENTRICULAR WALL MOTION: NORMAL DOPPLER/COLOR FLOW: NOT REQUESTED. COMMENTS: NORMAL 2D ECHOCARDIOGRAM. NO WALL MOTION ABNORMALITY. NO EFFUSION. TECHNOLOGIST: Manpreet MARCUS
== END 2020-12-10 11:30 | disposition home or self-care (01) ==
LOC: ER 08:09 → ERHOLD 12:53 → 4TH 16:08
PROVIDERS: ADMIT Family Medicine; ATTEND Family Medicine
DX: R10.13 Epigastric pain (principal); R07.89 Other chest pain; I10 Essential (primary) hypertension; E78.2 Mixed hyperlipidemia; E11.9 Type 2 diabetes mellitus without complications; K76.0 Fatty (change of) liver, not elsewhere classified; Z20.822 Contact with and (suspected) exposure to COVID-19; Z79.84 Long term (current) use of oral hypoglycemic drugs; K21.9 Gastro-esophageal reflux disease without esophagitis; R94.31 Abnormal electrocardiogram [ECG] [EKG]; E66.9 Obesity, unspecified; M54.6 Pain in thoracic spine; Z68.41 Body mass index [BMI] 40.0-44.9, adult
CPT/HCPCS: 93307; 93005; 87040 ×2; 85025 ×2; 80048 ×2; 36415 ×2; 83735; 81025; 85610; 80061; 82947 ×3; 80076; 84443; 81003; 83036; 84484 ×4; 84439; 83690; 83880 ×2; 74177; 71045; 96374; 99285; U0003; Q9967; C9113; G0378 ×3; J1650

== ENCOUNTER 2021-01-19 13:07 | Emergency (ER) | payer OTHER ==
--- OUTSIDE RECORDS SUMMARY | 2021-01-19 13:15 | XMS REPORT | Continuity of Care Document ---
:1980 Author Organization [facility] t Address [address] [place] [address] Care Team Providers Name Role Phone Luz [...] 2020-08-14 2020-08-14 Transition Hansel Escobar [id number] 00:00:00 00:00:00 of Care [place] [id number] [place] [id number] [id number] 2020-08-02 2020-08-02 Nurse Therapy, [facility] [id number] 07:34:01 09:04:01 Visit [facility] Covid SPECIALTY [id number] Infusion CARE [id number] CENTER AT [phone] LEATHA Sung3 [facility] 2020-07-30 2020-07-30 Orders Doctor PRAVEENA [id number] 00:00:00 00:00:00 Only Unassigned, [place] [id number] [place] [facility] [id number] 2020-07-29 2020-07-29 [place], [facility] [id number] 18:12:39 18:32:39 Care [facility] [id number] [place] [id number] [facility] [phone] [place] [address] [address] One Results This patient has no known results.
[2021-01-19 14:47] LABS: Urine Blood 2+ (Negative); Urine Glucose Negative (Negative); Urine Protein 2+ (Negative); Urine Specific Gravity 1.015 (1.005-1.030); Urine pH 5.5 (5.0-7.0)
[2021-01-19 15:32] LABS: Basophils % 0.3 % (0-1.3); Hematocrit 44.2 % (36.0-45.0); Lymphocytes % 13.1 % (15.3-44.8); MPV 7.7 fL (7.6-11.3); RBC Red Blood Cell Count 5.12 M/uL (3.86-4.86)
[2021-01-19] MEDS ORDERED: PANTOPRAZOLE 40 MG INJ ONE (15:38)
[2021-01-19] MEDS ORDERED: KETOROLAC 30 MG/ML INJ ONE (15:38)
[2021-01-19] MEDS ORDERED: ONDANSETRON 4 MG/2 ML VIAL ONE (15:38)
[2021-01-19] MEDS ORDERED: NA CHLORIDE 0.9% 1,000 ML ONE (15:38)
[2021-01-19 15:47] LABS: ALT/SGPT 45 U/L (12-78); AST/SGOT 27 U/L (15-37); Albumin 3.7 g/dL (3.4-5.0); Alkaline Phosphatase 77 U/L (45-117); BUN Blood Urea Nitrogen 14 mg/dL (7-18); Bicarbonate 31 mmol/L (21-32); Bilirubin Direct 0.1 mg/dL (0-0.2); Bilirubin Total 0.5 mg/dL (0.2-1.0); Glucose Level 122 mg/dL (74-106); Lipase 110 U/L (73-393); Protein, Total 7.9 g/dL (6.4-8.2); Sodium Level 142 mmol/L (136-145)
--- NOTE | 2021-01-19 15:51 | RAD REPORT ---
EXAM DESCRIPTION: CT - Abdomen Pelvis W Contrast - 01/19/2021 3:37 pm CLINICAL HISTORY: ABD PAIN COMPARISON: Abdomen Pelvis W Contrast dated 12/09/2020; Abdomen Pelvis W Contrast dated 12/22/2018 TECHNIQUE: Biphasic, helical CT imaging of the abdomen and pelvis was performed following 100 ml non -ionic IV contrast. No oral contrast administered. All CT scans are performed using dose optimization technique as appropriate and may include automated exposure control or mA/KV adjustment according to patient size. FINDINGS: No suspicious findings in the lung bases. Liver shows pronounced fatty infiltration without focal finding. Cholecystectomy clips are present wi th no biliary tree dilatation. No pancreas or spleen abnormality. Symmetric renal function is seen with no hydronephrosis or suspicious renal mass. No pyelonephritis o r acute parenchymal process. No bladder abnormalities. No adrenal abnormalities. Approximately 2.8 ce ntimeter enhancing exophytic fibroid seen left lateral margin of the uterus. There is a 2.3 centimete r cyst along the superior margin of the lower uterine segment and cervix region. This may be part of an ovarian cyst positioned towards the midline. A large nabothian cyst would be lesser possibility a significant ovarian abnormality is not suspected. SHUTTLE DRIVER findings are similar to the November comparison. No stomach or small bowel abnormality. No appendicitis. There is circumferential wall thickening and edema of the colon from the cecum to the splenic flexure. Descending colon and proximal sigmoid colon are spared. Distal sigmoid and rectum show a more mild circumferential wall thickening. No colon mas s. No free air, free fluid or pneumatosis. No hernia, mass or bulky lymphadenopathy. No suspicious bony findings. IMPRESSION: Extensive colitis pattern sparing only the descending colon. No colon mass or surgically emergent finding. Diffuse fatty infiltration of the liver. Gallbladder is absent.
--- NOTE | 2021-01-19 15:59 | EDPHYS ---
Physician Documentation [facility] Name: Celina Meeks Age: 40 yrs Sex: Female : 1980 Arrival Date: 01/19/2021 Time: 13:10 Bed 18 Private MD: BARBARA Physician Tristian Cooper HPI: 01/19 15:12 This 40 yrs old Female presents to ER via Ambulatory with complaints of kb Abdominal Pain. 15:12 The patient presents with abdominal pain in the upper abdomen. Onset: The kb symptoms/episode began/occurred 3 day(s) ago. The symptoms do not radiate. Associated signs and symptoms: Pertinent positives: diarrhea, nausea, chills. The symptoms are described as constant. Modifying factors: The symptoms are alleviated by nothing, the symptoms are aggravated by nothing. Severity of pain: At its worst the pain was moderate in the emergency department the pain is unchanged. The patient has experienced a previous episode, diagnosed with gastritis. The patient has not recently seen a physician. 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 - Social history:: Smoking status: Patient denies any tobacco usage or history of. ROS: 15:11 Respiratory: Negative for shortness of breath, cough, wheezing, and pleuritic chest kb pain. 15:11 Constitutional: Positive for chills, malaise. 15:11 Abdomen/GI: Positive for abdominal pain, nausea, diarrhea. 15:11 All other systems are negative. Exam: 15:11 Constitutional: This is a well developed, well nourished patient who is awake, alert, kb and in no acute distress. Head/Face: Normocephalic, atraumatic. ENT: Moist Mucous membranes Cardiovascular: Regular rate and rhythm with a normal S1 and S2. No gallops, murmurs, or rubs. No pulse deficits. Respiratory: Respirations even and unlabored. No increased work of breathing, no retractions or nasal flaring. Back: No spinal tenderness. No costovertebral tenderness. Full range of motion. Skin: Warm, dry with normal turgor. Normal color. MS/ Extremity: Pulses equal, no cyanosis. Neurovascular intact. Full, normal range of motion. Neuro: Awake and alert, GCS 15, oriented to person, place, time, and situation. Moves all extremities. Normal gait. Psych: Awake, alert, with orientation to person, place and time. Behavior, mood, and affect are within normal limits. 15:11 Abdomen/GI: Inspection: abdomen appears normal, Bowel sounds: normal, Palpation: soft, in all quadrants, moderate abdominal tenderness, in the right upper quadrant and left upper quadrant. Vital Signs: 13:35 BP 119 / 83; Pulse 100; Resp 18 S; Temp 97.4(TE); Pulse Ox 97% ; Weight 86.18 kg (R); ca1 Height 4 ft. 11 in. (149.86 cm) (R); Pain 10/10; 14:30 BP 111 / 60; Pulse 91; Resp 20; Pulse Ox 96% on R/A; kg 15:11 BP 99 / 46; Pulse 93; Resp 20; Pulse Ox 98% on R/A; Pain 7/10; kg 16:14 BP 102 / 50; Pulse 87; Resp 20; Pulse Ox 97% on R/A; kg 13:35 Body Mass Index 38.37 (86.18 kg, 149.86 cm) ca1 MDM: 14:39 Patient medically screened. kb 15:11 Data reviewed: vital signs, nurses notes. Data interpreted: Pulse oximetry: on room air kb is 97 %. Interpretation: normal. 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 ED course: discussed findings with pt. Discussed oral antibiotics and outpatient follow up and well as admission for IV antibiotics. Pt prefers to go home and try oral antibiotics first. Pt will return for worsening symptoms or any other concerns.. 01/19 14:39 Order name: Basic Metabolic Panel; Complete Time: 15:49 kb 01/19 14:39 Order name: CBC with Diff; Complete Time: 15:49 kb 01/19 14:39 Order name: Hepatic Function; Complete Time: 15:49 kb 01/19 14:39 Order name: Lipase; Complete Time: 15:49 kb 01/19 14:46 Order name: Urine Dipstick-Ancillary; Complete Time: 14:48 EDMS 01/19 14:50 Order name: Urine --Ancillary (enter results) eb 01/19 14:39 Order name: IV Saline Lock; Complete Time: 15:12 kb 01/19 15:13 Order name: CT Abd/Pelvis - IV Contrast Only; Complete Time: 15:52 kb 01/19 14:39 Order name: Labs collected and sent; Complete Time: 15:12 kb Administered Medications: 15:25 Drug: NS 0.9% 1000 ml Route: IV; Rate: 1000 ml; Site: right antecubital; kg 16:13 Follow up: Response: No adverse reaction; IV Status: Completed infusion; IV Intake: kg 1000ml 15:25 Drug: ProTONIX (pantoprazole) 40 mg Route: IVP; Site: right antecubital; kg 16:12 Follow up: Response: No adverse reaction; Marked relief of symptoms kg 15:25 Drug: Ketorolac 15 mg Route: IVP; Site: right antecubital; kg 16:13 Follow up: Response: No adverse reaction; Marked relief of symptoms kg 15:25 Drug: Zofran (Ondansetron) 4 mg Route: IVP; Site: right antecubital; kg 16:13 Follow up: Response: No adverse reaction; Marked relief of symptoms kg 16:01 Drug: Flagyl (metroNIDAZOLE) 500 mg Route: PO; kg 16:13 Follow up: Response: No adverse reaction kg 16:01 Drug: Cipro (ciprofloxacin) 500 mg Route: PO; kg 16:13 Follow up: Response: No adverse reaction kg Disposition: 01/20 13:19 Co-signature as Attending Physician, Tristian Cooper MD I agree with the assessment and favian plan of care. Disposition Summary: 01/19/21 15:59 Discharge Ordered Location: Home kb Condition: Stable kb Diagnosis - Colitis kb Followup: kb - With: Emergency Department - When: As needed - Reason: Worsening of condition Followup: kb - With: Private Physician - When: 2 - 3 days - Reason: Recheck today's complaints, Continuance of care, Re-evaluation by your physician Discharge Instructions: - Discharge Summary Sheet kb - Colitis kb Forms: - Medication Reconciliation Form kb - Thank You Letter kb - Antibiotic Education kb - Prescription Opioid Use kb - Work release form eb Prescriptions: - Cipro 500 mg Oral Tablet - take 1 tablet by ORAL route every 12 hours for 10 days; 20 tablet; Refills: 0, kb Product Selection Permitted - Flagyl 500 mg Oral Tablet - take 1 tablet by ORAL route every 8 hours for 10 days; 30 tablet; Refills: 0, kb Product Selection Permitted - Zofran 4 mg Oral Tablet - take 1 tablet by ORAL route every 6 hours As needed; 20 tablet; Refills: 0, kb Product Selection Permitted - dicyclomine 20 mg Oral Tablet - take 1 tablet by ORAL route 4 times per day As needed; 20 tablet; Refills: 0, kb Product Selection Permitted Signatures: Dispatcher [employer] EDJudith Ploanco, NATALIIAC ROBEL-Tristian Monte MD MD cha Acob, Cheryl, RN RN Sole Bojorquez RN RN kg
--- NOTE | 2021-01-19 15:59 | ER ---
Nurse's Notes [facility] Name: Celina Meeks Age: 40 yrs Sex: Female : 1980 Arrival Date: 01/19/2021 Time: 13:10 Bed 18 Private MD: Diagnosis: Colitis Presentation: 01/19 13:35 Chief complaint: Patient states: upper abdominal pain, nausea and dizziness x 3 days, ca1 worse today. Coronavirus screen: Client denies travel out of the [place] in the last 14 days. diarrhea, nausea, Client presents with at least one sign or symptom that may indicate coronavirus-19. Standard/surgical mask placed on the client. Provider contacted for isolation considerations. Ebola Screen: Patient negative for fever greater than or equal to 101.5 degrees Fahrenheit, and additional compatible Ebola Virus Disease symptoms Patient denies exposure to infectious person. Patient denies travel to an Ebola-affected area in the 21 days before illness onset. No symptoms or risks identified at this time. Initial Sepsis Screen: Does the patient meet any 2 criteria? No. Patient's initial sepsis screen is negative. Does the patient have a suspected source of infection? No. Patient's initial sepsis screen is negative. Risk Assessment: Do you want to hurt yourself or someone else? Patient reports no desire to harm self or others. Onset of symptoms was December 18, 2020. 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 - Social history:: Smoking status: Patient denies any tobacco usage or history of. Screenin:08 Abuse screen: Denies threats or abuse. Denies injuries from another. Nutritional kg screening: No deficits noted. Tuberculosis screening: No symptoms or risk factors identified. Fall Risk None identified. No fall in past 12 months (0 pts). No secondary diagnosis (0 pts). IV access (20 points). Ambulatory Aid- None/Bed Rest/Nurse Assist (0 pts). Gait- Normal/Bed Rest/Wheelchair (0 pts) Mental Status- Oriented to own ability (0 pts). Assessment: 15:08 General: Appears uncomfortable, Behavior is calm, cooperative, appropriate for age, kg quiet. Pain: Complains of pain in epigastric area Pain currently is 7 out of 10 on a pain scale. at worst was 10 out of 10 on a pain scale. level that patient reports is acceptable is 3 out of 10 on a pain scale. Quality of pain is described as burning, aching, crampy, sharp, Pain began 2-3 days ago. Neuro: No deficits noted. Cardiovascular: No deficits noted. Heart tones S1 S2 Capillary refill < 3 seconds. Respiratory: No deficits noted. Airway is patent Trachea midline Respiratory effort is even, unlabored, relaxed, Respiratory pattern is regular, symmetrical. GI: Abdomen is round obese, Bowel sounds present X 4 quads. Abd is soft Abdomen is tender to palpation X 4 quads. Reports upper abdominal pain, diarrhea, nausea. : No deficits noted. EENT: No deficits noted. Derm: No deficits noted. Musculoskeletal: No deficits noted. Vital Signs: 13:35 BP 119 / 83; Pulse 100; Resp 18 S; Temp 97.4(TE); Pulse Ox 97% ; Weight 86.18 kg (R); ca1 Height 4 ft. 11 in. (149.86 cm) (R); Pain 10/10; 14:30 BP 111 / 60; Pulse 91; Resp 20; Pulse Ox 96% on R/A; kg 15:11 BP 99 / 46; Pulse 93; Resp 20; Pulse Ox 98% on R/A; Pain 7/10; kg 16:14 BP 102 / 50; Pulse 87; Resp 20; Pulse Ox 97% on R/A; kg 13:35 Body Mass Index 38.37 (86.18 kg, 149.86 cm) ca1 ED Course: 13:10 Patient arrived in ED. mr 13:36 Triage completed. ca1 13:36 Arm band placed on right wrist. ca1 14:39 [facility]C [facility] kb 14:39 Tristian Cooper MD is Attending Physician. kb 15:08 Sole Tirado, RN is Primary Nurse. kg 15:08 Patient has correct armband on for positive identification. Bed in low position. Call kg light in reach. Side rails up X2. 15:08 Inserted saline lock: 18 gauge in right antecubital area, using aseptic technique. kg 15:37 CT Abd/Pelvis - IV Contrast Only In Process Unspecified. EDMS 16:15 No provider procedures requiring assistance completed. IV discontinued, intact, kg bleeding controlled, No redness/swelling at site. Pressure dressing applied. Administered Medications: 15:25 Drug: NS 0.9% 1000 ml Route: IV; Rate: 1000 ml; Site: right antecubital; kg 16:13 Follow up: Response: No adverse reaction; IV Status: Completed infusion; IV Intake: kg 1000ml 15:25 Drug: ProTONIX (pantoprazole) 40 mg Route: IVP; Site: right antecubital; kg 16:12 Follow up: Response: No adverse reaction; Marked relief of symptoms kg 15:25 Drug: Ketorolac 15 mg Route: IVP; Site: right antecubital; kg 16:13 Follow up: Response: No adverse reaction; Marked relief of symptoms kg 15:25 Drug: Zofran (Ondansetron) 4 mg Route: IVP; Site: right antecubital; kg 16:13 Follow up: Response: No adverse reaction; Marked relief of symptoms kg 16:01 Drug: Flagyl (metroNIDAZOLE) 500 mg Route: PO; kg 16:13 Follow up: Response: No adverse reaction kg 16:01 Drug: Cipro (ciprofloxacin) 500 mg Route: PO; kg 16:13 Follow up: Response: No adverse reaction kg Intake: 16:13 IV: 1000ml; Total: 1000ml. kg Outcome: 15:59 Discharge ordered by MD. heller 16:15 Discharged to home ambulatory. kg 16:15 Condition: improved 16:15 Discharge instructions given to patient, significant other, Instructed on discharge instructions, follow up and referral plans. Demonstrated understanding of instructions, follow-up care, medications, Prescriptions given X 4. 16:16 Patient left the ED. kg Signatures: Dispatcher [employer] EDMS Judith Rios, CELENA HUSTON-Ezequiel Svitlana Ramírez mr Francie Christianson RN RN ca1 Sole Tirado RN RN kg
[2021-01-19 16:25] VITALS: TEMP 97.4
[2021-01-19] MEDS ORDERED: metroNIDAZOLE 500 MG TABLET ONE (16:25)
[2021-01-19] MEDS ORDERED: CIPROFLOXACIN HCL 500 MG TAB ONE (16:25)
[2021-01-19 16:29] VITALS: BP 99/46; O2SAT 98
[2021-01-19 20:18] LABS: Urine Specific Gravity/Preg 1.015 (1.005-1.030)
== END 2021-01-19 16:16 | disposition home or self-care (01) ==
LOC: ER 13:07
DX: K52.9 Noninfective gastroenteritis and colitis, unspecified (principal); I10 Essential (primary) hypertension
CPT/HCPCS: 96361; 85025; 80048; 36415; 81025; 82565; 80076; 81003; 83690; 74177; 96375; 96374; 99284; Q9967; C9113; J7030; J2405

== ENCOUNTER 2021-06-27 14:58 | Emergency (ER) | payer OTHER ==
--- OUTSIDE RECORDS SUMMARY | 2021-06-27 15:00 | XMS REPORT | Continuity of Care Document ---
:1980 Author Organization [facility] t Address [address] [place] [address] Care Team Providers Name Role Phone Tino HENSON Attending Clinician Unavailable Luz DUFF M Attending Clinician Therapy, Covid Infusion Attending Clinician Unavailable Sixto EARL M Attending Clinician Doctor Unassigned, Name Attending Clinician Unavailable Suzette HUSTON Attending Clinician SUZETTE Attending Clinician Unavailable Payers Payer Name Policy Type Policy Number Effective Date Expiration Date Irena reyez [employer] PPO GENERIC [id number] 2020 00:00:00 Problems Condition Condition Condition Status Onset Resolution Last Treating Co mments Source Name Details Category Date Date Treatment Clinician Date COVID-19 COVID-19 Disease Active Unive rs 1-15 ity of 00:00: [address] Pain Pain Disease Active Univers pelvic pelvic 3-23 ity of 00:00: [address] BV BV Disease Active Univers (bacterial (bacterial 3-22 it y of [place]inosis[place] [facility] Screening Screening Disease Active Overview: Univers for STD for STD 8-26 ICD10 ity of (sexually (sexually 00:00: [place] transmitte transmitte 00 Term Me dical d disease) d disease) 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 Other and Other and Disease Active Uni vers unspecifie unspecifie 03-13 [place] of d ovarian d ovarian [place] cyst cyst [place] H/O tubal H/O tubal Disease Active Uni vers ligation ligation 03-13 ity of 00:00: [place] [facility] Morbid Morbid Disease Active Univers obesity obesity 03-13 ity of 00:00: [address] Allergies, Adverse Reactions, Alerts Allergy Allergy Status Severity Reaction(s) Onset Inactive Treating Comm ents Source Name Type Date Date Clinician NO KNOWN Drug Active Univers ALLERGIE Class ity of S [facility] Social History Social Habit Start Date Stop Date Quantity Comments Source Sex Assigned At [facility] y of [facility] Exposure to Yes [facility] SARS-CoV-2 [facility] (event) [place] Tobacco use and 2020-07-29 2020-07-29 Never used [facility] y of exposure 00:00:00 00:00:00 [facility] Alcohol intake 2020-07-29 2020-07-29 Current [facility] 00:00:00 00:00:00 non-drinker of [facility] alcohol [place] (finding) Smoking Status Start Date Stop Date Source Never smoker [facility] Medications Ordered Filled Start Stop Current Ordering Indication Dosage Frequency Signature Comments Components Source Medication Medication Date Date Medication? Clinician (SIG) Name Name carvedilol Yes 6.25mg Take 6.25 Univers (COREG) 1-26 mg by ity of 6.25 mg 19:37: mouth 2 [place] tablet 33 (two) Medical times Branch daily with meals. carvedilol Yes 6.25mg Take 6.25 Univers (COREG) 1-26 mg by ity of 6.25 mg 19:37: mouth 2 [place] tablet 33 (two) Medical times [place] daily with meals. insulin Yes [id number] 10U inject 10 Univers glargine 1-26 Units ity of 100 unit/mL 00:00: under the [place] injection 00 skin at Medical bedtime. Branch metformin 2019-07 Yes TAKE 1 TO Uni vers ER 500 mg 1-10 2 TABLETS ity o f 24 hr 00:00: BY MOUTH [place] tablet 00 TWICE Medical DAILY WITH Branch MEALS rosuvastati 2019-07 Yes 10mg Take 10 mg Univers n 10 mg 1-10 by mouth ity of tablet 00:00: daily. [place] 00 Medical Branch pentazocine 2015-07 Yes 1{tbl} Take 1 Un dipti -naloxone 0-28 tablet by ity o f (TALWIN NX) 00:00: mouth [place] 50-0.5 mg 00 every 4 Medical tablet (four) Branch hours as needed for Pain for up to 20 doses. proMETHazin 2015-07 Yes 25mg Take 1 Univ ers e 0-28 tablet by ity of (PHENERGAN) 00:00: mouth [place] 25 mg 00 every 6 Medical tablet (six) Branch hours as needed for Nausea and Vomiting (N/V). pentazocine 2015-07 Yes 1{tbl} Take 1 Un dipti -naloxone 0-28 tablet by ity o f (TALWIN NX) 00:00: mouth [place] 50-0.5 mg 00 every 4 Medical tablet (four) Branch hours as needed for Pain for up to 20 doses. proMETHazin 2015-07 Yes 25mg Take 1 Univ ers e 0-28 tablet by ity of (PHENERGAN) 00:00: mouth [place] 25 mg 00 every 6 Medical tablet (six) Branch hours as needed for Nausea and Vomiting (N/V). pentazocine 2015-07 Yes 1{tbl} Take 1 Un dipti -naloxone 0-28 tablet by ity o f (TALWIN NX) 00:00: mouth [place] 50-0.5 mg 00 every 4 Medical tablet (four) Branch hours as needed for Pain for up to 20 doses. proMETHazin 2015-07 Yes 25mg Take 1 Univ ers e 0-28 tablet by ity of (PHENERGAN) 00:00: mouth [place] 25 mg 00 every 6 Medical tablet (six) Branch hours as needed for Nausea and Vomiting (N/V). pentazocine 2015-07 Yes 1{tbl} Take 1 Un dipti -naloxone 0-28 tablet by ity o f (TALWIN NX) 00:00: mouth [place] 50-0.5 mg 00 every 4 Medical tablet (four) Branch hours as needed for Pain for up to 20 doses. proMETHazin 2015-07 Yes 25mg Take 1 Univ ers e 0-28 tablet by ity of (PHENERGAN) 00:00: mouth [place] 25 mg 00 every 6 Medical tablet (six) Branch hours as needed for Nausea and Vomiting (N/V). metroNIDAZO Yes [id number] 500mg Take 1 Tab Univers LE (FLAGYL) 3-22 by mouth 2 it y of 500 mg 00:00: (two) [place] tablet 00 times Medical daily. Branch metroNIDAZO Yes [id number] 500mg Take 1 Tab Univers LE (FLAGYL) 3-22 by mouth 2 it y of 500 mg 00:00: (two) [place] tablet 00 times Medical daily. Branch metroNIDAZO Yes [id number] 500mg Take 1 Tab Univers LE (FLAGYL) 3-22 by mouth 2 it y of 500 mg 00:00: (two) [place] tablet 00 times Medical daily. Branch metroNIDAZO Yes [id number] 500mg Take 1 Tab Univers LE (FLAGYL) 3-22 by mouth 2 it y of 500 mg 00:00: (two) [place] tablet 00 times Medical daily. Branch carvedilol 2014-07 Yes 6.25mg Take 6.25 Univers (COREG) 1-06 mg by ity of 6.25 mg 01:38: mouth 2 [place] tablet 00 (two) Medical times [place] daily with meals. carvedilol 2014-07 Yes 6.25mg Take 6.25 Univers (COREG) 1-06 mg by ity of 6.25 mg 01:38: mouth 2 [place] tablet 00 (two) Medical times [place] daily with meals. Immunizations Ordered Filled Immunization Date Status Comments [facility] e Immunization Name Name [facility] 2008-10-30 Completed [facility] 00:00:00 [facility] 2008-10-30 Completed University of 00:00:00 [facility] 2008-10-30 Completed University of 00:00:00 [facility] 2008-10-30 Completed [facility] 00:00:00 [facility] Vital Signs Vital Name Observation Time Observation Value Comments Source Systolic blood 2020-07-30 00:16:00 135 mm[Hg] Univer sity of pressure [facility] Diastolic blood 2020-07-30 00:16:00 84 mm[Hg] Unive rsity of [facility] Heart rate 2020-07-30 00:16:00 112 /min [facility] Body temperature 2020-07-30 00:16:00 37.56 Kenisha [facility] Respiratory rate 2020-07-30 00:16:00 17 /min Univ [facility] [place] [facility] Body height 2020-07-30 00:16:00 149.9 cm [facility] [place] [facility] Body weight 2020-07-30 00:16:00 97.523 kg [facility] [place] [facility] BMI 2020-07-30 00:16:00 43.42 kg/m2 Universi ty [facility] [place] [facility] Oxygen saturation in 2020-07-30 00:16:00 96 /min University of Arterial blood by [facility] Pulse oximetry Branch Systolic blood 2020-07-30 00:16:00 135 mm[Hg] Univer sity of pressure [place] Medical [place] Diastolic blood 2020-07-30 00:16:00 84 mm[Hg] Unive rsity of pressure [place] Medical [place] Heart rate 2020-07-30 00:16:00 112 /min [facility]i ty [facility] [place] [facility] Body temperature 2020-07-30 00:16:[address] [facility] ersity of [place] Medical Branch Respiratory rate 2020-07-30 00:16:00 17 /min Univ ers[facility] [place] [facility] Body height 2020-07-30 00:16:00 149.9 cm [facility]i ty [facility] [place] [facility] Body weight 2020-07-30 00:16:00 97.523 kg [facility] [place] [facility] BMI 2020-07-30 00:16:00 43.42 kg/m2 [facility] ty [facility] [place] [facility] Oxygen saturation in 2020-07-30 00:16:00 96 /min [place] Arterial blood by [facility] Pulse oximetry Branch Procedures Procedure Date / Time Performed Performing Clinician [facility] e SCANNED LAB RESULTS 2020-07-30 06:01:00 Doctor Unassigned, No Un [facility] [place] Name Medical Branch Encounters Start End Encounter Admission Attending Care Care Encounter Source Date/Time Date/Time Type Type Clinicians Facility Department ID 2021-05-17 Emergency [facility] [id number] Univers 17:35:02 ity of [facility] Branch 2020-11-16 2020-11-16 Outpatient [facility] [id number] Univers 08:35:00 08:35:00 ity of [facility] 2020-11-16 2020-11-16 Outpatient [facility] [id number] Univers 08:05:00 08:05:00 ity [facility] 2020-10-26 2020-10-26 [facility] [id number] Univers 08:10:00 08:10:00 [facility] 2020-08[facility]14 2020-08-14 Transition Hansel Escobar [id number] 00:00:00 00:00:00 of Care [place] [id number] [place] [id number] 2020-08-14 2020-08-14 Transition Hansel Escobar [id number] Univers 00:00:00 00:00:00 of Care [place] [id number] i ty of [place] [id number] [place] [id number] [address] 2020-08-02 2020-08-02 Outpatient R [facility] [id number] Univers 12:00:00 12:00:00 [id number] [facility] 2020-08-02 2020-08-02 [facility] [id number] Univers 12:00:00 12:00:00 EVAN [facility] 2020-08-02 2020-08-02 Nurse Therapy, [facility] [id number] 07:34:01 09:04:01 Visit [facility] Covid SPECIALTY [id number] Infusion CARE [id number] CENTER AT [id number] LEATHA [address] [place] [address] 2020-08-02 2020-08-02 Nurse Therapy, [facility] Covid Infusion [facility] [id number] Univers 07:34:01 09:04:01 Visit Evan Henson SPECIALTY [id number] ity of C[place] [id number] [place] C[place] AT [id number] Az carmela Del [facility] 2020-07-30 2020-07-30 Orders Doctor GRISSOM [id number] 00:00:00 00:00:00 Only Unassigned, ELI [id number] [place] [facility] [id number] 2020-07-30 2020-07-30 Orders Doctor PRAVEENA [id number] Univers 00:00:00 00:00:00 Only Unassigned, ELI [id number] ity of [place] [facility] [id number] [place] as [id number] [address] 2020-07-29 2020-07-29 [facility] [id number] 18:12:39 18:32:39 Care [facility] [id number] [place] [id number] Professio [phone] [place] [address] Office Building [facility] 2020-07-29 2020-07-29 [facility] [id number] Univers 18:12:39 18:32:39 Care [facility] [id number] it y of [place] [id number] [place] as Professio [phone] Az dical [address] Office Building [facility] 2020-07-29 2020-07-29 Outpatient R SUZETTE [facility] [id number] Univers 18:20:00 18:20:00 BASIL ity [facility] Results This patient has no known results.
[2021-06-27 16:21] LABS: SARS-COV-2 RT PCR NEGATIVE (NEGATIVE)
[2021-06-27 18:47] LABS: Urine Blood 2+ (Negative); Urine Glucose Negative (Negative); Urine Protein 1+ (Negative); Urine Specific Gravity 1.015 (1.005-1.030)
[2021-06-27 18:50] LABS: Urine Specific Gravity/Preg 1.015 (1.005-1.030)
[2021-06-27 18:58] LABS: Absolute Lymphocytes (CBC) 2.3 K/uL (0.7-4.9); Basophils % 0.4 % (0-1.3); Hematocrit 42.4 % (36.0-45.0); Lymphocytes % 14.2 % (15.3-44.8); MPV 6.9 fL (7.6-11.3); RBC Red Blood Cell Count 4.83 M/uL (3.86-4.86)
[2021-06-27] MEDS ORDERED: MORPHINE 4 MG/ML SYR ONE (19:00)
[2021-06-27] MEDS ORDERED: ONDANSETRON 4 MG/2 ML VIAL ONE (19:00)
[2021-06-27] MEDS ORDERED: NA CHLORIDE 0.9% 1,000 ML ONE (19:00)
[2021-06-27 19:09] LABS: Albumin 3.7 g/dL (3.4-5.0); BUN Blood Urea Nitrogen 13 mg/dL (7-18); Bicarbonate 32 mmol/L (21-32); Glucose Level 120 mg/dL (74-106); Lipase 180 U/L (73-393); Potassium 3.9 mmol/L (3.5-5.1); Sodium Level 143 mmol/L (136-145)
[2021-06-27 19:13] LABS: ALT/SGPT 49 U/L (12-78); AST/SGOT 26 U/L (15-37); Alkaline Phosphatase 74 U/L (45-117); Bilirubin Direct < 0.1 mg/dL (0-0.2); Bilirubin Total 0.4 mg/dL (0.2-1.0); Protein, Total 7.6 g/dL (6.4-8.2); Urine Bacteria <20 /HPF (<20)
[2021-06-27 19:59] LABS: Blood Morphology Comment NOT SEEN (NOT SEEN); Platelet Estimate DECR; White Blood Cell Scan OK (OK)
--- NOTE | 2021-06-27 20:49 | RAD REPORT ---
EXAM DESCRIPTION: CTAbdomen Pelvis W Contrast - 06/27/2021 8:28 pm CLINICAL HISTORY: ABD PAIN COMPARISON: Abdomen Pelvis W Contrast dated 01/19/2021; Abdomen Pelvis W Contrast dated 12/09/2020; Abdomen Pelvis W Contrast dated 12/22/2018 TECHNIQUE: CT of the abdomen and pelvis was performed. All CT scans are performed using dose optimization technique as appropriate and may include automated exposure control or mA/KV adjustment according to patient size. FINDINGS: Lower chest: Mild nonspecific ground-glass opacities in the lung bases is as a chronic fin ding. Liver: Hepatic steatosis. Biliary: Cholecystectomy. Stomach: No significant focal abnormality. Duodenum: No significant focal abnormality. Pancreas: No significant abnormality. Spleen: No significant abnormality. Adrenal: No suspicious lesions. Kidney/ureter: No hydronephrosis. No renal calculi. Subcentimeter left renal lesion which is likely a cyst. Retroperitoneum: No retroperitoneal adenopathy. Vascular: No aneurysm. Bowel: Normal appendix. Mild thickening of the ascending and transverse colon. There is some fluid wi thin the distal small bowel.. Peritoneum: No ascites or free air. Small fat containing umbilical hernia. Bladder: Grossly unremarkable. Reproductive: Nabothian cysts noted. Exophytic fibroid. Bones: No acute fracture. Other: n/a IMPRESSION: Ascending and transverse colonic wall thickening concerning for a mild colitis. This is a similar distribution to 01/19/2021 though the inflammatory changes are not as severe. Normal append ix.
[2021-06-27] MEDS ORDERED: metroNIDAZOLE 500 MG TABLET ONE (21:12)
[2021-06-27] MEDS ORDERED: CIPROFLOXACIN HCL 500 MG TAB ONE (21:13)
--- NOTE | 2021-06-27 21:34 | ER ---
Nurse's Notes [facility] Name: Celina Meeks Age: 41 yrs Sex: Female : 1980 Arrival Date: 06/27/2021 Time: 14:59 Bed 14 Private MD: Gabriel Shoemaker B Diagnosis: Indeterminate colitis;Diarrhea, unspecified Presentation: 06/27 15:18 Chief complaint: Patient states: dizziness, fatigue and upper abd pain that began last ss night. Also c/o diarrhea/ chills. Coronavirus screen: Client denies travel out of the [place] in the last 14 days. Ebola Screen: Patient denies exposure to infectious person. Patient denies travel to an Ebola-affected area in the 21 days before illness onset. Initial Sepsis Screen: Does the patient meet any 2 criteria? No. Patient's initial sepsis screen is negative. Does the patient have a suspected source of infection? No. Patient's initial sepsis screen is negative. Risk Assessment: Do you want to hurt yourself or someone else? Patient reports no desire to harm self or others. Onset of symptoms was June 26, 2021. 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 - Social history:: Smoking status: Patient denies any tobacco usage or history of. Screenin:53 Abuse screen: Denies threats or abuse. Denies injuries from another. Nutritional ld1 screening: No deficits noted. Tuberculosis screening: No symptoms or risk factors identified. Fall Risk None identified. Assessment: 18:53 General: Appears in no apparent distress. comfortable, Behavior is calm, cooperative, ld1 appropriate for age. Pain: Complains of pain in right upper quadrant and left upper quadrant Pain does not radiate. Pain currently is 8 out of 10 on a pain scale. Quality of pain is described as throbbing, Pain began suddenly, Is continuous. Neuro: Level of Consciousness is awake, alert, obeys commands, Oriented to person, place, time, situation. Cardiovascular: Capillary refill < 3 seconds Patient's skin is warm and dry. Rhythm is regular. Respiratory: Airway is patent Respiratory effort is even, unlabored, Respiratory pattern is regular, symmetrical. GI: Abdomen is round non-distended, Bowel sounds present X 4 quads. Abd is soft Abdomen is tender to palpation X 4 quads. Reports upper abdominal pain. : No signs and/or symptoms were reported regarding the genitourinary system. EENT: No signs and/or symptoms were reported regarding the EENT system. Derm: No signs and/or symptoms reported regarding the dermatologic system. Musculoskeletal: No signs and/or symptoms reported regarding the musculoskeletal system. Vital Signs: 15:18 BP 145 / 94; Pulse 104; Resp 20; Temp 98.6(TE); Pulse Ox 100% on R/A; Weight 77.11 kg; ss Height 4 ft. 10 in. (147.32 cm); Pain 10/10; 18:53 BP 128 / 58; Pulse 82; Resp 18; Pulse Ox 98% on R/A; Pain 8/10; ld1 15:18 Body Mass Index 35.53 (77.11 kg, 147.32 cm) ED Course: 14:59 Patient arrived in ED. am2 14:59 Gabriel Shoemaker MD is Private Physician. am2 15:20 Triage completed. ss 15:20 Arm band placed on left wrist. ss 18:50 Tristian Mcguire PA is PHCP. cp 18:50 Tobin Kearns MD is Attending Physician. cp 18:53 Criselda Wan, SHERIN is Primary Nurse. ld1 18:53 Patient has correct armband on for positive identification. Placed in gown. Bed in low ld1 position. Call light in reach. Side rails up X2. obstetrical anesthesiologist on. Pulse ox on. NIBP on. Door closed. Noise minimized. Warm blanket given. 18:53 No provider procedures requiring assistance completed. Inserted saline lock: 20 gauge ld1 in right antecubital area, using aseptic technique. Blood collected. 20:28 CT Abd/Pelvis - IV Contrast Only In Process Unspecified. EDMS 21:32 Darren Espinoza MD is Referral Physician. cp 22:00 IV discontinued. mr2 Administered Medications: 19:04 Drug: Zofran (Ondansetron) 4 mg Route: IVP; Site: right antecubital; ld1 19:04 Drug: morphine 4 mg Route: IVP; Site: right antecubital; ld1 19:04 Drug: NS 0.9% 1000 ml Route: IV; Rate: 1 bolus; Site: right antecubital; ld1 21:09 Drug: metroNIDAZOLE 500 mg Route: PO; mr2 21:09 Drug: Cipro (ciprofloxacin) 500 mg Route: PO; mr2 Outcome: 21:33 Discharge ordered by . cp 22:20 Patient left the ED. mr2 22:39 Discharged to home with family. mr2 22:39 Condition: stable 22:39 Discharge instructions given to patient. Signatures: Dispatcher [employer] EDMS Jamila Packer RN RN ss Tristian Mcguire PA PA cp Moreno, Amanda am2 Dibbern, Lauren, RN RN ld1 Raul Le RN RN mr2
--- NOTE | 2021-06-27 21:34 | EDPHYS ---
Physician Documentation [facility] Name: Celina Meeks Age: 41 yrs Sex: Female : 1980 Arrival Date: 06/27/2021 Time: 14:59 Bed 14 Private MD: Gabriel Shoemaker B ED Physician Tobin Kearns HPI: 06/27 19:00 This 41 yrs old Female presents to ER via Ambulatory with complaints of cp Abdominal Pain, Diarrhea, Dizziness. 19:00 The patient presents with abdominal pain in the upper abdomen. Onset: The cp symptoms/episode began/occurred last night. Associated signs and symptoms: Pertinent positives: diarrhea, nausea, chills, dizziness, Pertinent negatives: blood in stools, chest pain, constipation, dysuria, fever, vomiting. The symptoms are described as constant. Severity of pain: in the emergency department the pain is unchanged despite home interventions. 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 - Social history:: Smoking status: Patient denies any tobacco usage or history of. ROS: 19:05 Constitutional: Positive for chills, Negative for body aches, fever, poor PO intake. cp 19:05 Eyes: Negative for injury, pain, redness, and discharge. cp 19:05 ENT: Negative for ear pain, sore throat, difficulty swallowing, difficulty handling secretions. 19:05 Cardiovascular: Negative for chest pain, palpitations. 19:05 Respiratory: Negative for cough, shortness of breath, wheezing. 19:05 Abdomen/GI: Positive for abdominal pain, nausea, diarrhea, Negative for vomiting, black/tarry stool, rectal bleeding. 19:05 : Negative for urinary symptoms. 19:05 Neuro: Negative for altered mental status, headache, weakness. 19:05 All other systems are negative. Exam: 19:10 Constitutional: The patient appears in no acute distress, alert, awake, non-toxic, well cp developed, well nourished, uncomfortable. 19:10 Head/Face: Normocephalic, atraumatic. cp 19:10 Eyes: Periorbital structures: appear normal, Conjunctiva: normal, no exudate, no injection, Sclera: no appreciated abnormality, Lids and lashes: appear normal, bilaterally. 19:10 ENT: External ear(s): are unremarkable, Nose: is normal, Mouth: Lips: moist, Oral mucosa: moist, Posterior pharynx: Airway: no evidence of obstruction, patent. 19:10 Chest/axilla: Inspection: normal. 19:10 Cardiovascular: Rate: tachycardic, Rhythm: regular. 19:10 Respiratory: the patient does not display signs of respiratory distress, Respirations: normal, no use of accessory muscles, no retractions, labored breathing, is not present, Breath sounds: are clear throughout, no decreased breath sounds, no stridor, no wheezing. 19:10 Abdomen/GI: Inspection: abdomen appears normal, Bowel sounds: active, all quadrants, Palpation: soft, in all quadrants, moderate abdominal tenderness, in the right upper quadrant and left upper quadrant, rebound tenderness, is not appreciated, voluntary guarding, is elicited in the right upper quadrant and left upper quadrant. 19:10 Back: CVA tenderness, is absent. 19:10 Neuro: Orientation: to person, place \\T\\ time. Mentation: is normal, Motor: moves all fours, strength is normal, Sensation: is normal. Vital Signs: 15:18 BP 145 / 94; Pulse 104; Resp 20; Temp 98.6(TE); Pulse Ox 100% on R/A; Weight 77.11 kg; ss Height 4 ft. 10 in. (147.32 cm); Pain 10/10; 18:53 BP 128 / 58; Pulse 82; Resp 18; Pulse Ox 98% on R/A; Pain 8/10; ld1 15:18 Body Mass Index 35.53 (77.11 kg, 147.32 cm) ss MDM: 18:53 Patient medically screened. cp 19:00 Differential diagnosis: diverticulitis, gastritis, pancreatitis, Perf. Duodenal Ulcer, cp Perf. Gastric Ulcer, Pyelonephritis, Ureterolithiasis, urinary tract infection. 21:32 Data reviewed: vital signs, nurses notes, lab test result(s), radiologic studies, CT cp scan. 21:32 Counseling: I had a detailed discussion with the patient and/or guardian regarding: the cp historical points, exam findings, and any diagnostic results supporting the discharge/admit diagnosis, lab results, radiology results, the need for outpatient follow up, for definitive care, a appliance counselor, to return to the emergency department if symptoms worsen or persist or if there are any questions or concerns that arise at home. Response to treatment: the patient's symptoms have markedly improved after treatment, VSS. Pain and nausea markedly improved. Will discharge to home for continued monitoring. 06/27 15:21 Order name: COVID-19/FLU A+B (Document "Date of Onset" if Symptomatic); Complete Time: ss 18:54 06/27 18:42 Order name: Basic Metabolic Panel; Complete Time: 20:06 ld1 06/27 20:06 Interpretation: Normal except: GLUC 120; GFR 88. cp 06/27 18:42 Order name: CBC with Diff; Complete Time: 20:06 ld1 06/27 18:42 Order name: Hepatic Function; Complete Time: 20:06 ld1 06/27 18:42 Order name: Lipase; Complete Time: 20:06 ld1 06/27 18:42 Order name: Urine Microscopic Only; Complete Time: 20:06 ld1 06/27 18:46 Order name: Urine Dipstick-Ancillary; Complete Time: 18:54 EDMS 06/27 18:47 Order name: Urine --Ancillary (enter results); Complete Time: 18:54 cs9 06/27 19:59 Order name: CBC Smear Scan; Complete Time: 20:06 EDMS 06/27 20:07 Order name: CT Abd/Pelvis - IV Contrast Only; Complete Time: 20:54 cp 06/27 18:42 Order name: IV Saline Lock; Complete Time: 18:42 ld1 06/27 18:42 Order name: Labs collected and sent; Complete Time: 18:42 ld1 06/27 18:42 Order name: Urine Dipstick-Ancillary (obtain specimen); Complete Time: 18:43 ld1 06/27 18:42 Order name: Urine Test (obtain specimen); Complete Time: 18:43 ld1 06/27 20:55 Order name: PO challenge cp Administered Medications: 19:04 Drug: Zofran (Ondansetron) 4 mg Route: IVP; Site: right antecubital; ld1 19:04 Drug: morphine 4 mg Route: IVP; Site: right antecubital; ld1 19:04 Drug: NS 0.9% 1000 ml Route: IV; Rate: 1 bolus; Site: right antecubital; ld1 21:09 Drug: metroNIDAZOLE 500 mg Route: PO; mr2 21:09 Drug: Cipro (ciprofloxacin) 500 mg Route: PO; mr2 Disposition Summary: 06/27/21 21:33 Discharge Ordered Location: Home cp Problem: new cp Symptoms: have improved cp Condition: Stable cp Diagnosis - Indeterminate colitis cp - Diarrhea, unspecified cp Followup: cp - With: Darren Espinoza MD - When: 2 - 3 days - Reason: Recheck today's complaints Discharge Instructions: - Discharge Summary Sheet cp - Diarrhea, Adult cp - Colitis cp Forms: - Medication Reconciliation Form cp - Thank You Letter cp - Antibiotic Education cp - Prescription Opioid Use cp Prescriptions: - Zofran 4 mg Oral Tablet - take 1 tablet by ORAL route every 12 hours As needed; 20 tablet; Refills: 0, cp Product Selection Permitted - Cipro 500 mg Oral Tablet - take 1 tablet by ORAL route every 12 hours for 10 days; 20 tablet; Refills: 0, cp Product Selection Permitted - Metronidazole 500 mg Oral Tablet - take 1 tablet by ORAL route every 8 hours; 30 tablet; Refills: 0, Product cp Selection Permitted - dicyclomine 20 mg Oral Tablet - take 1 tablet by ORAL route 4 times per day; 30 tablet; Refills: 0, Product cp Selection Permitted Addendum: 06/30/2021 11:25 Co-signature as Attending Physician, Tobin escobedo dr Signatures: Dispatcher [employer] EDGA Tobin Kearns MD MD kdr Smirch, Shelby, RN RN Tristian Head PA PA cp Criselda Wan, SHERIN RN ld1 Raul Le RN RN mr2
[2021-06-27 22:27] VITALS: TEMP 98.6
[2021-06-27 22:28] VITALS: BP 128/58; O2SAT 98
== END 2021-06-27 22:20 | disposition home or self-care (01) ==
LOC: ER 14:58
DX: K52.3 Indeterminate colitis (principal); I10 Essential (primary) hypertension; Z20.822 Contact with and (suspected) exposure to COVID-19
CPT/HCPCS: 85025; 80048; 36415; 81025; 80076; 83690; 0240U; 74177; 96375; 96374; 99284; Q9967; J7030; J2405; 81003; 81015

== ENCOUNTER 2022-03-21 12:14 | Emergency (ER) | payer OTHER ==
--- OUTSIDE RECORDS SUMMARY | 2022-03-21 12:17 | XMS REPORT | Continuity of Care Document ---
:1980 Author Organization [facility] t Address [address] [place] [address] Care Team Providers Name Role Phone Gabriel Shoemaker Primary Care Physician FREDRICK GARBER Attending Clinician Unavailable Nurse, Adc Pob Immunization Attending Clinician Unavailable Fredrick Garber DO Attending Clinician EVAN HENSON Attending Clinician Unavailable Sierra Escobar RN Attending Clinician Therapy, c Covid Infusion Attending Clinician Unavailable Evan Henson MD Attending Clinician Doctor Unassigned, [place] Attending Clinician Unavailable Meena Patel Attending Clinician MEENA BRADFORD Attending Clinician Unavailable Payers Payer Name Policy Type Policy Number Effective Date Expiration Date S a[place] [employer] PPO GENERIC [id number] 2020 00:00:00 Problems Condition Condition Condition Status Onset Resolution Last Treating Co mments Source Name Details Category Date Date Treatment Clinician Date COVID-19 COVID-19 Disease Active Unive rs 1-15 ity of 00:00: [address] Pain Pain Disease Active Univers pelvic pelvic 3-23 ity of 00:00: [address] BV BV Disease Active Univers (bacterial (bacterial 3-22 it y of vaginosis[place]inosis[place] [facility] Screening Screening Disease Active Overview: [facility] for STD for STD 03-13 Formattin ity o f (sexually (sexually 00:00: [place] of [place] transmitte transmitte 00 note Me dical d disease) d disease) might be Branch different from the original. ICD10 Diagnosis Term Face Painter Utility Other and Other and Disease Active Uni vers unspecifie unspecifie 03-13 [place] of d ovarian d ovarian [place] cyst cyst [place] H/O tubal H/O tubal Disease Active Uni vers ligation ligation 03-13 ity of 00:00: [place] 00 [facility] Morbid Morbid Disease Active Univers obesity obesity 03-13 ity of 00:00: [address] Allergies, Adverse Reactions, Alerts Allergy Allergy Status Severity Reaction(s) Onset Inactive Treating Comm ents Source Name Type Date Date Clinician NO KNOWN Drug Active [facility] ALLERGIE Class ity of [facility] Social History Social Habit Start Date Stop Date Quantity Comments Source Exposure to Yes [facility] SARS-CoV-2 (event) Medica l Branch Alcohol intake 2020-07-29 2020-07-29 0 /d [facility] 00:00:00 00:00:00 [facility] Tobacco use and 2015-03-13 2015-03-13 Never used [facility] exposure 00:00:00 00:00:00 [facility] Sex Assigned At [birth year] [facility] 00:00:00 00:00:00 [facility] Smoking Status Start Date Stop Date Source Never smoker [facility] Medications Ordered Filled Start Stop Current [...] 1-26 mg by ity of 6.25 mg 13:37: mouth 2 [place] tablet 33 (two) Medical times Branch daily with meals. insulin Yes [id number] 10U inject 10 Univers glargine 1-26 Units ity of 100 unit/mL 00:00: under the [place] injection 00 skin at Medical bedtime. Branch insulin Yes [id number] 10U inject 10 Univers glargine 1-26 Units [...] by mouth ity of tablet 00:00: daily. [place] [facility] metformin 2019-07 Yes TAKE 1 TO Uni vers ER 500 mg 1-10 2 TABLETS ity o f 24 hr 00:00: BY MOUTH [place] tablet 00 TWICE Medical DAILY WITH Branch MEALS rosuvastati 2019-07 Yes 10mg Take 10 mg Univers n 10 mg 1-10 by mouth ity of tablet 00:00: daily. [place] [facility] proMETHazin 2015-07 Yes 25mg Take 1 Univ [...] for Pain for up to 20 doses. metroNIDAZO Yes [id number] 500mg Take 1 Tab Univers LE (FLAGYL) 3-22 by mouth 2 it y of 500 mg 00:00: (two) [place] tablet 00 times Medical daily. Branch metroNIDAZO Yes [id number] 500mg Take 1 Tab Univers LE (FLAGYL) 3-22 by mouth 2 it y of 500 mg 00:00: (two) [place] tablet 00 times Medical daily. Branch metroNIDAZO Yes [id number] 500mg Take 1 Tab Univers LE (FLAGYL) 3-22 by mouth 2 it y of 500 mg 00:00: (two) [place] tablet 00 times Medical daily. Branch metroNIDAZO Yes [id number] 500mg Take 1 Tab Univers LE (FLAGYL) 3-22 by mouth 2 it y of 500 mg 00:00: (two) [place] tablet 00 times Medical daily. Branch metroNIDAZO Yes [id number] 500mg Take 1 Tab Univers LE (FLAGYL) 3-22 by mouth 2 it y of 500 mg 00:00: (two) [place] tablet 00 times Medical daily. Branch carvedilol 2014-07 Yes 6.25mg Take 6.25 Univers (COREG) 1-06 mg by ity of 6.25 mg 01:38: mouth 2 [place] tablet 00 (two) Medical times [place] daily with meals. carvedilol 2014-07 Yes 6.25mg Take 6.25 Univers (COREG) 1-06 mg by ity of 6.25 mg 01:38: mouth 2 [place] tablet 00 (two) Medical times [place] daily with meals. Immunizations Ordered Filled Immunization Date Status Comments [facility] e Immunization Name Name SARS-COV-2 COVID-19 2021-07-09 Completed Unive rsity of PFIZER VACCINE 00:00:00 [facility] [place] SARS-COV-2 COVID-19 2020-11-16 Completed Unive rsity of PFIZER VACCINE 00:00:00 [facility] [place] SARS-COV-2 COVID-19 2020-10-26 Completed Unive rsity of PFIZER VACCINE 00:00:00 [facility] [place] TDAP 2008-10-30 Completed University of 00:00:00 [facility] TDAP 2008-10-30 Completed University of 00:00:00 [facility] TDAP 2008-10-30 Completed University of 00:00:00 [facility] TDAP 2008-10-30 Completed University of 00:00:00 [facility] TDAP 2008-10-30 Completed University of 00:00:00 [facility] Vital Signs Vital Name Observation Time Observation Value Comments Source Systolic blood 2020-07-30 00:16:00 135 mm[Hg] Univer sity of pressure [facility] Diastolic blood 2020-07-30 00:16:00 84 mm[Hg] Unive rsity of pressure [place] [facility] Heart rate 2020-07-30 00:16:00 112 /min [facility]i ty [facility] [place] [facility] Body temperature 2020-07-30 00:16:00 37.56 Kenisha Univ ersity of [place] [facility] Respiratory rate 2020-07-30 00:16:00 17 /min Univ ersity of [place] [facility] Body height 2020-07-30 00:16:00 149.9 cm Universi ty [facility] [place] [facility] Body weight 2020-07-30 00:16:00 97.523 kg [facility] ty [facility] [place] [facility] BMI 2020-07-30 00:16:00 43.42 kg/m2 Universi ty of [place] [facility] Oxygen saturation in 2020-07-30 00:16:00 96 /min University of Arterial blood by [facility] Pulse oximetry Branch Systolic blood 2020-07-30 00:16:00 135 mm[Hg] Univer sity of pressure [place] [facility] Diastolic blood 2020-07-30 00:16:00 84 mm[Hg] Unive rsity of pressure [place] [facility] Heart rate 2020-07-30 00:16:00 112 /min Universi ty [facility] [place] [facility] Body temperature 2020-07-30 00:16:00 37.56 [place]isha Univ ersity of [place] [facility] Respiratory rate 2020-07-30 00:16:00 17 /min Univ ersity of [place] [facility] Body height 2020-07-30 00:16:00 149.9 cm Universi ty [facility] [place] [facility] Body weight 2020-07-30 00:16:00 97.523 kg [facility] [place] [facility] BMI 2020-07-30 00:16:00 43.42 kg/m2 [facility]i ty [facility] [place] [facility] Oxygen saturation in 2020-07-30 00:16:00 96 /min University of Arterial blood by [facility] Pulse oximetry Branch Procedures Procedure Date / Time Performed Performing Clinician Sour e SARS-COV-2 COVID-19 2021-07-09 17:43:14 Doctor Unassigned, No [facility] [place] VACCINE,0.3ML,IM Name Medical Branch (PFIZER) SCANNED LAB RESULTS 2020-07-30 06:01:00 Doctor Unassigned, No [facility] [place] Name Medical Branch Encounters Start End Encounter Admission Attending Care Care Encounter Source Date/Time Date/Time Type Type Clinicians Facility Department ID 2021-05-17 Emergency [facility] [id number] Univers 17:35:02 ity [facility] 2021-07-09 2021-07-09 Outpatient R JOHANN [facility] [id number] Univers 11:10:00 11:10:03 FREDRICK itnaila [facility] 2021-07-09 2021-07-09 Imm/Inj Nurse, Adc Pob Immunization [facility] 1.2.840.114 [id number] Univers 11:10:00 11:10:03 Visit Fredrick Garber [id number] ity [id number] PROF[place] [phone] [place] dical [facility] [address] [facility] 2020-11-16 2020-11-16 Outpatient [facility] [id number] Univers 08:35:00 08:35:00 ity [facility] 2020-11-16 2020-11-16 Outpatient [facility] [id number] Univers 08:05:00 08:05:00 ity [facility] 2020-10-26 2020-10-26 Outpatient R SARAH BETH [facility] [id number] Univers 08:10:00 08:10:00 [facility] 2020-08[facility]14 2020-08-14 Transition Hansel Escobar 1.2.840.114 [id number] 00:00:00 00:00:00 of Care Sierra Posey [id number] [place] [id number] 2020-08-14 2020-08-14 Transition Hansel Escobar [id number] Univers 00:00:00 00:00:00 of Care Sierra Posey [id number] i ty of [id number] [phone] [facility] 403 Branch 2020-08-02 2020-08-02 Outpatient R [facility] [id number] Univers 12:00:00 12:00:00 [id number] ity [facility] 2020-08-02 2020-08-02 Outpatient R SARAH BETH [facility] [id number] Univers 12:00:00 12:00:00 EVAN ity [facility] 2020-08-02 2020-08-02 Nurse Therapy, [facility] 1.2.840.114 [id number] 07:34:01 09:04:01 Visit [facility] Covid SPECIALTY [id number] Infusion CARE [id number] CENTER AT [id number] [address] 2020-08-02 2020-08-02 Nurse Therapy, [facility] Covid Infusion [facility] 1.2.840.114 [id number] [facility] 07:34:01 09:04:01 Visit Evan Henson SPECIALTY [id number] ity of C[id number] C[place] AT [phone] [address] 2020-07-30 2020-07-30 Orders Doctor PRAVEENA 1.2.840.114 [id number] 00:00:00 00:00:00 Only Unassigned, ELI [id number] [place] [facility] [id number] [facility] 2020-07-30 2020-07-30 Orders Doctor PRAVEENA 1.2.840.114 [id number] Univers 00:00:00 00:00:00 Only Unassigned, ELI [id number] ity of [place] [facility] [id number] [place] as [id number] [address] 2020-07-29 2020-07-29 [facility] 1.2.840.114 [id number] 18:12:39 18:32:39 Care [facility] [id number] [place] [id number] Professio [phone] [place] [address] 2020-07-29 2020-07-29 [facility] 1.2.840.114 [id number] [facility] 18:12:39 18:32:39 Care [facility] [id number] it y of [place] [id number] [place] as Professio [phone] [place] [address] Branch Office [facility] 2020-07-29 2020-07-29 Outpatient R SUZETTE [facility] [id number] Univers 18:20:00 18:20:00 MEENA [place]on [facility] Results This patient has no known results.
[2022-03-21 13:23] LABS: Urine Blood 1+ (Negative); Urine Glucose 2+ (Negative); Urine Protein Trace (Negative); Urine Specific Gravity 1.015 (1.005-1.030)
[2022-03-21 13:55] LABS: Absolute Lymphocytes (CBC) 2.9 K/uL (0.7-4.9); Hematocrit 37.4 % (36.0-45.0); Lymphocytes % 34.5 % (15.3-44.8); MCV 89.9 fL (80-100); RBC Red Blood Cell Count 4.16 M/uL (3.86-4.86)
[2022-03-21] MEDS ORDERED: NA CHLORIDE 0.9% 1,000 ML ONE (15:15)
[2022-03-21 15:26] LABS: BUN Blood Urea Nitrogen 11 mg/dL (7-18); Bicarbonate 24 mmol/L (21-32); Glomerular Filtration Rate 97 ml/min (=/>90)
[2022-03-21 15:27] LABS: Glucose Level 417 mg/dL (74-106); Potassium ND mmol/L (3.5-5.1)
[2022-03-21 15:28] LABS: Sodium Level 132 mmol/L (136-145)
[2022-03-21] MEDS ORDERED: INSULIN -REGULAR HUMAN 50 UNIT/0.5 ML ML ONE (15:47)
--- NOTE | 2022-03-21 17:24 | EDPHYS ---
Physician Documentation [facility] Name: Celina Meeks Age: 41 yrs Sex: Female : 1980 Arrival Date: 03/21/2022 Time: 12:15 Bed 18 Private MD: Gabriel Shoemaker B ED Physician Tobin Kearns HPI: 03/21 18:23 This 41 yrs old Female presents to ER via Ambulatory with complaints of High kb Blood Sugar. 18:23 The patient or guardian reports hyperglycemia. Onset: The symptoms/episode kb began/occurred yesterday. Associated signs and symptoms: Pertinent positives: polydipsia, polyuria. Current symptoms: In the emergency department the patient's symptoms are unchanged from the initial presentation. The patient has experienced similar episodes in the past. The patient has not recently seen a physician. Patient reports she checked her blood sugar last night and it was over 500. She took 10 units of her father's insulin and rechecked her sugar a couple of times before going to bed. States sugar never got below 500 last night. Woke up this morning rechecked it it was in the 300s so she came in. States she has been out of her insulin pen, unable to refill it due to financial reasons. Also takes metformin for diabetes. Metformin is prescribed for twice a day but patient only takes it 1 time a day.. 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: 13:00 LMP N/A - Irregular menses iw Historical: - Allergies: 13:00 No Known Allergies; iw - Home Meds: 13:00 metformin 500 mg Oral tab 1 tab 2 times per day [Active]; gemfibrozil 600 mg Oral tab 1 iw tab 2 times per day [Active]; rosuvastatin 10 mg Oral tab 1 tab once daily [Active]; control pill [Active]; atorvastatin 40 mg Oral tab 1 tab once daily [Active]; - PMHx: 13:00 Diabetes mellitus; Hypertensive disorder; iw - PSHx: 13:00 section; Cholecystectomy; iw - Immunization history:: Adult Immunizations up to date, Client reports receiving the 2nd dose of the Covid vaccine, Client reports receiving the 1st dose of the Covid vaccine. - Social history:: Smoking status: Patient denies any tobacco usage or history of. ROS: 18:23 Constitutional: Negative for fever, chills, and weight loss. kb 18:23 Endocrine: Positive for polydipsia, polyuria. 18:23 All other systems are negative. Exam: 18:23 Constitutional: This is a well developed, well nourished patient who is awake, alert, kb and in no acute distress. Head/Face: Normocephalic, atraumatic. ENT: Moist Mucous membranes Cardiovascular: Regular rate and rhythm with a normal S1 and S2. No gallops, murmurs, or rubs. No pulse deficits. Respiratory: Respirations even and unlabored. No increased work of breathing. Talking in full sentences Abdomen/GI: Soft, non-tender. No distention Skin: Warm, dry with normal turgor. Normal color. MS/ Extremity: Pulses equal, no cyanosis. Neurovascular intact. Full, normal range of motion. Neuro: Awake and alert, GCS 15, oriented to person, place, time, and situation. Moves all extremities. Normal gait. Psych: Awake, alert, with orientation to person, place and time. Behavior, mood, and affect are within normal limits. 18:38 ECG was reviewed by the Attending Physician. Vital Signs: 12:57 BP 127 / 65; Pulse 90; Resp 16; Temp 98.1(O); Pulse Ox 100% on R/A; Weight 86.18 kg iw (R); Height 4 ft. 11 in. (149.86 cm); Pain 0/10; 13:58 BP 127 / 61; Pulse 78; Resp 16; Pulse Ox 97% ; Pain 0/10; mb8 14:43 BP 116 / 52; Pulse 81; Resp 16; Pulse Ox 97% ; Pain 0/10; mb8 15:43 BP 106 / 59; Pulse 85; Resp 18; Pulse Ox 98% ; Pain 0/10; mb8 12:57 Body Mass Index 38.37 (86.18 kg, 149.86 cm) iw MDM: 13:00 Patient medically screened. kb 18:23 Data reviewed: vital signs, nurses notes. Data interpreted: Pulse oximetry: on room air kb is 98 %. Interpretation: normal. Counseling: I had a detailed discussion with the patient and/or guardian regarding: the historical points, exam findings, and any diagnostic results supporting the discharge/admit diagnosis, lab results, the need for outpatient follow up, a family practitioner, to return to the emergency department if symptoms worsen or persist or if there are any questions or concerns that arise at home. 18:25 ED course: Patient educated to take her metformin twice daily as prescribed and to kb follow-up with her family doctor for adjustments of medications. Possible new insulin that is more affordable.. 03/21 13:06 Order name: CBC with Diff; Complete Time: 14:19 kb 03/21 13:06 Order name: Basic Metabolic Panel; Complete Time: 15:32 kb 03/21 13:06 Order name: Acetone, Serum; Complete Time: 15:32 kb 03/21 13:16 Order name: Glucose, Ancillary Testing; Complete Time: 13:18 EDMS 03/21 13:24 Order name: Urine Dipstick-Ancillary; Complete Time: 13:32 EDMS 03/21 15:52 Order name: Glucose, Ancillary Testing; Complete Time: 15:57 EDMS 03/21 13:06 Order name: IV Start; Complete Time: 13:26 kb 03/21 13:06 Order name: Urine Dipstick-Ancillary (obtain specimen); Complete Time: 13:26 kb 03/21 13:31 Order name: Labs - recollect needed: recollect all blood lipemic protocol/ inside lab eb paged for draw; Complete Time: 13:41 03/21 16:28 Order name: EKG; Complete Time: 16:28 kb 03/21 16:28 Order name: EKG - Nurse/Tech; Complete Time: 17:03 kb 03/21 16:37 Order name: Glucose, Ancillary Testing; Complete Time: 16:53 EDMS EC:38 Rate is 73 beats/min. Rhythm is regular. QRS Raysal is Normal. MN interval is normal at kb 170 msec. QRS interval is normal at 84 msec. QT interval is normal at 418 msec. Administered Medications: 15:09 Drug: NS 0.9% 1000 ml Route: IV; Rate: 1000 ml; Site: right antecubital; mb8 16:00 Follow up: Response: No adverse reaction; IV Status: Completed infusion mb8 15:42 Drug: Insulin Regular Human 5 units {Co-Signature: [email or web address] (Doroteo Flores RN).} Route: mb8 IVP; Site: right antecubital; 17:31 Follow up: Response: No adverse reaction; Marked relief of symptoms mb8 Point of Care Testing: Blood Glucose: 13:02 Blood Glucose: 427 mg/dL; iw Ranges: Critical Glucose Levels:Adult <50 mg/dl or >400 mg/dl <40 mg/dl or >180 mg/dl Disposition: 03/22 11:55 Co-signature as Attending Physician, Tobin Kearns MD I agree with the assessment and kdr plan of care. Disposition Summary: 03/21/22 17:23 Discharge Ordered Location: Home kb Condition: Stable kb Diagnosis - Hyperglycemia, unspecified kb Followup: kb - With: Emergency Department - When: As needed - Reason: Worsening of condition Followup: kb - With: Private Physician - When: 2 - 3 days - Reason: Recheck today's complaints, Continuance of care, Re-evaluation by your physician Discharge Instructions: - Discharge Summary Sheet kb - Hyperglycemia, [id number] kb - Type 2 Diabetes Mellitus, Diagnosis, Adult, [id number] kb Forms: - Medication Reconciliation Form kb - Thank You Letter kb - Antibiotic Education kb - Prescription Opioid Use kb Signatures: Dispatcher [employer] EDMS Judith Rios, ROUTE INSPECTOR-C ROUTE INSPECTOR-Ckb Tobin Kearns MD MD kdr Meenakshi Alvarenga, RN RN Zelda Pleitez Michael, RN RN mb8 Doroteo Flores RN jd3 Corrections: (The following items were deleted from the chart) 03/21 13:01 13:00 PMHx: Diabetes - NIDDM; [facility] 13:00 PMHx: Hypertension; [facility] 13:00 PMHx: Hyperlipidemia; [facility] 13:00 PMHx: Ovarian cysts; [facility] 13:00 PMHx: gastritis; [facility] 13:00 PSHx: None; [facility]
--- NOTE | 2022-03-21 17:24 | ER ---
Nurse's Notes [facility] Name: Celina Meeks Age: 41 yrs Sex: Female : 1980 Arrival Date: 03/21/2022 Time: 12:15 Bed 18 Private MD: Gabriel Shoemaker B Diagnosis: Hyperglycemia, unspecified Presentation: 03/21 12:58 Chief complaint: Patient states: I havent been able to afford my insulin for the past iw few weeks. Last night I checked my blood sugar and it was 525. My dad gave me some of his insulin and I took 10 units of it. I dont know what kind of insulin it was. I rechecked my blood sugar this morning and it was 392. Coronavirus screen: At this time, the client does not indicate any symptoms associated with coronavirus-19. Ebola Screen: No symptoms or risks identified at this time. Initial Sepsis Screen: Does the patient meet any 2 criteria? No. Patient's initial sepsis screen is negative. Does the patient have a suspected source of infection? No. Patient's initial sepsis screen is negative. Risk Assessment: Do you want to hurt yourself or someone else? Patient reports no desire to harm self or others. Onset of symptoms was March 20, 2022. 12:58 Method Of Arrival: Ambulatory iw 12:58 Acuity: HAY 3 iw Triage Assessment: 13:00 General: Appears in no apparent distress. comfortable, Behavior is calm, cooperative, iw appropriate for age. Pain: Denies pain. EENT: No deficits noted. No signs and/or symptoms were reported regarding the EENT system. Neuro: No deficits noted. Cardiovascular: No deficits noted. Respiratory: No deficits noted. GI: No deficits noted. No signs and/or symptoms were reported involving the gastrointestinal system. : No deficits noted. No signs and/or symptoms were reported regarding the genitourinary system. Derm: No deficits noted. No signs and/or symptoms reported regarding the dermatologic system. Musculoskeletal: No deficits noted. No signs and/or symptoms reported regarding the musculoskeletal system. 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: 13:00 LMP N/A - Irregular menses iw Historical: - Allergies: 13:00 No Known Allergies; iw - Home Meds: 13:00 metformin 500 mg Oral tab 1 tab 2 times per day [Active]; gemfibrozil 600 mg Oral tab 1 iw tab 2 times per day [Active]; rosuvastatin 10 mg Oral tab 1 tab once daily [Active]; control pill [Active]; atorvastatin 40 mg Oral tab 1 tab once daily [Active]; - PMHx: 13:00 Diabetes mellitus; Hypertensive disorder; iw - PSHx: 13:00 section; Cholecystectomy; iw - Immunization history:: Adult Immunizations up to date, Client reports receiving the 2nd dose of the Covid vaccine, Client reports receiving the 1st dose of the Covid vaccine. - Social history:: Smoking status: Patient denies any tobacco usage or history of. Screenin:28 Abuse screen: Denies threats or abuse. Denies injuries from another. Nutritional mb8 screening: No deficits noted. Tuberculosis screening: No symptoms or risk factors identified. Fall Risk None identified. Assessment: 13:15 General: Appears in no apparent distress. comfortable, Behavior is calm, cooperative, mb8 appropriate for age, Denies fever, chills. Pain: Denies pain. Cardiovascular: Denies chest pain, diaphoresis, nausea, palpitations, shortness of breath, Pulses are all present. Chest pain is denied. GI: Patient currently denies diarrhea, nausea, vomiting. GI: Reports increased thirst. : Reports urinary frequency. 14:43 Reassessment: No changes from previously documented assessment. Patient and/or family mb8 updated on plan of care and expected duration. Pain level reassessed. Patient is alert, oriented x 3, equal unlabored respirations, skin warm/dry/pink. 15:44 Reassessment: Patient and/or family updated on plan of care and expected duration. Pain mb8 level reassessed. Patient is alert, oriented x 3, equal unlabored respirations, skin warm/dry/pink. Vital Signs: 12:57 BP 127 / 65; Pulse 90; Resp 16; Temp 98.1(O); Pulse Ox 100% on R/A; Weight 86.18 kg iw (R); Height 4 ft. 11 in. (149.86 cm); Pain 0/10; 13:58 BP 127 / 61; Pulse 78; Resp 16; Pulse Ox 97% ; Pain 0/10; mb8 14:43 BP 116 / 52; Pulse 81; Resp 16; Pulse Ox 97% ; Pain 0/10; mb8 15:43 BP 106 / 59; Pulse 85; Resp 18; Pulse Ox 98% ; Pain 0/10; mb8 12:57 Body Mass Index 38.37 (86.18 kg, 149.86 cm) iw ED Course: 12:15 Patient arrived in ED. am2 12:15 Gabriel Shoemaker MD is Private Physician. am2 13:00 Triage completed. iw 13:00 Judith Rios FNP-C [facility]. kb 13:00 Tobin Kearns MD is Attending Physician. kb 13:00 Arm band placed on right wrist. iw 13:05 Link Carlos RN is Primary Nurse. mb8 13:15 No provider procedures requiring assistance completed. Inserted saline lock: 20 gauge mb8 in right antecubital area, using aseptic technique. Blood collected. 13:26 CBC with Diff Sent. mb8 13:26 Basic Metabolic Panel Sent. mb8 13:26 Acetone, Serum Sent. mb8 13:28 Patient has correct armband on for positive identification. mb8 13:41 Acetone, Serum Sent. mb8 13:41 Basic Metabolic Panel Sent. mb8 13:41 CBC with Diff Sent. mb8 17:30 IV discontinued, intact, bleeding controlled, No redness/swelling at site. Pressure mb8 dressing applied. Administered Medications: 15:09 Drug: NS 0.9% 1000 ml Route: IV; Rate: 1000 ml; Site: right antecubital; mb8 16:00 Follow up: Response: No adverse reaction; IV Status: Completed infusion mb8 15:42 Drug: Insulin Regular Human 5 units {Co-Signature: [email or web address] (Doroteo Flores RN).} Route: mb8 IVP; Site: right antecubital; 17:31 Follow up: Response: No adverse reaction; Marked relief of symptoms mb8 Medication: 13:28 VIS not applicable for this client. mb8 Point of Care Testing: Blood Glucose: 13:02 Blood Glucose: 427 mg/dL; iw Ranges: Outcome: 17:23 Discharge ordered by . kb 17:30 Discharged to home ambulatory, with family. mb8 17:30 Condition: stable 17:30 Discharge instructions given to patient, Instructed on discharge instructions, follow up and referral plans. medication usage, Demonstrated understanding of instructions, follow-up care, medications. 17:31 Patient left the ED. mb8 Signatures: Judith Rios FNP-C FNP-Ckb Meenakshi Alvarenga, RN RN iw Ciera Hardy am2 Link Carlos RN RN mb8 Doroteo Flores RN jd3 Corrections: (The following items were deleted from the chart) 13:00 PMHx: Diabetes - NIDDM; 13:00 PMHx: Hypertension; 13:00 PMHx: Hyperlipidemia; 13:00 PMHx: Ovarian cysts; 13:00 PMHx: gastritis; 13:00 PSHx: None; iw iw
[2022-03-21 20:19] VITALS: TEMP 98.1
[2022-03-21 20:29] VITALS: BP 106/59; O2SAT 98
--- NOTE | 2022-03-22 08:59 | EKG ---
Test Date: 2022-03-21 Test Time: 17:06:46 Legal Recovery Specialist: TITO MEASUREMENT RESULTS: Intervals: Rate: 73 SD: 170 QRSD: 84 QT: 380 QTc: 418 [place]: P: 23 SD: 170 QRS: 56 T: 71 INTERPRETIVE STATEMENTS: Normal sinus rhythm Normal ECG Compared to ECG 12/09/2020 08:42:33 Left ventricular hypertrophy no longer present T-wave abnormality no longer present Electronically Signed On 03-22-22 08:58:30 CDT by David Beard
== END 2022-03-21 17:31 | disposition home or self-care (01) ==
LOC: ER 12:14
DX: E11.65 Type 2 diabetes mellitus with hyperglycemia (principal); I10 Essential (primary) hypertension
CPT/HCPCS: 96361; 93005; 85025; 80048; 36415; 82010; 82947 ×3; 81003; 96374; 99284; J1815; J7030

== ENCOUNTER 2022-08-24 17:32 | Emergency (ER) | payer OTHER ==
--- OUTSIDE RECORDS SUMMARY | 2022-08-24 17:36 | XMS REPORT | Continuity of Care Document ---
:1980 Author Organization [facility] t Address [address] [place] [address] Care Team Providers Name Role Phone USHA THOMAS Primary Care Physician Unavailable FREDRICK GARBER Attending Clinician Unavailable Nurse, Adc Pob Immunization Attending Clinician Unavailable Fredrick Garber DO Attending Clinician EVAN HENSON Attending Clinician Unavailable Sierra Escobar RN Attending Clinician SHARON LILLY Attending Clinician Unavailable Therapy, c Covid Infusion Attending Clinician Unavailable Evan Henson MD Attending Clinician Doctor Unassigned, [place] Attending Clinician Unavailable Meena Patel Attending Clinician MEENA BRADFORD Attending Clinician Unavailable SHARON LILLY Admitting Clinician Unavailable Payers Payer Name Policy Type Policy Number Effective Date Expiration Date S oursirisha [employer] PPO GENERIC [id number] 2020 00:00:00 Problems Condition Condition Condition Status Onset Resolution Last Treating Co mments Source Name Details Category Date Date Treatment Clinician Date COVID-19 COVID-19 Disease Active Unive rs 1-15 ity of 00:00: [address] Pain Pain Disease Active Univers pelvic pelvic 3-23 ity of 00:00: [address] BV BV Disease Active Univers (bacterial (bacterial 3-22 it y of vaginosis) vaginosis) 00:00: [address] Screening Screening Disease Active Overview: Univers for STD for STD 03-13 [place] ity o f (sexually (sexually 00:00: g of this [place] transmitte transmitte 00 note Me dical d disease) d disease) might be Branch different from the original. ICD10 Diagnosis Term Bond Underwriter Utility Other and Other and Disease Active Uni vers unspecifie unspecifie 03-13 [place] of d ovarian d ovarian [place] 00 [facility] H/O tubal H/O tubal Disease Active Uni vers ligation ligation 03-13 ity of 00:00: [place] [facility] Morbid Morbid Disease Active Univers obesity obesity 03-13 ity of 00:00: [address] Allergies, Adverse Reactions, Alerts Allergy Allergy Status Severity Reaction(s) Onset Inactive Treating Comm ents Source Name Type Date Date Clinician NO KNOWN Drug Active [facility] ALLERGIE Class ity of [facility] Social History Social Habit Start Date Stop Date Quantity Comments Source Exposure to Yes [facility] SARS-CoV-2 (event) Medica l Branch Alcohol intake 2020-07-29 2020-07-29 0 /d [facility] 00:00:00 00:00:00 [facility] Tobacco use and 2015-03-13 2015-03-13 Never used [facility] exposure 00:00:00 00:00:00 [facility] Sex Ass[birth year] [facility] 00:00:00 00:00:00 [facility] Smoking Status Start Date Stop Date Source Never smoker [facility] Medications Ordered Filled Start Stop [...] times Branch daily with meals. insulin Yes [id number] 10U inject 10 Univers glargine 1-26 Units ity of 100 unit/mL 00:00: under the [place] injection 00 skin at Medical bedtime. Branch insulin Yes [id number] 10U inject 10 Univers glargine 1-26 Units [...] by mouth ity of tablet 00:00: daily. [facility] Branch metformin 2019-07 Yes TAKE 1 TO Uni vers ER 500 mg 1-10 2 TABLETS ity o f 24 hr 00:00: BY MOUTH [place] tablet 00 TWICE Medical DAILY WITH Branch MEALS rosuvastati 2019-07 Yes 10mg Take 10 mg Univers n 10 mg 1-10 by mouth ity of tablet 00:00: daily. [facility] Branch proMETHazin 2015-07 Yes 25mg Take 1 [...] for up to 20 doses. metroNIDAZO Yes [id number] 500mg Take 1 Tab Univers LE (FLAGYL) 3-22 by mouth 2 it y of 500 mg 00:00: (two) [place] tablet 00 times Medical daily. Branch metroNIDAZO Yes [id number] 500mg Take 1 Tab Univers LE (FLAGYL) 3-22 by mouth 2 it y of 500 mg 00:00: (two) [place] tablet 00 times Medical daily. Branch metroNIDAZO Yes [id number] 500mg Take 1 Tab Univers LE (FLAGYL) 3-22 by mouth 2 it y of 500 mg 00:00: (two) [place] tablet 00 times Medical daily. Branch metroNIDAZO Yes [id number] 500mg Take 1 Tab Univers LE (FLAGYL) 3-22 by mouth 2 it y of 500 mg 00:00: (two) [place] tablet 00 times Medical daily. Branch metroNIDAZO Yes [id number] 500mg Take 1 Tab Univers LE (FLAGYL) 3-22 by mouth 2 it y of 500 mg 00:00: (two) [place] tablet 00 times Medical daily. Branch carvedilol 2014-07 Yes 6.25mg Take 6.25 Univers (COREG) 1-06 mg by ity of 6.25 mg 01:38: mouth 2 [place] tablet 00 (two) Medical times [place] daily with meals. carvedilol 2014-07 Yes 6.25mg Take 6.25 Univers (COREG) 1-06 mg by ity of 6.25 mg 01:38: mouth 2 [place] tablet 00 (two) Medical times [place] daily with meals. Immunizations Ordered Filled Immunization Date Status Comments [facility] e Immunization Name Name SARS-COV-2 COVID-19 2021-07-09 Completed Unive rsity of PFIZER VACCINE 00:00:00 [facility] SARS-COV-2 COVID-19 2020-11-16 Completed Unive rsity of PFIZER VACCINE 00:00:00 [facility] SARS-COV-2 COVID-19 2020-10-26 Completed Unive rsity of PFIZER VACCINE 00:00:00 [facility] TDAP 2008-10-30 Completed University 00:00:00 [facility] TDAP 2008-10-30 Completed University 00:00:00 [facility] TDAP 2008-10-30 Completed University of 00:00:00 [facility] TDAP 2008-10-30 Completed [place] of 00:00:00 [facility] TDAP 2008-10-30 Completed [facility] 00:00:00 [facility] Vital Signs Vital Name Observation Time Observation Value Comments Source Systolic blood 2020-07-30 00:16:00 135 mm[Hg] Univer sity of pressure [place] [facility] Diastolic blood 2020-07-30 00:16:00 84 mm[Hg] Unive rsity of pressure [place] [facility] [place] Heart rate 2020-07-30 00:16:00 112 /min Universi ty of [facility] Body temperature 2020-07-30 00:16:00 37.56 Kenisha Univ ersity of [facility] Branch Respiratory rate 2020-07-30 00:16:00 17 /min Univ ersity of [place] [facility] [place] Body height 2020-07-30 00:16:00 149.9 cm Universi ty [facility] [place] [facility] Body weight 2020-07-30 00:16:00 97.523 kg Universi ty of [place] [facility] BMI 2020-07-30 00:16:00 43.42 kg/m2 Universi ty of [place] [facility] Oxygen saturation in 2020-07-30 00:16:00 96 /min University of Arterial blood by [facility] [place] [facility] Pulse oximetry Branch Systolic blood 2020-07-30 00:16:00 135 mm[Hg] Univer sity of pressure [place] [facility] [place] Diastolic blood 2020-07-30 00:16:00 84 mm[Hg] Unive rsity of pressure [facility] Heart rate 2020-07-30 00:16:00 112 /min Universi ty [facility] [place] [facility] Body temperature 2020-07-30 00:16:00 37.56 Kenisha Univ ersity of [facility] Respiratory rate 2020-07-30 00:16:00 17 /min Univ ersity of [place] [facility] [place] Body height 2020-07-30 00:16:00 149.9 cm Universi ty [facility] [place] [facility] Body weight 2020-07-30 00:16:00 97.523 kg [facility]i ty [facility] [place] [facility] BMI 2020-07-30 00:16:00 43.42 kg/m2 Universi ty [facility] [place] [facility] Oxygen saturation in 2020-07-30 00:16:00 96 /min University of Arterial blood by [facility] [place] [facility] Pulse oximetry Branch Procedures Procedure Date / Time Performed Performing Clinician [facility] e SARS-COV-2 COVID-19 2021-07-09 17:43:14 Doctor Unassigned, No Un iversity of [place] VACCINE,0.3ML,IM Name Medical Branch (PFIZER) SCANNED LAB RESULTS 2020-07-30 06:01:00 Doctor Unassigned, No [facility] [place] Name [facility] Encounters Start End Encounter Admission Attending Care Care Encounter Source Date/Time Date/Time Type Type Clinicians Facility Department ID 2021-07-09 2021-07-09 Outpatient R JOHANN [facility] [id number] Univers 11:10:00 11:10:03 FREDRICK itnaila [facility] 2021-07-09 2021-07-09 Imm/Inj Nurse, Adc Pob Immunization [facility] [id number] Univers 11:10:00 11:10:03 Visit Johann Fredrick Jorje [facility] [id number] .[facility] [id number] [place] PROFESS[place] [phone] Ca dical NAL [address] Branch BUILDING 2020-11-16 2020-11-16 Outpatient [facility] [id number] Univers 08:35:00 08:35:00 ity [facility] 2020-11-16 2020-11-16 Outpatient [facility] [id number] Univers 08:05:00 08:05:00 ity [facility] 2020-10-26 2020-10-26 Outpatient R SARAH BETH [facility] [id number] Univers 08:10:00 08:10:00 [facility]-08[facility]14 2020-08-14 Transition Hansel Escobar [id number] 00:00:00 00:00:00 of [place] [id number] [place] [id number] [facility] 2020-08-14 2020-08-14 Transition Hansel Escobar [id number] Univers 00:00:00 00:00:00 of Care Sierra [place] [id number] i ty of [id number] [place] [phone] [address] 2020-08-02 2020-08-13 Inpatient X SHARON LILLY [facility] [id number] Univers 12:35:00 13:37:00 ity [facility] 2020-08-02 2020-08-02 Outpatient R SARAH BETH [facility] [id number] Univers 12:00:00 12:00:00 EVAN norton [facility] 2020-08-02 2020-08-02 Nurse Therapy, [facility] [id number] 07:34:01 09:04:01 Visit [facility] Covid SPECIALTY [id number] Infusion CARE [id number] CENTER AT [phone] [address] 2020-08-02 2020-08-02 Nurse Therapy, [facility] Covid Infusion [facility] 1.2.840.114 [id number] [facility] 07:34:01 09:04:01 Visit Evan Henson SPECIALTY [id number] ity of CARE [id number] [place] CENTER AT [phone] [address] 2020-07-30 2020-07-30 Orders Doctor PRAVEENA 1.2.840.114 [id number] 00:00:00 00:00:00 Only Unassigned, ELI [id number] [place] [facility] [id number] [facility] 2020-07-30 2020-07-30 Orders Doctor PRAVEENA [id number] Univers 00:00:00 00:00:00 Only Unassigned, ELI [id number] ity of [place] [facility] [id number] [place] as [id number] [address] 2020-07-29 2020-07-29 [facility] [id number] 18:12:39 18:32:39 Care [facility] [id number] [place] [id number] Professio [id number] [address] 2020-07-29 2020-07-29 [facility] [id number] Univers 18:12:39 18:32:39 Care [facility] [id number] it y of [place] [id number] [place] as Professio [phone] [place] [address] Branch [address] 2020-07-29 2020-07-29 Outpatient Esther BRADFORD [facility] [id number] [facility] 18:20:00 18:20:00 MEENA norton [facility] Results This patient has no known results.
--- NOTE | 2022-08-24 18:24 | RAD REPORT ---
EXAM DESCRIPTION: Stacey Roblero And Lat (2 Views)08/24/2022 6:19 pm CLINICAL HISTORY: Cough COMPARISON: 2020 FINDINGS: The lungs appear clear of acute infiltrate. The heart is normal size IMPRESSION: No acute abnormalities displayed
[2022-08-24 18:53] LABS: SARS-COV-2 RT PCR NEGATIVE (NEGATIVE)
--- NOTE | 2022-08-24 19:54 | EDPHYS ---
Physician Documentation [facility] Name: Celina Meeks Age: 42 yrs Sex: Female : 1980 Arrival Date: 08/24/2022 Time: 17:35 Bed 11 Private MD: ED Physician Belén Schmidt HPI: 08/24 18:59 This 42 yrs old Female presents to ER via Ambulatory with complaints of Flu kb Symptoms, Breathing Difficulty, Weakness. 18:59 The patient or guardian reports cough, that is intermittent, described as moderate, flu kb symptoms, low-grade fever, myalgias. Onset: The symptoms/episode began/occurred 4 day(s) ago. Severity of symptoms: At their worst the symptoms were moderate, in the emergency department the symptoms are unchanged. Modifying factors: The symptoms are alleviated by nothing, the symptoms are aggravated by nothing. Associated signs and symptoms: Pertinent positives: fever, rhinorrhea. The patient has not experienced similar symptoms in the past. The patient has not recently seen a physician. Patient reports cough, congestion, fever, body aches, chills for 4 days. Reports she was having some chest tightness and wheezing yesterday.. Historical: - Allergies: 18:01 No Known Allergies; ph - Home Meds: 18:01 metformin 500 mg Oral tab 1 tab 2 times per day [Active]; atorvastatin 40 mg Oral tab 1 ph tab once daily [Active]; gemfibrozil 600 mg Oral tab 1 tab 2 times per day [Active]; rosuvastatin 10 mg Oral tab 1 tab once daily [Active]; - PMHx: 18:01 diabetes mellitus; Hypertensive disorder; ph - PSHx: 18:01 section; Cholecystectomy; ph - Immunization history:: Adult Immunizations unknown. - Social history:: Smoking status: Patient denies any tobacco usage or history of. ROS: 18:59 Abdomen/GI: Negative for abdominal pain, nausea, vomiting, diarrhea, and constipation. kb 18:59 Constitutional: Positive for body aches, chills, fatigue, fever, malaise. 18:59 ENT: Positive for rhinorrhea, sinus congestion. 18:59 Respiratory: Positive for cough, Negative for dyspnea on exertion, hemoptysis, orthopnea, pleurisy, shortness of breath, sputum production, wheezing. 18:59 All other systems are negative. Exam: 18:59 Constitutional: This is a well developed, well nourished patient who is awake, alert, kb and in no acute distress. Head/Face: Normocephalic, atraumatic. ENT: Moist Mucous membranes Cardiovascular: Regular rate and rhythm with a normal S1 and S2. No gallops, murmurs, or rubs. No pulse deficits. Respiratory: Respirations even and unlabored. No increased work of breathing. Talking in full sentences Abdomen/GI: Soft, non-tender. No distention Skin: Warm, dry with normal turgor. Normal color. MS/ Extremity: Pulses equal, no cyanosis. Neurovascular intact. Full, normal range of motion. Neuro: Awake and alert, GCS 15, oriented to person, place, time, and situation. Moves all extremities. Normal gait. Psych: Awake, alert, with orientation to person, place and time. Behavior, mood, and affect are within normal limits. 19:53 ECG was reviewed by the Attending Physician. kb Vital Signs: 17:59 BP 157 / 98; Pulse 91; Resp 20; Temp 98.1; Pulse Ox 98% on R/A; Weight 89.36 kg; Height ph 4 ft. 11 in. (149.86 cm); 19:55 BP 157 / 86; Pulse 86; Resp 20; Pulse Ox 100% ; mb9 17:59 Body Mass Index 39.79 (89.36 kg, 149.86 cm) ph MDM: 17:55 Patient medically screened. kb 19:00 Differential Diagnosis: Bronchitis Influenza Upper Respiratory Infection Viral kb Syndrome. Data reviewed: vital signs, nurses notes. I considered the following discharge prescriptions or medication management in the emergency department I discussed and recommended Over The Counter medications, Antibiotics: At this time antibiotics are not recommended. Counseling: I had a detailed discussion with the patient and/or guardian regarding: the historical points, exam findings, and any diagnostic results supporting the discharge/admit diagnosis, lab results, radiology results, the need for outpatient follow up, a family practitioner, to return to the emergency department if symptoms worsen or persist or if there are any questions or concerns that arise at home. 08/24 18:04 Order name: COVID-19/FLU A+B/RSV; Complete Time: 18:57 kb 08/24 18:04 Order name: Chest Pa And Lat (2 Views) XRAY; Complete Time: 18:35 kb 08/24 18:04 Order name: EKG; Complete Time: 18:05 kb 08/24 18:04 Order name: EKG - Nurse/Tech; Complete Time: 19:47 kb EC:53 Rate is 76 beats/min. Rhythm is regular. QRS Holden is Normal. RI interval is normal at kb 168 msec. QRS interval is normal at 82 msec. QT interval is normal at 409 msec. Administered Medications: No medications were administered Disposition Summary: 08/24/22 19:54 Discharge Ordered Location: Home kb Condition: Stable kb Diagnosis - Acute upper respiratory infection, unspecified kb Followup: kb - With: Emergency Department - When: As needed - Reason: Worsening of condition Followup: kb - With: Private Physician - When: 2 - 3 days - Reason: Recheck today's complaints, Continuance of care, Re-evaluation by your physician Discharge Instructions: - Discharge Summary Sheet kb - Upper Respiratory Infection, Adult, [id number] kb - Viral Respiratory Infection, [id number] kb Forms: - Medication Reconciliation Form kb - Thank You Letter kb - Antibiotic Education kb - Prescription Opioid Use kb Signatures: Dispatcher [employer] Judith King, BEATER DUMPER-C ROBEL-Grace Berkowitz, RN RN ph
--- NOTE | 2022-08-24 19:54 | ER ---
Nurse's Notes [facility] Name: Celina Meeks Age: 42 yrs Sex: Female : 1980 Arrival Date: 08/24/2022 Time: 17:35 Bed 11 Private MD: Diagnosis: Acute upper respiratory infection, unspecified Presentation: 08/24 17:59 Chief complaint: Patient states: Body aches, SOB, fever, chills, cough, nausea, and ph back pain, symptoms began on Wednesday. Coronavirus screen: Vaccine status: Patient reports receiving the 2nd dose of the covid vaccine. Ebola Screen: No symptoms or risks identified at this time. Initial Sepsis Screen: Does the patient meet any 2 criteria? No. Patient's initial sepsis screen is negative. Does the patient have a suspected source of infection? No. Patient's initial sepsis screen is negative. Risk Assessment: Do you want to hurt yourself or someone else? Patient reports no desire to harm self or others. 17:59 Method Of Arrival: Ambulatory ph 17:59 Acuity: HAY 4 ph 18:02 Onset of symptoms was August 24, 2022. ph Historical: - Allergies: 18:01 No Known Allergies; ph - Home Meds: 18:01 metformin 500 mg Oral tab 1 tab 2 times per day [Active]; atorvastatin 40 mg Oral tab 1 ph tab once daily [Active]; gemfibrozil 600 mg Oral tab 1 tab 2 times per day [Active]; rosuvastatin 10 mg Oral tab 1 tab once daily [Active]; - PMHx: 18:01 diabetes mellitus; Hypertensive disorder; ph - PSHx: 18:01 section; Cholecystectomy; ph - Immunization history:: Adult Immunizations unknown. - Social history:: Smoking status: Patient denies any tobacco usage or history of. Screenin:20 [facility] ED Fall Risk Assessment (Adult) History of falling in the last 3 months, mb9 including since admission No falls in past 3 months (0 pts) Confusion or Disorientation No (0 pts) Intoxicated or Sedated No (0 pts) Impaired Gait No (0 pts) Mobility Assist Device Used No (0 pt) Altered Elimination No (0 pt) Score/Fall Risk Level 0 - 2 = Low Risk Oriented to surroundings, Maintained a safe environment, Educated pt \\T\\ family on fall prevention, incl call for assistance when getting out of bed. Abuse screen: Denies threats or abuse. Nutritional screening: No deficits noted. Tuberculosis screening: No symptoms or risk factors identified. Assessment: 19:18 Reassessment: Pt brought back to ER room. mb9 19:20 General: Appears uncomfortable, Behavior is calm, cooperative. Pain: Complains of pain mb9 in head. 19:20 Neuro: Germain Agitation-Sedation Scale (RASS): 0 - Alert and Calm Level of mb9 Consciousness is awake, alert, obeys commands, Oriented to person, place, time, situation, Appropriate for age. Cardiovascular: Reports "chest tightness when coughing" Rhythm is regular. Respiratory: Reports cough that is non-productive, Airway is patent Respiratory effort is even, unlabored, Respiratory pattern is regular, symmetrical, Breath sounds are clear bilaterally. GI: Abdomen is round non-distended, Bowel sounds present X 4 quads. Abd is soft and non tender X 4 quads. Reports nausea. : No signs and/or symptoms were reported regarding the genitourinary system. EENT: No signs and/or symptoms were reported regarding the EENT system. Derm: Skin is pink, warm \\T\\ dry. Musculoskeletal: Range of motion: intact in all extremities. Vital Signs: 17:59 BP 157 / 98; Pulse 91; Resp 20; Temp 98.1; Pulse Ox 98% on R/A; Weight 89.36 kg; Height ph 4 ft. 11 in. (149.86 cm); 19:55 BP 157 / 86; Pulse 86; Resp 20; Pulse Ox 100% ; mb9 17:59 Body Mass Index 39.79 (89.36 kg, 149.86 cm) ph ED Course: 17:35 Patient arrived in ED. rg4 17:54 Judith Rios FNP-C [facility] kb 17:54 Belén Schmidt MD is Attending Physician. kb 18:01 Triage completed. ph 18:02 Arm band placed on. ph 18:06 COVID-19/FLU A+B/RSV Sent. ph 18:20 Chest Pa And Lat (2 Views) XRAY In Process Unspecified. EDMS 19:18 Svitlana Camacho, SHERIN is Primary Nurse. mb9 19:20 Call light in reach. Side rails up X 1. Client placed on continuous cardiac and pulse mb9 oximetry monitoring. NIBP monitoring applied. 19:58 No provider procedures requiring assistance completed. Patient did not have IV access as6 during this emergency room visit. Administered Medications: No medications were administered Medication: 19:56 VIS not applicable for this client. mb9 Outcome: 19:54 Discharge ordered by MD. heller 19:58 Discharged to home ambulatory, with significant other. as6 19:58 Condition: stable 19:58 Discharge instructions given to patient, Instructed on discharge instructions, follow up and referral plans. Demonstrated understanding of instructions, follow-up care. 19:58 Patient left the ED. as6 Signatures: Dispatcher [employer] EDMS Judith Rios, MATHEMATICS PROFESSOR-C MATHEMATICS PROFESSOR-Grace Berkowitz, RN RN gunner Thompson, Syeda garza[address] RN RN as6 Svitlana Camacho RN RN mb9
[2022-08-24 20:08] VITALS: TEMP 98.1
[2022-08-24 20:09] VITALS: BP 157/86; O2SAT 100
== END 2022-08-24 19:58 | disposition home or self-care (01) ==
LOC: ER 17:32
DX: J06.9 Acute upper respiratory infection, unspecified (principal); E11.9 Type 2 diabetes mellitus without complications; I10 Essential (primary) hypertension; Z20.822 Contact with and (suspected) exposure to COVID-19
CPT/HCPCS: 0241U; 71046; 93005

== ENCOUNTER 2022-12-07 13:15 | Emergency (ER) | payer OTHER ==
--- OUTSIDE RECORDS SUMMARY | 2022-12-07 13:19 | XMS REPORT | Continuity of Care Document ---
:1980 Author Organization [facility] t Address [address] [facility] [address] [place] [address] Care Team Providers Name Role Phone USHA THOMAS Primary Care Physician Unavailable FREDRICK GARBER Attending Clinician Unavailable Nurse, Adc Pob Immunization Attending Clinician Unavailable Fredrick Garber DO Attending Clinician EVAN HENSON Attending Clinician Unavailable Sierra Escobar RN Attending Clinician SHARON LILLY Attending Clinician Unavailable Therapy, [facility] Covid Infusion Attending Clinician Unavailable Evan Henson MD Attending Clinician Doctor Unassigned, [place] Attending Clinician Unavailable Meena Patel Attending Clinician MEENA BRADFORD Attending Clinician Unavailable SHARON LILLY Admitting Clinician Unavailable Payers Payer Name Policy Type Policy Number Effective Date Expiration Date S oursirisha [employer] PPO GENERIC [id number] 2020 00:00:00 Problems Condition Condition Condition Status Onset Resolution Last Treating Co mments Source Name Details Category Date Date Treatment Clinician Date COVID-19 COVID-19 Disease Active Unive rs 1-15 ity of 00:00: [address] Pain Pain Disease Active Univers pelvic pelvic 3-23 ity of 00:00: [place] 00 Medical Branch BV BV Disease Active Univers (bacterial (bacterial 3-22 it y of vaginosis[place] [facility] Screening Screening Disease Active Overview: [facility] for STD for STD 03-13 Formattin ity o f (sexually (sexually 00:00: g of this [place] transmitte transmitte 00 note Me dical d disease) d disease) might be Branch different from the original. 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 ALLERGIE Class ity of [facility] Social History Social Habit Start Date Stop Date Quantity Comments Source Exposure to Yes [facility] SARS-CoV-2 (event) Medica l Branch Alcohol intake 2020-07-29 2020-07-29 0 /d [facility] 00:00:00 00:00:00 [facility] Tobacco use and 2015-03-13 2015-03-13 Never used [facility] exposure 00:00:00 00:00:00 [facility] Sex Ass[birth year] At [birth year] [facility] 00:00:00 00:00:00 [facility] Smoking Status Start Date Stop Date Source Never smoker [facility] Medications Ordered Filled Start Stop Current Ordering Indication Dosage Frequency Signature Comments Components Source Medication Medication Date Date Medication? Clinician (SIG) Name Name carvedilol Yes 6.25mg Take 6.25 Univers (COREG) 1-26 mg by ity of 6.25 mg 19:37: mouth 2 [place] tablet 33 (two) Medical times [place] daily with meals. carvedilol Yes 6.25mg Take 6.25 Univers (COREG) 1-26 mg by ity of 6.25 mg 19:37: mouth 2 [place] tablet 33 (two) Medical times [place] daily with meals. carvedilol Yes 6.25mg Take 6.25 Univers (COREG) 1-26 mg by ity of 6.25 mg 13:37: mouth 2 [place] tablet 33 (two) Medical times Branch daily with meals. insulin Yes [id number] 10U inject 10 Univers glargine 1-26 Units ity of 100 unit/mL 00:00: under the [place] injection 00 skin at Medical bedtime. Branch insulin Yes [id number] 10U inject 10 Univers glargine 1-26 Units [...] mouth ity of tablet 00:00: daily. [place] [facility] metformin 2019-07 Yes TAKE 1 TO Uni vers ER 500 mg 1-10 2 TABLETS ity o f 24 hr 00:00: BY MOUTH [place] tablet 00 TWICE Medical DAILY WITH Branch MEALS rosuvastati 2019-07 Yes 10mg Take 10 mg Univers n 10 mg 1-10 by mouth ity of tablet 00:00: daily. [address] pentazocine 2015-07 Yes 1{tbl} Take 1 Un [...] for Nausea and Vomiting (N/V). metroNIDAZO Yes [id number] 500mg Take 1 Tab Univers LE (FLAGYL) 3-22 by mouth 2 it y of 500 mg 00:00: (two) [place] tablet 00 times Medical daily. Branch metroNIDAZO Yes [id number] 500mg Take 1 Tab Univers LE (FLAGYL) 3-22 by mouth 2 it y of 500 mg 00:00: (two) [place] tablet 00 times Medical daily. Branch metroNIDAZO Yes [id number] 500mg Take 1 Tab Univers LE (FLAGYL) 3-22 by mouth 2 it y of 500 mg 00:00: (two) [place] tablet 00 times Medical daily. Branch metroNIDAZO Yes [id number] 500mg Take 1 Tab Univers LE (FLAGYL) 3-22 by mouth 2 it y of 500 mg 00:00: (two) [place] tablet 00 times Medical daily. Branch metroNIDAZO Yes [id number] 500mg Take 1 Tab Univers LE (FLAGYL) 3-22 by mouth 2 it y of 500 mg 00:00: (two) [place] tablet 00 times Medical daily. Branch carvedilol 2014-07 Yes 6.25mg Take 6.25 Univers (COREG) 1-06 mg by ity of 6.25 mg 01:38: mouth 2 [place] tablet 00 (two) Medical times [place] daily with meals. carvedilol 2014-07 Yes 6.25mg Take 6.25 Univers (COREG) 1-06 mg by ity of 6.25 mg 01:38: mouth 2 [place] tablet 00 (two) Medical times [place] daily with meals. Immunizations Ordered Filled Immunization Date Status Comments [facility] e Immunization Name Name SARS-COV-2 COVID-19 2021-07-09 Completed Unive rsity of PFIZER VACCINE 00:00:00 [facility] SARS-COV-2 COVID-19 2020-11-16 Completed Unive rsity of PFIZER VACCINE 00:00:00 [facility] SARS-COV-2 COVID-19 2020-10-26 Completed Unive rsity of PFIZER VACCINE 00:00:00 [facility] TDAP 2008-10-30 Completed University 00:00:00 [facility] TDAP 2008-10-30 Completed University 00:00:00 [facility] TDAP 2008-10-30 Completed University of 00:00:00 [facility] TDAP 2008-10-30 Completed [place] of 00:00:00 [facility] TDAP 2008-10-30 Completed [facility] 00:00:00 [facility] Vital Signs Vital Name Observation Time Observation Value Comments Source Systolic blood 2020-07-30 00:16:00 135 mm[Hg] Univer sity of pressure [facility] Diastolic blood 2020-07-30 00:16:00 84 mm[Hg] Unive rsity of pressure [place] [facility] Heart rate 2020-07-30 00:16:00 112 /min Universi ty of [place] [facility] [place] Body temperature 2020-07-30 00:16:00 37.56 Kenisha Univ ersity of [place] [facility] Respiratory rate 2020-07-30 00:16:00 17 /min Univ ersity of [place] [facility] Body height 2020-07-30 00:16:00 149.9 cm [facility] [place] [facility] Body weight 2020-07-30 00:16:00 97.523 kg [facility] [place] [facility] BMI 2020-07-30 00:16:00 43.42 kg/m2 Universi ty of [place] [facility] Oxygen saturation in 2020-07-30 00:16:00 96 /min University of Arterial blood by [place] [facility] Pulse oximetry Branch Systolic blood 2020-07-30 00:16:00 135 mm[Hg] Univer sity of pressure [place] [facility] [place] Diastolic blood 2020-07-30 00:16:00 84 mm[Hg] Unive rsity of pressure [place] [facility] [place] Heart rate 2020-07-30 00:16:00 112 /min [facility]i ty [facility] [place] [facility] Body temperature 2020-07-30 00:16:00 37.56 Kenisha Univ ersity of [place] [facility] Respiratory rate 2020-07-30 00:16:00 17 /min Univ ersity of [place] [facility] [place] Body height 2020-07-30 00:16:00 149.9 cm Universi ty [facility] [place] [facility] [place] Body weight 2020-07-30 00:16:00 97.523 kg [facility]i [facility] [place] [facility] BMI 2020-07-30 00:16:00 43.42 kg/m2 [facility] ty [facility] [place] [facility] Oxygen saturation in 2020-07-30 00:16:00 96 /min University of Arterial blood by [place] [employer] elina Pulse oximetry Branch Procedures Procedure Date / Time Performed Performing Clinician Sour e SARS-COV-2 COVID-19 2021-07-09 17:43:14 Doctor Unassigned, No Un iversity of [place] VACCINE,0.3ML,IM Name Medical Branch (PFIZER) SCANNED LAB RESULTS 2020-07-30 06:01:00 Doctor Unassigned, No Un iversity of [place] Name [facility] Encounters Start End Encounter Admission Attending Care Care Encounter Source Date/Time Date/Time Type Type Clinicians Facility Department ID 2021-07-09 2021-07-09 Outpatient Esther GARBER [facility] [id number] Univers 11:10:00 11:10:03 FREDRICK itnaila [facility] 2021-07-09 2021-07-09 Imm/Inj Nurse, Adc Pob Immunization [facility] 1.2.840.114 [id number] Univers 11:10:00 11:10:03 Visit Floyd Garbers Jorje MEREDITH [id number] [facility] [id number] PROF[place] [phone] Pa dical NAL [address] [facility] 2020-11-16 2020-11-16 Outpatient [facility] [id number] Univers 08:35:00 08:35:00 ity [facility] 2020-11-16 2020-11-16 Outpatient [facility] [id number] Univers 08:05:00 08:05:00 ity [facility] 2020-10-26 2020-10-26 Outpatient Esther HENSON [facility] [id number] Univers 08:10:00 [facility]:10:00 [facility] 2020-08-14 Transition Hansel Escobar [id number] 00:00:00 00:00:00 of Care Sierra Posey [id number] [place] [id number] 2020-08-14 2020-08-14 Transition Hansel Escobar [id number] Univers 00:00:00 00:00:00 of Care Sierra Posey [id number] i [id number] [place] [id number] [address] 2020-08-02 2020-08-13 Inpatient X ROBBIE LILLYWong [facility] SOURAV [id number] Univers 12:35:00 13:37:00 ity [facility] 2020-08-02 2020-08-02 Outpatient R SARAH BETH [facility] [id number] [facility] 12:00:00 12:00:00 EVAN itnaila [facility] 2020-08-02 2020-08-02 Nurse Therapy, [facility] [id number] 07:34:01 09:04:01 Visit [facility] Covid SPECIALTY [id number] Infusion CARE [id number] CENTER AT [phone] [address] 2020-08-02 2020-08-02 Nurse Therapy, [facility] Covid Infusion [facility] 1.2.[id number] [facility] 07:34:01 09:04:01 Visit Evan Henson SPECIALTY [id number] ity of CARE [id number] [place] CENTER AT [phone] Pa carmela [address] 2020-07-30 2020-07-30 Orders Doctor PRAVEENA 1.2.840.114 [id number] 00:00:00 00:00:00 Only Unassigned, [place] [id number] [place] [facility] [id number] [facility] 2020-07-30 2020-07-30 Orders Doctor PRAVEENA 1.2.840.114 [id number] Univers 00:00:00 00:00:00 Only Unassigned, ELI [id number] [facility]y of [place] [facility] [id number] [place] as [id number] [address] 2020-07-29 2020-07-29 [facility] [id number] 18:12:39 18:32:39 Care [facility] [id number] [place] [id number] Professio [id number] nal [address] 2020-07-29 2020-07-29 [facility] [id number] Univers 18:12:39 18:32:39 Care [facility] [id number] it y of [place] [id number] [place] as Professio [phone] Pa dical nal [address] 2020-07-29 2020-07-29 Outpatient R SUZETTE [facility] [id number] [facility] 18:20:00 18:20:00 MEENA norton [facility] Results This patient has no known results.
[2022-12-07 14:52] LABS: Specific Gravity 1.016 (1.005-1.030)
[2022-12-07 14:53] LABS: Specific Gravity 1.016 (1.005-1.030); Urine Bilirubin NEGATIVE (Negative); Urine Blood Trace (Negative); Urine Clarity Clear (Clear); Urine Color Light-Yellow (Yellow); Urine Glucose NEGATIVE (Negative); Urine Protein NEGATIVE (Negative); Urine Urobilinogen Normal (Normal)
[2022-12-07] MEDS ORDERED: KETOROLAC 30 MG/ML INJ ONE (14:59)
[2022-12-07 15:02] LABS: Absolute Lymphocytes (CBC) 2.8 K/uL (0.7-4.9); Hematocrit 35.8 % (36.0-45.0); Lymphocytes % 28.9 % (15.3-44.8); RBC Red Blood Cell Count 3.98 M/uL (3.86-4.86)
[2022-12-07 15:20] LABS: Albumin 3.5 g/dL (3.4-5.0); Bilirubin Total 0.3 mg/dL (0.2-1.0); Potassium 3.6 mEq/L (3.5-5.1); Protein, Total 6.7 g/dL (6.4-8.2)
--- NOTE | 2022-12-07 16:01 | RAD REPORT ---
EXAM DESCRIPTION: CTAbdomen Pelvis W Contrast - 12/07/2022 3:50 pm CLINICAL HISTORY: Abdominal pain. ABD PAIN COMPARISON: <Comparisons> TECHNIQUE: Biphasic CT imaging of the abdomen and pelvis was performed with 100 ml non-ionic IV cont rast. All CT scans are performed using dose optimization technique as appropriate and may include automated exposure control or mA/KV adjustment according to patient size. FINDINGS: The lung bases are clear. Diffuse fatty liver. Cholecystectomy clips. The spleen, pancreas, adrenal glands and kidneys are with in normal limits. No bowel obstruction, free air, free fluid or abscess. The appendix is normal. No evidence of signi ficant lymphadenopathy. No suspicious bony findings. IMPRESSION: No acute intra-abdominal or pelvic finding. Diffuse fatty liver.
--- NOTE | 2022-12-07 16:10 | EDPHYS ---
Physician Documentation [facility] Name: Celina Meeks Age: 42 yrs Sex: Female : 1980 Arrival Date: 12/07/2022 Time: 13:15 Bed 12 Private MD: ED Physician Belén Schmidt HPI: 12/07 14:38 This 42 yrs old Female presents to ER via Ambulatory with complaints of Flank sp3 Pain. 14:38 42-year-old female with history of diabetes, hypertension status post cholecystectomy sp3 now presents with 2-day history of right upper quadrant abdominal pain extending around to the posterior cavity into the back. Patient states that pain is off-and-on sharp in nature and not incidental with any food intake. Patient's cholecystectomy was 2001 and she has had no other abdominal surgeries since then. She denies any headache, neck pain, chest pain, shortness of breath, vomiting, diarrhea, left-sided abdominal pain, vaginal bleeding or discharge, urinary symptoms, prior kidney stone, visualized hematuria, fever, travel history, known sick contacts, or any other signs or symptoms on review of systems at this time.. Historical: - Allergies: 13:47 No Known Allergies; aa5 - PMHx: 13:47 diabetes mellitus; Hypertensive disorder; aa5 - PSHx: 13:47 section; Cholecystectomy; aa5 13:48 Tubal sx; aa5 - Immunization history:: Adult Immunizations unknown. - Social history:: Smoking status: Patient denies any tobacco usage or history of. ROS: 14:40 Constitutional: Negative for fever, chills, and weight loss, Eyes: Negative for injury, sp3 pain, redness, and discharge, ENT: Negative for injury, pain, and discharge, Neck: Negative for injury, pain, and swelling, Cardiovascular: Negative for chest pain, palpitations, and edema, Respiratory: Negative for shortness of breath, cough, wheezing, and pleuritic chest pain, Back: Negative for injury and pain, : Negative for injury, bleeding, discharge, and swelling, MS/Extremity: Negative for injury and deformity, Skin: Negative for injury, rash, and discoloration, Neuro: Negative for headache, weakness, numbness, tingling, and seizure, Psych: Negative for depression, anxiety, suicide ideation, homicidal ideation, and hallucinations, Allergy/Immunology: Negative for hives, rash, and allergies, Endocrine: Negative for neck swelling, polydipsia, polyuria, polyphagia, and marked weight changes, Hematologic/Lymphatic: Negative for swollen nodes, abnormal bleeding, and unusual bruising. 14:40 All other systems are negative. Exam: 14:40 Constitutional: This is a well developed, well nourished patient who is awake, alert, sp3 and in no acute distress. Head/Face: Normocephalic, atraumatic. Eyes: Pupils equal round and reactive to light, extra-ocular motions intact. Lids and lashes normal. Conjunctiva and sclera are non-icteric and not injected. Cornea within normal limits. Periorbital areas with no swelling, redness, or edema. Neck: Trachea midline, no thyromegaly or masses palpated, and no cervical lymphadenopathy. Supple, full range of motion without nuchal rigidity, or vertebral point tenderness. No Meningismus. Chest/axilla: Normal chest wall appearance and motion. Nontender with no deformity. No lesions are appreciated. Cardiovascular: Regular rate and rhythm with a normal S1 and S2. No gallops, murmurs, or rubs. Normal PMI, no JVD. No pulse deficits. Respiratory: Lungs have equal breath sounds bilaterally, clear to auscultation and percussion. No rales, rhonchi or wheezes noted. No increased work of breathing, no retractions or nasal flaring. Back: No spinal tenderness. No costovertebral tenderness. Full range of motion. Skin: Warm, dry with normal turgor. Normal color with no rashes, no lesions, and no evidence of cellulitis. MS/ Extremity: Pulses equal, no cyanosis. Neurovascular intact. Full, normal range of motion. Neuro: Awake and alert, GCS 15, oriented to person, place, time, and situation. Cranial nerves II-XII grossly intact. Motor strength 5/5 in all extremities. Sensory grossly intact. Cerebellar exam normal. Normal gait. Psych: Awake, alert, with orientation to person, place and time. Behavior, mood, and affect are within normal limits. 14:40 Abdomen/GI: Right-sided abdominal pain in the upper quadrant without peritoneal signs, rebound or guarding.. Vital Signs: 13:46 BP 125 / 60; Pulse 79; Resp 16 S; Temp 97.6(TE); Pulse Ox 100% on R/A; Weight 85.28 kg aa5 (R); Height 4 ft. 11 in. (R); 16:01 BP 122 / 62; Pulse 74; Resp 16; Pulse Ox 99% on R/A; ko1 13:46 Body Mass Index 37.97 (85.28 kg, 149.86 cm) aa5 MDM: 13:50 Patient medically screened. sp3 14:41 Data reviewed: vital signs, nurses notes, lab test result(s), radiologic studies. ED sp3 course: 42-year-old female status postcholecystectomy with right upper quadrant abdominal pain. Differential diagnosis includes pancreatitis, other biliary pathology, UTI, kidney stone, intestinal pathology, gastritis, peptic ulcer disease, musculoskeletal, among others. Patient is nontoxic and in no acute distress will administer ketorolac 30 mg IV as both diagnostic and therapeutic for musculoskeletal presentation. CT scan of the abdomen pelvis is pending along with laboratory values and urinalysis. Disposition to be based on work-up and patient course.. 16:08 ED course: Labs, urine and CT scan are normal. I believe patient symptoms are likely sp3 musculoskeletal in origin. Ketorolac has made the patient feel better. We will discharge her on diclofenac p.o. and PCP follow-up.. 12/07 13:50 Order name: CBC with Diff; Complete Time: 15:22 sp3 12/07 13:50 Order name: CMP; Complete Time: 15: sp3 12/07 13:50 Order name: Lipase; Complete Time: 15: sp3 12/07 13:50 Order name: Test, Urine; Complete Time: 15:22 sp3 12/07 13:50 Order name: Urinalysis w/ reflexes; Complete Time: 15:22 sp3 12/07 13:50 Order name: CT Abd/Pelvis - IV Contrast Only; Complete Time: 16:08 sp3 12/07 13:50 Order name: IV Saline Lock; Complete Time: 14:52 sp3 12/07 13:50 Order name: Labs collected and sent; Complete Time: 14:52 sp3 12/07 13:50 Order name: NPO; Complete Time: 14:51 sp3 Administered Medications: 14:53 Drug: Ketorolac IVP 30 mg Route: IVP; Site: right antecubital; ko1 Disposition Summary: 12/07/22 16:10 Discharge Ordered Location: Home sp3 Condition: Stable sp3 Diagnosis - Abdominal pain, unspecified sp3 - Muscle strain sp3 Followup: sp3 - With: Private Physician - When: Upon discharge from the Emergency Department - Reason: Continuance of care Discharge Instructions: - Discharge Summary Sheet sp3 - Abdominal Pain, Adult sp3 - Muscle Strain sp3 Forms: - Medication Reconciliation Form sp3 - Thank You Letter sp3 - Antibiotic Education sp3 - Prescription Opioid Use sp3 Prescriptions: - Diclofenac Sodium 75 mg Oral Tablet Sustained Release - take 1 tablet by ORAL route 2 times per day; 30 tablet; Refills: 0, Product sp3 Selection Permitted Signatures: Dispatcher [employer] EDJody Higgins RN RN aa5 Belén Schmidt MD MD sp3 Edwina Downs RN RN ko1 Corrections: (The following items were deleted from the chart) 13:56 13:51 Abdomen Limited+US.RAD.BRZ ordered. EDMS EDMS
--- NOTE | 2022-12-07 16:10 | ER ---
Nurse's Notes [facility] Name: Celina Meeks Age: 42 yrs Sex: Female : 1980 Arrival Date: 12/07/2022 Time: 13:15 Bed 12 Private MD: Diagnosis: Abdominal pain, unspecified;Muscle strain Presentation: 12/07 13:46 Chief complaint: Patient states: RUQ pain radiating around to back that has gotten aa5 gradually worse since November 26. Pt reports nausea, denies vomiting. Coronavirus screen: At this time, the client does not indicate any symptoms associated with coronavirus-19. Ebola Screen: Patient denies travel to an Ebola-affected area in the 21 days before illness onset. Initial Sepsis Screen: Does the patient meet any 2 criteria? No. Patient's initial sepsis screen is negative. Does the patient have a suspected source of infection? No. Patient's initial sepsis screen is negative. Risk Assessment: Do you want to hurt yourself or someone else? Patient reports no desire to harm self or others. Onset of symptoms was November 26, 2022. 13:46 Acuity: HAY 3 aa5 13:46 Method Of Arrival: Ambulatory aa5 Historical: - Allergies: 13:47 No Known Allergies; aa5 - PMHx: 13:47 diabetes mellitus; Hypertensive disorder; aa5 - PSHx: 13:47 section; Cholecystectomy; aa5 13:48 Tubal sx; aa5 - Immunization history:: Adult Immunizations unknown. - Social history:: Smoking status: Patient denies any tobacco usage or history of. Screenin:00 [facility] ED Fall Risk Assessment (Adult) History of falling in the last 3 months, ko1 including since admission No falls in past 3 months (0 pts) Confusion or Disorientation No (0 pts) Intoxicated or Sedated No (0 pts) Impaired Gait No (0 pts) Mobility Assist Device Used No (0 pt) Altered Elimination No (0 pt) Score/Fall Risk Level 0 - 2 = Low Risk Oriented to surroundings, Maintained a safe environment, Educated pt \T\ family on fall prevention, incl call for assistance when getting out of bed, Assessed \T\ reinforced patient's understanding of fall precautions, Provided non-skid footwear, Hourly rounding (assess needs \T\ fall precautionary measures) done, Used ambulatory aids as needed (educated on \T\ assisted with), Used gait belt as appropriate. Abuse screen: Denies threats or abuse. Denies injuries from another. Nutritional screening: No deficits noted. Tuberculosis screening: No symptoms or risk factors identified. Assessment: 14:50 General: Appears in no apparent distress. comfortable, Behavior is calm, cooperative, ko1 appropriate for age. Pain: Complains of pain in posterior aspect of right lateral abdomen and right upper quadrant. Neuro: No deficits noted. Cardiovascular: No deficits noted. Respiratory: No deficits noted. GI: No deficits noted. : No deficits noted. EENT: No deficits noted. Derm: No deficits noted. Musculoskeletal: Reports pain in posterior aspect of right lateral abdomen and right upper quadrant. Vital Signs: 13:46 BP 125 / 60; Pulse 79; Resp 16 S; Temp 97.6(TE); Pulse Ox 100% on R/A; Weight 85.28 kg aa5 (R); Height 4 ft. 11 in. (R); 16:01 BP 122 / 62; Pulse 74; Resp 16; Pulse Ox 99% on R/A; ko1 13:46 Body Mass Index 37.97 (85.28 kg, 149.86 cm) aa5 ED Course: 13:17 Patient arrived in ED. rg4 13:46 Arm band placed on. aa5 13:47 Triage completed. aa5 13:49 Belén Schmidt MD is Attending Physician. sp3 14:18 Edwina Downs, RN is Primary Nurse. ko1 14:29 Radiology exam delayed due to lab results not completed at this time. (BUN/Creatinine) jg10 IV insertion attempt and/or patient not having appropriate IV at this time. 14:52 CBC with Diff Sent. ko1 14:52 CMP Sent. ko1 14:52 Lipase Sent. ko1 14:52 Test, Urine Sent. ko1 14:52 Urinalysis w/ reflexes Sent. ko1 14:54 Initial lab(s) drawn, by me, sent to lab. Inserted saline lock: 22 gauge in right em1 antecubital area, using aseptic technique. Blood collected. 15:52 CT Abd/Pelvis - IV Contrast Only In Process Unspecified. EDMS 16:00 Patient has correct armband on for positive identification. Bed in low position. Call ko1 light in reach. Client placed on continuous cardiac and pulse oximetry monitoring. NIBP monitoring applied. night monitor on. Door closed. Noise minimized. Lights dimmed. Warm blanket given. Diet: Patient is NPO. 16:00 No provider procedures requiring assistance completed. ko1 16:12 IV discontinued, intact, bleeding controlled, No redness/swelling at site. Pressure ko1 dressing applied. Administered Medications: 14:53 Drug: Ketorolac IVP 30 mg Route: IVP; Site: right antecubital; ko1 Medication: 16:00 VIS not applicable for this client. ko1 Outcome: 16:10 Discharge ordered by . sp3 16:12 Discharged to home ambulatory. ko1 16:12 Condition: improved 16:12 Discharge instructions given to patient, Instructed on discharge instructions, follow up and referral plans. medication usage, Demonstrated understanding of instructions, follow-up care, medications, Prescriptions given X 1. 16:17 Patient left the ED. ko1 Signatures: Dispatcher [employer] EDMS Omar Renteria em1 Jody Rios, RN RN [id number] Syeda Thompson rg4 Belén Schmidt MD MD sp3 Edwina Downs RN RN ko1 Teresita Yuen jg10 Corrections: (The following items were deleted from the chart) 14:29 14:10 Radiology exam delayed due to lab results not completed at this time. jg10 (BUN/Creatinine) test not completed at this time. IV insertion attempt and/or patient not having appropriate IV at this time. jg10 16:00 14:50 Pain: Complains of pain in back ko1 ko1 16:00 14:50 Musculoskeletal: No deficits noted. ko1 ko1
[2022-12-07 17:05] VITALS: TEMP 97.6
[2022-12-07 17:06] VITALS: BP 122/62; O2SAT 99
== END 2022-12-07 16:17 | disposition home or self-care (01) ==
LOC: ER 13:15
DX: S39.011A Strain of muscle, fascia and tendon of abdomen, initial encounter (principal); E11.9 Type 2 diabetes mellitus without complications; I10 Essential (primary) hypertension
CPT/HCPCS: 85025; 36415; 81025; 81003; 83690; 80053; 74177; Q9967

== ENCOUNTER → 2023-08-11 | Emergency (ER) | payer OTHER, SELFPAY ==
[~2023-08-11] MED LIST: ASPIRIN 81 MG CHEWABLE TABLET ONE; DIAZEPAM 5 MG TABLET ONE; MORPHINE 4 MG/ML SYR ONE; NA CHLORIDE 0.9% 1,000 ML ONE; ONDANSETRON 4 MG (ODT) TAB ONE
--- OUTSIDE RECORDS SUMMARY | 2023-08-11 22:53 | XMS REPORT | Continuity of Care Document ---
Author Name Unknown Address [address] [facility] [address] [place] [address] [facility] Address [address] [facility] [facility] 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 Role Phone Gabriel Shoemaker Humphrey Primary Care Physician [phone] [email or web address] Attending Clinician UnavailFREDRICK Ramírez Attending Clinician Unavail able Nurse, Ad[facility] Pob Immunization Attending Clinician Unavailable Fredrick Garber DO Attending Clinician [phone] EVAN HENSON Attending Clinician Unavailable Sierra Escobar RN Attending Clinician [phone] SHARON LILLY Attending Clinician Unavailable Therapy, [facility] Covid Infusion Attending Clinician Unavailable Evan Henson MD Attending Clinician [phone] Doctor Unassigned, [place] Attending Clinician U Meena Ma Attending Clinician [phone] MEENA BRADFORD Attending Clinician Unavailable [email or web address]_S Admitting Clinician Unavaila SHARON Soriano Admitting Clinician Unavailable Payers Payer Name Policy Type Policy Number Effective Date Expirati on Date Source [facility] - [employer] (POS II) [id number] 2022 00:00:00 [employer] PPO GENERIC [id number] 2020 00:00:00 Problems Condition Name Condition Details Condition Category Status Onset Date Resolution Date Last Treatment Date Treating Clinician Comments Source COVID-19 COVID-19 Disease Active 08-02 00:00: 00 [facility] Pain pelvic Pain pelvic Disease Active 10-08 00:00: 00 [facility] BV (bacterial vaginosis) BV (bacterial vaginosis) Disease Active 10-07 00:00: 00 [facility] Screening for STD (sexually transmitte d disease) Screening for STD (sexually transmitte d disease) Disease Active 03-13 00:00: 00 Overview: Formattin g of this note might be different from the original. ICD10 Diagnosis Term [employer] [facility] Other and unspecifie d ovarian cyst Other and unspecifie d ovarian cyst Disease Active 03-13 00:00: 00 [facility] H/O tubal ligation H/O tubal ligation Disease Active 03-13 00:00: 00 [facility] Morbid obesity Morbid obesity Disease Active 03-13 00:00: 00 [facility] Allergies, Adverse Reactions, Alerts Allergy Name Allergy Type Status Severity Reaction(s) Onset Date Inactive Date Treating Clinician Comments Source NO KNOWN ALLERGIE S Drug Class Active [facility] Social History Social Habit Start Date Stop Date Quantity Comments [facility] SARS-CoV-2 (event) 2020-07-03 00:00:00 2020-08-02 12:31:00 Yes [facility] History of Social function 2020-07-29 00:00:00 2020-07-29 00:00:00 [facility] Alcohol intake 2020-07-29 00:00:00 2020-07-29 00:00:00 0 /d [facility] Tobacco use and exposure 2015-03-13 00:00:00 2015-03-13 00:00:00 Smokeless tobacco non-user [facility] Sex Assigned At 1980 00:00:00 1980 00:00:00 [facility] Smoking Status Start Date Stop Date Source Never smoked tobacco [facility] Medications Ordered Medication Name Filled Medication Name Start Date Stop Date Current Medication? Ordering Clinician Indication Dosage Frequency Signature (SIG) Comments Components Source carvedilol (COREG) 6.25 mg tablet 08-13 19:37: 33 Yes 6.25mg Take 6.25 mg by mouth 2 (two) times daily with meals. [facility] carvedilol (COREG) 6.25 mg tablet 08-13 19:37: 33 Yes 6.25mg Take 6.25 mg by mouth 2 (two) times daily with meals. [facility] carvedilol (COREG) 6.25 mg tablet 08-13 13:37: 33 Yes 6.25mg Take 6.25 mg by mouth 2 (two) times daily with meals. [facility] carvedilol (COREG) 6.25 mg tablet 08-13 13:37: 33 Yes 6.25mg Take 6.25 mg by mouth 2 (two) times daily with meals. [facility] insulin glargine 100 unit/mL injection 08-13 00:00: 00 Yes [id number] 10U inject 10 Units under the skin at bedtime. [facility] insulin glargine 100 unit/mL injection 08-13 00:00: 00 Yes [id number] 10U inject 10 Units under the skin at bedtime. [facility] metformin ER 500 mg 24 hr tablet 2019-07 00:00: 00 Yes TAKE 1 TO 2 TABLETS BY MOUTH TWICE DAILY WITH MEALS [facility] rosuvastati n 10 mg tablet 2019-07 00:00: 00 Yes 10mg Take 10 mg by mouth daily. [facility] metformin ER 500 mg 24 hr tablet 2019-07 00:00: 00 Yes TAKE 1 TO 2 TABLETS BY MOUTH TWICE DAILY WITH MEALS [facility] rosuvastati n 10 mg tablet 2019-07 00:00: 00 Yes 10mg Take 10 mg by mouth daily. [facility] proMETHazin e (PHENERGAN) 25 mg tablet 2015-07 00:00: 00 Yes 25mg Take 1 tablet by mouth every 6 (six) hours as needed for Nausea and Vomiting (N/V). [facility] pentazocine -naloxone (TALWIN NX) 50-0.5 mg tablet 2015-07 00:00: 00 Yes 1{tbl} Take 1 tablet by mouth every 4 (four) hours as needed for Pain for up to 20 doses. [facility] proMETHazin e (PHENERGAN) 25 mg tablet 2015-07 00:00: 00 Yes 25mg Take 1 tablet by mouth every 6 (six) hours as needed for Nausea and Vomiting (N/V). [facility] pentazocine -naloxone (TALWIN NX) 50-0.5 mg tablet 2015-07 00:00: 00 Yes 1{tbl} Take 1 tablet by mouth every 4 (four) hours as needed for Pain for up to 20 doses. [facility] proMETHazin e (PHENERGAN) 25 mg tablet 2015-07 00:00: 00 Yes 25mg Take 1 tablet by mouth every 6 (six) hours as needed for Nausea and Vomiting (N/V). [facility] pentazocine -naloxone (TALWIN NX) 50-0.5 mg tablet 2015-07 00:00: 00 Yes 1{tbl} Take 1 tablet by mouth every 4 (four) hours as needed for Pain for up to 20 doses. [facility] proMETHazin e (PHENERGAN) 25 mg tablet 2015-07 00:00: 00 Yes 25mg Take 1 tablet by mouth every 6 (six) hours as needed for Nausea and Vomiting (N/V). [facility] pentazocine -naloxone (TALWIN NX) 50-0.5 mg tablet 2015-07 00:00: 00 Yes 1{tbl} Take 1 tablet by mouth every 4 (four) hours as needed for Pain for up to 20 doses. [facility] proMETHazin e (PHENERGAN) 25 mg tablet 2015-07 00:00: 00 Yes 25mg Take 1 tablet by mouth every 6 (six) hours as needed for Nausea and Vomiting (N/V). [facility] pentazocine -naloxone (TALWIN NX) 50-0.5 mg tablet 2015-07 00:00: 00 Yes 1{tbl} Take 1 tablet by mouth every 4 (four) hours as needed for Pain for up to 20 doses. [facility] proMETHazin e (PHENERGAN) 25 mg tablet 2015-07 00:00: 00 Yes 25mg Take 1 tablet by mouth every 6 (six) hours as needed for Nausea and Vomiting (N/V). [facility] pentazocine -naloxone (TALWIN NX) 50-0.5 mg tablet 2015-07 00:00: 00 Yes 1{tbl} Take 1 tablet by mouth every 4 (four) hours as needed for Pain for up to 20 doses. [facility] metroNIDAZO LE (FLAGYL) 500 mg tablet 10-07 00:00: 00 Yes [id number] 500mg Take 1 Tab by mouth 2 (two) times daily. [facility] metroNIDAZO LE (FLAGYL) 500 mg tablet 10-07 00:00: 00 Yes [id number] 500mg Take 1 Tab by mouth 2 (two) times daily. [facility] metroNIDAZO LE (FLAGYL) 500 mg tablet 10-07 00:00: 00 Yes [id number] 500mg Take 1 Tab by mouth 2 (two) times daily. [facility] metroNIDAZO LE (FLAGYL) 500 mg tablet 10-07 00:00: 00 Yes [id number] 500mg Take 1 Tab by mouth 2 (two) times daily. [facility] metroNIDAZO LE (FLAGYL) 500 mg tablet 10-07 00:00: 00 Yes [id number] 500mg Take 1 Tab by mouth 2 (two) times daily. [facility] metroNIDAZO LE (FLAGYL) 500 mg tablet 10-07 00:00: 00 Yes [id number] 500mg Take 1 Tab by mouth 2 (two) times daily. [facility] carvedilol (COREG) 6.25 mg tablet 2014-07 01:38: 00 Yes 6.25mg Take 6.25 mg by mouth 2 (two) times daily with meals. [facility] carvedilol (COREG) 6.25 mg tablet 2014-07 01:38: 00 Yes 6.25mg Take 6.25 mg by mouth 2 (two) times daily with meals. [facility] Immunizations Ordered Immunization Name Filled Immunization Name Date Status Comments Source SARS-COV-2 COVID-19 PFIZER VACCINE 2021-07-09 00:00:00 Completed [facility] SARS-COV-2 COVID-19 PFIZER VACCINE 2020-11-16 00:00:00 Completed [facility] SARS-COV-2 COVID-19 PFIZER VACCINE 2020-10-26 00:00:00 Completed [facility] TDAP 2008-10-30 00:00:00 Completed [facility] TDAP 2008-10-30 00:00:00 Completed [facility] TDAP 2008-10-30 00:00:00 Completed [facility] TDAP 2008-10-30 00:00:00 Completed [facility] TDAP 2008-10-30 00:00:00 Completed [facility] TDAP Unknown Completed [facility] Vital Signs Vital Name Observation Time Observation Value Comments S ource Systolic blood pressure 2020-07-30 00:16:00 135 mm[Hg] [facility] Diastolic blood pressure 2020-07-30 00:16:00 84 mm[Hg] [facility] Heart rate 2020-07-30 00:16:00 112 /min [facility] Body temperature 2020-07-30 00:16:00 37.56 [facility] Respiratory rate 2020-07-30 00:16:00 17 /min [facility] Body height 2020-07-30 00:16:00 149.9 cm [facility] Body weight 2020-07-30 00:16:00 97.523 kg [facility] BMI 2020-07-30 00:16:00 43.42 kg/m2 [facility] Oxygen saturation in Arterial blood by Pulse oximetry 2020-07-30 00:16:00 96 /min [facility] Systolic blood pressure 2020-07-30 00:16:00 135 mm[Hg] [facility] Diastolic blood pressure 2020-07-30 00:16:00 84 mm[Hg] [facility] Heart rate 2020-07-30 00:16:00 112 /min [facility] Body temperature 2020-07-30 00:16:00 37.56 [facility] Respiratory rate 2020-07-30 00:16:00 17 /min [facility] Body height 2020-07-30 00:16:00 149.9 cm [facility] Body weight 2020-07-30 00:16:00 97.523 kg [facility] BMI 2020-07-30 00:16:00 43.42 kg/m2 [facility] Oxygen saturation in Arterial blood by Pulse oximetry 2020-07-30 00:16:00 96 /min [facility] Procedures Procedure Date / Time Performed Performing Clinicia n Source SARS-COV-2 COVID-19 VACCINE,0.3ML,IM (PFIZER) 2021-07-09 17:43:14 Doctor Unassigned, [facility] SCANNED LAB RESULTS 2020-07-30 06:01:00 Doctor Soraya pitts, [facility] Encounters Start Date/Time End Date/Time Encounter Type Admission Type Attending Clinicians Care Facility Care Department Encounter ID Source 2023-06-22 00:00:00 2023-06-22 00:00:00 Outpatient GC_GCBZW_Ka diyala_S PRIV PRIV [id number] [facility] 2023-06-17 00:00:00 2023-06-17 00:00:00 Outpatient GC_GCBZW_Ka diyala_S PRIV PRIV [id number] [facility] 2023-06-17 00:00:00 2023-06-17 00:00:00 Outpatient GC_GCBZW_Ka diyala_S PRIV PRIV [id number] [facility] 2023-06-17 00:00:00 2023-06-17 00:00:00 Outpatient GC_GCBZW_Ka diyala_S PRIV PRIV [id number] [facility] 2023-06-02 00:00:00 2023-06-02 00:00:00 Outpatient GC_GCBZW_Ka diyala_S PRIV PRIV [id number] [facility] 2023-06-01 00:00:00 2023-06-01 00:00:00 Outpatient GC_GCBZW_Ka diyala_S PRIV PRIV [id number] [facility] 2023 00:00:00 2023 00:00:00 Outpatient GC_GCBZW_Ka diyala_S PRIV PRIV [id number] [facility] 2021-07-09 11:10:00 2021-07-09 11:10:03 Outpatient FREDRICK MCGRAW [facility] [id number] [facility] 2021-07-09 11:10:00 2021-07-09 11:10:03 Imm/Inj Visit Nurse, Adc Pob Immunizatio Fredrick Gayle [facility] .[id number] [id number] [id number] [facility] 2020-11-16 08:35:00 2020-11-16 08:35:00 Outpatient [facility] [id number] [facility] 2020-11-16 08:05:00 2020-11-16 08:05:00 Outpatient [facility] [id number] [facility] 2020-10-26 08:10:00 2020-10-26 08:10:00 Outpatient EVAN NIETO [facility] [id number] [facility] 2020-08-14 00:00:00 2020-08-14 00:00:00 Transition of Care Sierra Escobar ..840.114 [id number] [id number] [id number] 2020-08-14 00:00:00 2020-08-14 00:00:00 Transition of Care Sierra Escobar Tino Landinmonica Kalpesh Walter [id number] [id number] [id number] [id number] [facility] 2020-08-02 12:35:00 2020-08-13 13:37:[address]ON LOVE [facility]RA[facility] [id number] [facility] 2020-08-02 12:00:00 2020-08-02 12:00:00 Outpatient EVAN NIETO [facility] [id number] [facility] 2020-08-02 07:34:01 2020-08-02 09:04:01 Nurse Visit Therapy, [facility] Covid [facility] [id number] 350.1.13.10 4.2.7.2.686 [id number] 2020-08-02 07:34:01 2020-08-02 09:04:01 Nurse Visit Therapy, [facility] Covid Infusion Evan Henson [facility] [place] [facility] [id number] 350.1.13.10 [id number] [id number] [facility] 2020-07-31 00:00:00 2020-07-31 00:00:00 Patient Secure Msg Doctor Unassigned, [place] [facility] [id number] 350.1.13.10 4.2.7.2.686 [id number] [facility] 2020-07-30 00:00:00 2020-07-30 00:00:00 Orders Only Doctor Unassigned, [place] [facility] [id number] 350.1.13.10 4.2.7.2.686 [id number] 2020-07-30 00:00:00 2020-07-30 00:00:00 Orders Only Doctor Unassigned, [place] [facility] [id number] 350.1.13.10 [id number] [id number] [facility] 2020-07-29 18:12:39 2020-07-29 18:32:39 Urgent Care [facility] [address] 1.0.114 350.1.13.10 4.2.7.2.686 [id number] 2020-07-29 18:12:39 2020-07-29 18:32:39 Urgent Care [facility] [id number] 350.1.13.10 4.2.7.2.686 [id number] [facility] 2020-07-29 18:20:00 2020-07-29 18:20:00 Outpatient R [facility] [id number] [facility]
[2023-08-12 00:05] LABS: Absolute Lymphocytes (CBC) 2.8 K/uL (0.7-4.9); Hematocrit 37.9 % (36.0-45.0); Lymphocytes % 25.2 % (15.3-44.8); MCV 89.6 fL (80-100); MPV 7.5 fL (7.6-11.3); Platelets 184 thou/uL (152-406); RBC Red Blood Cell Count 4.23 M/uL (3.86-4.86)
[2023-08-12 00:08] LABS: SARS-CoV-2 Antigen Rapid Res Negative (Negative)
[2023-08-12 00:10] LABS: Protime INR 1.08
[2023-08-12 00:22] LABS: Bilirubin Direct 0.1 mg/dL (0-0.2); Bilirubin Indirect, Calculated 0.3 mg/dL (0.2-0.8); Bilirubin Total 0.4 mg/dL (0.2-1.0); Magnesium 1.8 mg/dL (1.6-2.4); Potassium 3.5 mEq/L (3.5-5.1); Protein, Total 7.5 g/dL (6.4-8.2); Troponin High Sensitivity 11.7 pg/mL (<58.9)
--- NOTE | 2023-08-12 03:59 | EDPHYS ---
Physician Documentation [facility] Name: Celina Meeks Age: 43 yrs Sex: Female : 1980 Arrival Date: 08/11/2023 Time: 22:49 Bed 8 Private MD: ED Physician Deniz Bergman HPI: 08/11 23:03 This 43 yrs old Female presents to ER via Unassigned with complaints of Chest sp4 Tightness, Arm Pain, Neck and Upper Back Pain, High Blood Pressure. 23:04 Historical: Allergies: No Known Allergies; PMHx: diabetes mellitus; Hypertensive sp4 disorder; PSHx: section; Cholecystectomy; Ligation Tubal . 23:10 Patient is a very pleasant 43-year-old female who presents with acute onset of chest sp4 pain shortness of breath nausea starting 1 PM today also some abdominal ache. Patient states she was cooking dinner she developed chest pressure midsternal area with radiation to left arm with pain going down the left arm. Patient has history of tubal ligation. History diabetes mellitus hypertension history also of hyperlipidemia. Patient takes Mounjaro, candesartan and Vascepa. 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 - Social history:: Smoking status: Patient denies any tobacco usage or history of. - Family history:: not pertinent. ROS: 23:10 Constitutional: Negative for fever, chills, and weight loss, Eyes: Negative for injury, sp4 pain, redness, and discharge, ENT: Negative for injury, pain, and discharge, Neck: Negative for injury, pain, and swelling, Cardiovascular: Positive chest pressure positive radiation to left arm positive abdominal ache 23:10 All other systems are negative, Exam: 23:10 Constitutional: This is a well developed, well nourished patient who is awake, alert, sp4 and in no acute distress. Head/Face: Normocephalic, atraumatic. Eyes: Pupils equal round and reactive to light, extra-ocular motions intact. Lids and lashes normal. Conjunctiva and sclera are not injected. Cornea within normal limits. Periorbital areas with no swelling, redness, or edema. ENT: Nares patent. No nasal discharge, no septal abnormalities noted. Tympanic membranes are normal and external auditory canals are clear. Oropharynx with no redness, swelling, or masses, exudates, or evidence of obstruction, uvula midline. Mucous membranes moist. Neck: Trachea midline, no thyromegaly or masses palpated, and no cervical lymphadenopathy. Supple, full range of motion without nuchal rigidity, or vertebral point tenderness. Chest/axilla: Normal chest wall appearance and motion. Nontender with no deformity. No lesions are appreciated. Cardiovascular: Regular rate and rhythm with a normal S1 and S2. No gallops, murmurs, or rubs. Normal PMI, no JVD. No pulse deficits. Respiratory: Lungs have equal breath sounds bilaterally, clear to auscultation and percussion. No rales, rhonchi or wheezes noted. No increased work of breathing, no retractions or nasal flaring. Abdomen/GI: Soft, non-tender, with normal bowel sounds. No distension or tympany. No guarding or rebound. No evidence of tenderness throughout. Back: No spinal tenderness. No costovertebral tenderness. Skin: Warm, dry with normal turgor. Normal color with no rashes, no lesions, and no evidence of cellulitis. MS/ Extremity: Pulses equal, no cyanosis. Neurovascular intact. Full, normal range of motion. Neuro: Awake and alert, GCS 15, oriented to person, place, time, and situation. Cranial nerves II-XII grossly intact. Motor strength 5/5 in all extremities. Sensory grossly intact. Psych: Awake, alert, with orientation to person, place and time. Behavior, mood, and affect are within normal limits Vital Signs: 23:15 BP 154 / 100; Pulse 97; Resp 20; Temp 97.9; Pulse Ox 100% ; Weight 72.57 kg; Height 4 vc1 ft. 11 in. ; Pain 10/10; 23:30 BP 134 / 66; Pulse 84; Resp 16; Pulse Ox 99% on R/A; km8 08/12 00:00 BP 150 / 60; Pulse 79; Resp 16; Pulse Ox 95% on R/A; km8 00:15 BP 143 / 64; Pulse 79; Resp 16; Pulse Ox 98% on R/A; km8 01:42 BP 136 / 68; Pulse 85; Resp 17; Pulse Ox 98% on R/A; tm6 02:50 BP 123 / 57; Pulse 75; Pulse Ox 97% on R/A; tm6 03:30 BP 113 / 64; Pulse 82; Resp 16; Pulse Ox 97% on R/A; km8 04:00 BP 114 / 54; Pulse 70; Resp 16; Pulse Ox 97% on R/A; 8 08/11 23:15 Body Mass Index 32.32 (72.57 kg, 149.86 cm) vc1 08/11 23:15 Pain Scale: Adult vc1 MDM: 08/11 22:58 [facility] 03:51 ED course: EXAM: XR Chest, 1 View CLINICAL HISTORY: The patient is 43 years old and is sp4 Female; CHEST PAIN TECHNIQUE: Frontal view of the chest. COMPARISON: No relevant prior studies available. FINDINGS: Lungs: Unremarkable. No consolidation. Pleural space: Unremarkable. No pneumothorax. Heart: Unremarkable. Mediastinum: Unremarkable. Normal mediastinal contour. Bones/joints: No acute findings. IMPRESSION: No acute findings in the chest. . 03:57 Differential diagnosis: acute myocardial infarction, acute pericarditis, anxiety, sp4 coronary artery disease chest wall pain, congestive heart failure. HEART Score: History: Slightly Suspicious (0), ECG: Normal (0), Age: < or = 45 years (0), Risk Factors: > or = 3 Risk factors for atherosclerotic disease (2), Troponin: < or = 1 x Normal Limit (0), Total Score = 2. The patient was given aspirin in the Emergency Department. Data reviewed: vital signs, nurses notes, old medical records, lab test result(s), EKG, radiologic studies, plain films. ED course: Patient has negative troponin and negative repeat troponin. 03:58 ED course: Stable for discharge home with cardiology follow-up on outpatient basis.. [facility] 08/[facility] 22:58 Order name: Basic Metabolic Panel; Complete Time: 03:50 [facility] 08/11 22:58 Order name: CBC with Diff; Complete Time: 03:50 sp4 08/11 22:58 Order name: LFT's; Complete Time: 03:50 sp4 08/11 22:58 Order name: Magnesium; Complete Time: 03:50 sp4 08/11 22:58 Order name: NT PRO-BNP; Complete Time: 03:50 08/11 22:58 Order name: PT-INR; Complete Time: 03:50 4 08/11 22:58 Order name: Troponin HS; Complete Time: 03:50 sp4 08/11 23:10 Order name: SARS RAPID; Complete Time: 03:50 sp4 08/11 23:10 Order name: Influenza Screen (a \T\ B); Complete Time: 03:50 4 08/11 23:51 Order name: Lipase; Complete Time: 03:50 EDMS 08/12 02:05 Order name: Troponin High Sensitivity; Complete Time: 03:50 sp4 08/11 22:58 Order name: XRAY Chest (1 view) [facility] 08/11 22:58 Order name: EKG; Complete Time: 22:59 08/11 22:58 Order name: Cardiac monitoring; Complete Time: 23:31 08/11 22:58 Order name: EKG - Nurse/Tech; Complete Time: 23:31 4 08/11 22:58 Order name: IV Saline Lock; Complete Time: 23:37 08/11 22:58 Order name: Labs collected and sent; Complete Time: 23:37 08/11 22:58 Order name: O2 Per Protocol; Complete Time: 23:31 08/11 22:58 Order name: O2 Sat Monitoring; Complete Time: 23:31 Administered Medications: 00:02 Drug: morphine IVP or IV 4 mg IVP once over 4 mins Route: IVP; Infused Over: 4 mins; tm6 Site: right antecubital; 04:14 Follow up: Response: No adverse reaction 00:02 Drug: Diazepam PO 5 mg PO once Route: PO; tm6 04:14 Follow up: Response: No adverse reaction 00:02 Drug: Ondansetron PO 4 mg PO once Route: PO; tm6 04:14 Follow up: Response: No adverse reaction 00:02 Drug: Aspirin PO Chewable Tablet 324 mg PO once; 81 mg tablets x 4 Route: PO; tm6 04:14 Follow up: Response: No adverse reaction km8 00:02 Drug: NS 0.9% IV 1000 ml IV at 125 ml/hr continuous Route: IV; Rate: 125 ml/hr; Site: tm6 right antecubital; 04:13 Follow up: Response: No adverse reaction; IV Status: Order to discontinue infusion; IV km8 Intake: 300ml Disposition Summary: 08/12/23 03:59 Discharge Ordered Problem: new sp4 Symptoms: have improved sp4 Condition: Stable sp4 Diagnosis - Chest pain, unspecified sp4 - Atypical chest pain sp4 Followup: sp4 - With: Blanco Thompson MD - When: 7 - 10 days - Reason: Recheck today's complaints Discharge Instructions: - Discharge Summary Sheet sp4 - Nonspecific Chest Pain, Adult, [id number] sp4 Forms: - Patient Portal Instructions sp4 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 ED EDMS
--- NOTE | 2023-08-12 03:59 | ER ---
Nurse's Notes [facility] Name: Celina Meeks Age: 43 yrs Sex: Female : 1980 Arrival Date: 08/11/2023 Time: 22:49 Bed 8 Private MD: Diagnosis: Chest pain, unspecified;Atypical chest pain Presentation: 08/11 23:15 Chief complaint: Patient states: I started having some chest discomfort but now it is vc1 radiating to left side neck, bilateral shoulders, down left arm. Coronavirus screen: Vaccine status: Patient reports receiving the 2nd dose of the covid vaccine. All boosters Client denies travel out of the [place] in the last 14 days. At this time, the client does not indicate any symptoms associated with coronavirus-19. Ebola Screen: Patient negative for fever greater than or equal to 101.5 degrees Fahrenheit, and additional compatible Ebola Virus Disease symptoms Patient denies exposure to infectious person. Patient denies travel to an Ebola-affected area in the 21 days before illness onset. No symptoms or risks identified at this time. Initial Sepsis Screen: Does the patient meet any 2 criteria? No. Patient's initial sepsis screen is negative. Does the patient have a suspected source of infection? No. Patient's initial sepsis screen is negative. Risk Assessment: Do you want to hurt yourself or someone else? Patient reports no desire to harm self or others. Onset of symptoms was August 11, 2023. 23:15 Method Of Arrival: Ambulatory vc1 23:15 Acuity: HAY 3 vc1 Triage Assessment: 23:22 General: Appears in no apparent distress. uncomfortable, Behavior is cooperative, vc1 anxious. Pain: Complains of pain in anterior aspect of left upper chest Pain radiates to left supraclavicular area, left clavicle and left arm Pain currently is 10 out of 10 on a pain scale. Quality of pain is described as pressure, radiating, Pain began suddenly, 1 hour ago. Is Noted to be grimacing, Also complains of nausea, dizziness. EENT: No deficits noted. No signs and/or symptoms were reported regarding the EENT system. Neuro: Level of Consciousness is awake, alert, obeys commands, Oriented to person, place, time, situation, Appropriate for age. Cardiovascular: Capillary refill < 3 seconds Patient's skin is warm and dry. Chest pain is described as severe, quality is sharp, is located in left chest wall radiates to left arm(s) neck scapula began 2 hours prior to arrival. Respiratory: Airway is patent Respiratory effort is even, unlabored, Respiratory pattern is regular, symmetrical. GI: Reports nausea. : No deficits noted. No signs and/or symptoms were reported regarding the genitourinary system. Derm: No deficits noted. No signs and/or symptoms reported regarding the dermatologic system. Musculoskeletal: No deficits noted. No signs and/or symptoms reported regarding the musculoskeletal system. 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 - Social history:: Smoking status: Patient denies any tobacco usage or history of. - Family history:: not pertinent. Screenin:28 Abuse screen: Denies threats or abuse. Nutritional screening: No deficits noted. vc1 Tuberculosis screening: No symptoms or risk factors identified. 23:29 [facility] ED Fall Risk Assessment (Adult) History of falling in the last 3 months, vc1 including since admission No falls in past 3 months (0 pts) Confusion or Disorientation No (0 pts) Intoxicated or Sedated No (0 pts) Impaired Gait No (0 pts) Mobility Assist Device Used No (0 pt) Altered Elimination No (0 pt) Score/Fall Risk Level 0 - 2 = Low Risk Oriented to surroundings, Maintained a safe environment, Educated pt \T\ family on fall prevention, incl call for assistance when getting out of bed. Assessment: 23:38 General: Appears in no apparent distress. Behavior is cooperative, anxious, see triage km8 assessment. Pain: Complains of pain in chest. Neuro: Level of Consciousness is awake, alert, obeys commands, Oriented to person, place, time, situation. Cardiovascular: Reports chest pain, Capillary refill < 3 seconds Patient's skin is warm and dry. Respiratory: Airway is patent Respiratory effort is even, unlabored, Respiratory pattern is regular, symmetrical. 08/12 00:36 Reassessment: Patient appears in no apparent distress at this time. No changes from km8 previously documented assessment. Patient and/or family updated on plan of care and expected duration. Pain level reassessed. Patient is alert, oriented x 3, equal unlabored respirations, skin warm/dry/pink. 01:42 Reassessment: Patient appears in no apparent distress at this time. No changes from tm6 previously documented assessment. Patient and/or family updated on plan of care and expected duration. Pain level reassessed. 02:50 Reassessment: Patient appears in no apparent distress at this time. Patient is alert, tm6 oriented x 3, equal unlabored respirations, skin warm/dry/pink. Vital Signs: 08/11 23:15 BP 154 / 100; Pulse 97; Resp 20; Temp 97.9; Pulse Ox 100% ; Weight 72.57 kg; Height 4 vc1 ft. 11 in. ; Pain 10/10; 23:30 BP 134 / 66; Pulse 84; Resp 16; Pulse Ox 99% on R/A; km8 08/12 00:00 BP 150 / 60; Pulse 79; Resp 16; Pulse Ox 95% on R/A; km8 00:15 BP 143 / 64; Pulse 79; Resp 16; Pulse Ox 98% on R/A; km8 01:42 BP 136 / 68; Pulse 85; Resp 17; Pulse Ox 98% on R/A; tm6 02:50 BP 123 / 57; Pulse 75; Pulse Ox 97% on R/A; tm6 03:30 BP 113 / 64; Pulse 82; Resp 16; Pulse Ox 97% on R/A; km8 04:00 BP 114 / 54; Pulse 70; Resp 16; Pulse Ox 97% on R/A; km8 08/11 23:15 Body Mass Index 32.32 (72.57 kg, 149.86 cm) vc1 08/11 23:15 Pain Scale: Adult vc1 ED Course: 08/11 22:55 Patient arrived in ED. gm2 22:57 Deniz Bergman MD is Attending Physician. sp4 23:17 XRAY Chest (1 view) In Process Unspecified. EDMS 23:19 Triage completed. vc1 23:22 Arm band placed on right wrist. vc1 23:27 Patient has correct armband on for positive identification. Placed in gown. Bed in low vc1 position. Call light in reach. Client placed on continuous cardiac and pulse oximetry monitoring. NIBP monitoring applied. 23:28 Patient maintains SpO2 saturation greater than 95% on room air. vc1 23:37 Influenza Screen (a \T\ B) Sent. cg3 23:37 SARS RAPID Sent. cg3 23:37 Basic Metabolic Panel Sent. cg3 23:37 CBC with Diff Sent. cg3 23:37 Troponin HS Sent. cg3 23:37 PT-INR Sent. cg3 23:37 NT PRO-BNP Sent. cg3 23:37 Magnesium Sent. cg3 23:37 LFT's Sent. cg3 23:38 Inserted saline lock: 20 gauge in right antecubital area, using aseptic technique. cg3 Blood collected. 23:57 No provider procedures requiring assistance completed. km8 08/12 03:59 Blanco Thompson MD is Referral Physician. [facility] 04:10 Provided Education on: d/c teaching. km8 04:12 IV discontinued, intact, bleeding controlled, No redness/swelling at site. Pressure km8 dressing applied. Administered Medications: 00:02 Drug: morphine IVP or IV 4 mg IVP once over 4 mins Route: IVP; Infused Over: 4 mins; tm6 Site: right antecubital; 04:14 Follow up: Response: No adverse reaction km8 00:02 Drug: Diazepam PO 5 mg PO once Route: PO; tm6 04:14 Follow up: Response: No adverse reaction 8 00:02 Drug: Ondansetron PO 4 mg PO once Route: PO; tm6 04:14 Follow up: Response: No adverse reaction km8 00:02 Drug: Aspirin PO Chewable Tablet 324 mg PO once; 81 mg tablets x 4 Route: PO; tm6 04:14 Follow up: Response: No adverse reaction 8 00:02 Drug: NS 0.9% IV 1000 ml IV at 125 ml/hr continuous Route: IV; Rate: 125 ml/hr; Site: tm6 right antecubital; 04:13 Follow up: Response: No adverse reaction; IV Status: Order to discontinue infusion; IV km8 Intake: 300ml Medication: 08/11 23:28 VIS not applicable for this client. vc1 Intake: 08/12 04:13 IV: 300ml; Total: 300ml. km8 Outcome: 03:59 Discharge ordered by . sp4 04:13 Discharged to home ambulatory, km8 04:13 Condition: good 04:13 Discharge instructions given to patient, significant other, Instructed on discharge instructions, follow up and referral plans. Demonstrated understanding of instructions, follow-up care, 04:17 Patient left the ED. km8 Signatures: Dispatcher [employer] EDMS Delfina Starks RN RN vc1 Deniz Bergman MD MD sp4 Melisa Garibay Ginger 2 Vilma Love RN RN km8 Vianey Rand RN RN tm6
[2023-08-12 07:08] VITALS: TEMP 97.9
[2023-08-12 07:20] VITALS: BP 114/54; O2SAT 97
--- NOTE | 2023-08-12 14:23 | RAD REPORT ---
EXAM DESCRIPTION: RAD - Chest Single View - 08/11/2023 11:15 pm CLINICAL HISTORY: The patient is 43 years old and is Female; CHEST PAIN TECHNIQUE: Frontal view of the chest. COMPARISON: No relevant prior studies available. FINDINGS: Lungs: Unremarkable. No consolidation. Pleural space: Unremarkable. No pneumothorax. Heart: Unremarkable. Mediastinum: Unremarkable. Normal mediastinal contour. Bones/joints: No acute findings. IMPRESSION: No acute findings in the chest. Electronically signed by: Link Young MD 08/11/2023 11:34 PM WEBSITE PROGRAMMER Due to temporary technical issues with the PACS/Fluency reporting system, reports are being signed by the in house radiologist without review as a courtesy to ensure prompt reporting. The interpreting r adiologist is fully responsible for the content of the report.
--- NOTE | 2023-08-12 16:26 | EKG ---
Test Date: 2023-08-11 Test Time: 23:09:03 Nickel Plant Operator: ANDRÉS MEASUREMENT RESULTS: Intervals: Rate: 87 MD: 180 QRSD: 82 QT: 328 QTc: 394 [place]: P: 53 MD: 180 QRS: 26 T: 27 INTERPRETIVE STATEMENTS: Normal sinus rhythm Nonspecific T wave abnormality Abnormal ECG Compared to ECG 08/24/2022 19:45:33 T-wave abnormality now present Electronically Signed On 08-12-23 16:25:04 TUBING MILL SETTER by Blanco Thompson
== END ==
LOC: ER 22:49
DX: R07.89 Other chest pain (principal); E11.9 Type 2 diabetes mellitus without complications; I10 Essential (primary) hypertension; Z11.52 Encounter for screening for COVID-19
CPT/HCPCS: 93005; 85025; 80048; 36415; 83735; 85610; 80076; 84484; 83690; 83880; 87804 ×2; 71045; 87811; Q0162; J7030

== ENCOUNTER 2023-11-01 15:23 | Emergency (ER) | payer OTHER ==
--- OUTSIDE RECORDS SUMMARY | 2023-11-01 15:28 | XMS REPORT | Continuity of Care Document ---
Author Name Unknown Address [address] [facility] [address] [place] [address] [facility] thconnect Address [address] [facility] [address] [place] [address] Care Team Providers Care Student Name Role Phone Gabriel Shoemaker Logan Primary Care Physician [phone] [email or web address] Attending Clinician UnavailFREDRICK Ramírez Attending Clinician Unavail able Nurse, [facility] Immunization Attending Clinician Unavailable Fredrick Garber DO Attending Clinician EVAN HENSON Attending Clinician Unavailable Sierra Escobar RN Attending Clinician [phone] SHARON LILLY Attending Clinician Unavailable Therapy, [facility] Covid Infusion Attending Clinician Unavailable Evan Henson MD Attending Clinician [phone] Doctor Unassigned, [place] Attending Clinician U Meena Ma Attending Clinician [phone] MEENA BRADFORD Attending Clinician Unavailable [email or web address]_S Admitting Clinician Unavaila SHARON Soriano Admitting Clinician Unavailable Payers Payer Name Policy Type Policy Number Effective Date Expirati on Date Source [facility] - AET[employer] (POS II) [id number] 2022 00:00:00 [employer] PPO GENERIC [id number] 2020 00:00:00 Problems Condition Name Condition Details Condition Category Status Onset Date Resolution Date Last Treatment Date Treating Clinician Comments Source COVID-19 COVID-19 Disease Active 08-02 00:00: 00 [facility] Pain pelvic Pain pelvic Disease Active 10-08 00:00: 00 [facility] BV (bacterial vaginosis) BV (bacterial vaginosis) Disease Active 10-07 00:00: 00 [facility] Screening for STD (sexually transmitte d disease) Screening for STD (sexually transmitte d disease) Disease Active 03-13 00:00: 00 Overview: Formattin g of this note might be different from the original. 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 Director Utility [facility] Other and unspecifie d ovarian cyst Other and unspecifie d ovarian cyst Disease Active 03-13 00:00: 00 [facility] H/O tubal ligation H/O tubal ligation Disease Active 03-13 00:00: 00 [facility] Morbid obesity Morbid obesity Disease Active 03-13 00:00: 00 [facility] Allergies, Adverse Reactions, Alerts Allergy Name Allergy Type Status Severity Reaction(s) Onset Date Inactive Date Treating Clinician Comments Source NO KNOWN ALLERGIE S Drug Class Active [facility] Social History Social Habit Start Date Stop Date Quantity Comments [facility]-2 (event) 2020-07-03 00:00:00 2020-08-02 12:31:00 Yes [facility] History of Social function 2020-07-29 00:00:00 2020-07-29 00:00:00 [facility] Alcohol intake 2020-07-29 00:00:00 2020-07-29 00:00:00 0 /d [facility] Tobacco use and exposure 2015-03-13 00:00:00 2015-03-13 00:00:00 Smokeless tobacco non-user [facility] Sex Assigned At 1980 00:00:00 1980 00:00:00 [facility] Smoking Status Start Date Stop Date Source Never smoked tobacco [facility] Medications Ordered Medication Name Filled Medication Name Start Date Stop Date Current Medication? Ordering Clinician Indication Dosage Frequency Signature (SIG) Comments Components Source carvedilol (COREG) 6.25 mg tablet 08-13 19:37: 33 Yes 6.25mg Take 6.25 mg by mouth 2 (two) times daily with meals. [facility] carvedilol (COREG) 6.25 mg tablet 08-13 13:37: 33 Yes 6.25mg Take 6.25 mg by mouth 2 (two) times daily with meals. [facility] insulin glargine 100 unit/mL injection 08-13 00:00: 00 Yes [id number] 10U inject 10 Units under the skin at bedtime. [facility] metformin ER 500 mg 24 hr tablet 2019-07 00:00: 00 Yes TAKE 1 TO 2 TABLETS BY MOUTH TWICE DAILY WITH MEALS [facility] rosuvastati n 10 mg tablet 2019-07 00:00: 00 Yes 10mg Take 10 mg by mouth daily. [facility] proMETHazin e (PHENERGAN) 25 mg tablet 2015-07 00:00: 00 Yes 25mg Take 1 tablet by mouth every 6 (six) hours as needed for Nausea and Vomiting (N/V). [facility] pentazocine -naloxone (TALWIN NX) 50-0.5 mg tablet 2015-07 00:00: 00 Yes 1{tbl} Take 1 tablet by mouth every 4 (four) hours as needed for Pain for up to 20 doses. [facility] metroNIDAZO LE (FLAGYL) 500 mg tablet 10-07 00:00: 00 Yes [id number] 500mg Take 1 Tab by mouth 2 (two) times daily. [facility] carvedilol (COREG) 6.25 mg tablet 2014-07 01:38: 00 Yes 6.25mg Take 6.25 mg by mouth 2 (two) times daily with meals. [facility] Immunizations Ordered Immunization Name Filled Immunization Name Date Status Comments Source SARS-COV-2 COVID-19 PFIZER VACCINE 2021-07-09 00:00:00 Completed [facility] SARS-COV-2 COVID-19 PFIZER VACCINE 2020-11-16 00:00:00 Completed [facility] SARS-COV-2 COVID-19 PFIZER VACCINE 2020-10-26 00:00:00 Completed [facility] TDAP 2008-10-30 00:00:00 Completed [facility] TDAP 2008-10-30 00:00:00 Completed [facility] TDAP 2008-10-30 00:00:00 Completed [facility] TDAP 2008-10-30 00:00:00 Completed [facility] TDAP 2008-10-30 00:00:00 Completed [facility] TDAP Unknown Completed [facility] Vital Signs Vital Name Observation Time Observation Value Comments S ource Systolic blood pressure 2020-07-30 00:16:00 135 mm[Hg] [facility] Diastolic blood pressure 2020-07-30 00:16:00 84 mm[Hg] [facility] Heart rate 2020-07-30 00:16:00 112 /min [facility] Body temperature 2020-07-30 00:16:00 37.56 Keinsha [facility] Respiratory rate 2020-07-30 00:16:00 17 /min [facility] Body height 2020-07-30 00:16:00 149.9 cm [facility] Body weight 2020-07-30 00:16:00 97.523 kg [facility] BMI 2020-07-30 00:16:00 43.42 kg/m2 [facility] Oxygen saturation in Arterial blood by Pulse oximetry 2020-07-30 00:16:00 96 /min [facility] Systolic blood pressure 2020-07-30 00:16:00 135 mm[Hg] [facility] Diastolic blood pressure 2020-07-30 00:16:00 84 mm[Hg] [facility] Heart rate 2020-07-30 00:16:00 112 /min [facility] Body temperature 2020-07-30 00:16:00 37.56 Kenisha [facility] Respiratory rate 2020-07-30 00:16:00 17 /min [facility] Body height 2020-07-30 00:16:00 149.9 cm [facility] Body weight 2020-07-30 00:16:00 97.523 kg [facility] BMI 2020-07-30 00:16:00 43.42 kg/m2 [facility] Oxygen saturation in Arterial blood by Pulse oximetry 2020-07-30 00:16:00 96 /min [place] [facility] Procedures Procedure Date / Time Performed Performing Clinicia n Source SARS-COV-2 COVID-19 VACCINE,0.3ML,IM (PFIZER) 2021-07-09 17:43:14 Doctor Unassigned, [place] [facility] SCANNED LAB RESULTS 2020-07-30 06:01:00 Doctor Soraya blountsigaye, [place] [facility] Encounters Start Date/Time End Date/Time Encounter Type Admission Type Attending [facility] Care Facility Care Department Encounter ID Source 2023-06-22 00:00:00 2023-06-22 00:00:00 Outpatient [email or web address] diyala_S PRIV PRIV [id number] [facility] 2023-06-17 00:00:00 2023-06-17 00:00:00 Outpatient [email or web address]_Ka diyala_S PRIV PRIV [id number] [facility] 2023-06-17 00:00:00 2023-06-17 00:00:00 Outpatient [email or web address]_Ka diyala_S PRIV PRIV [id number] [facility] 2023-06-17 00:00:00 2023-06-17 00:00:00 Outpatient [email or web address]_Ka diyala_S PRIV PRIV [id number] [facility] 2023-06-02 00:00:00 2023-06-02 00:00:00 Outpatient [email or web address]_Ka diyala_S PRIV PRIV [id number] [facility] 2023-06-01 00:00:00 2023-06-01 00:00:00 Outpatient [email or web address] diyala_S PRIV PRIV [id number] [facility] 2023 00:00:00 2023 00:00:00 Outpatient [email or web address]_Ka diyala_S PRIV PRIV [id number] [facility] 2021-07-09 11:10:00 2021-07-09 11:10:03 Outpatient FREDRICK MCGRAW [facility] [id number] [facility] 2021-07-09 11:10:00 2021-07-09 11:10:03 Imm/Inj Visit Nurse, Zeina Pologan Immunizatio Fredrick Gayle [facility] 1.840.114 [id number] [id number] [id number] [facility] 2020-11-16 08:35:00 2020-11-16 08:35:00 Outpatient [facility] [id number] [facility] 2020-11-16 08:05:00 2020-11-16 08:05:00 Outpatient [facility] [id number] [facility] 2020-10-26 08:10:00 2020-10-26 08:10:00 Outpatient EVAN NIETO [facility] [id number] [facility] 2020-08-14 00:00:00 2020-08-14 00:00:00 Transition of Care Sierra Escobar [place] 1..840.114 350.1.13.10 4.2.7.2.686 [id number] 2020-08-14 00:00:00 2020-08-14 00:00:00 Transition of Care Sierra Escobar [place] 1..840.114 350.1.13.10 4.2.7.2.686 [id number] [facility] 2020-08-02 12:35:00 2020-08-13 13:37:00 Inpatient SHARON LOVE [facility] [id number] [facility] 2020-08-02 12:00:00 2020-08-02 12:00:00 Outpatient EAVN NIETO [facility] [id number] [facility] 2020-08-02 07:34:01 2020-08-02 09:04:01 Nurse Visit Therapy, [facility] Covid Infusion [facility] [id number] 350.1.13.10 4.2.7.2.686 [id number] 2020-08-02 07:34:01 2020-08-02 09:04:01 Nurse Visit Therapy, [facility] Evan Henson [facility] 1.2840.114 350.1.13.10 4.2.7.2.686 [id number] [facility] 2020-07-31 00:00:00 2020-07-31 00:00:00 Patient Secure Msg Doctor Unassigned, [place] [facility] [id number] 350.1.13.10 4.2.7.2.686 [id number] [facility] 2020-07-30 00:00:00 2020-07-30 00:00:00 Orders Only Doctor Unassigned, [place] [facility] 1.2840.114 350.1.13.10 4.2.7.2.686 [id number] 2020-07-30 00:00:00 2020-07-30 00:00:00 Orders Only Doctor Unassigned, [place] [facility] [id number] 350.1.13.10 4.2.7.2.686 [id number] [facility] 2020-07-29 18:12:39 2020-07-29 18:32:39 Urgent Care Suzette [facility] [address] [id number] 350.1.13.10 4.2.7.2.686 [id number] 2020-07-29 18:12:39 2020-07-29 18:32:39 Urgent Care Suzette [facility] [id number] 350.1.13.10 4.2.7.2.686 [id number] [facility] 2020-07-29 18:20:00 2020-07-29 18:20:00 Outpatient R SUZETTE MEENA [facility] [id number] [facility]
[2023-11-01 17:06] LABS: Absolute Basophils 0.1 K/uL (0-0.5); Absolute Eosinophils 0.2 K/uL (0-0.5); Absolute Lymphocytes (CBC) 2.9 K/uL (0.7-4.9); Absolute Monocytes 1.1 K/uL (0.1-1.3); Absolute Neutrophil 8.2 K/uL (1.8-8.0); Basophils % 0.5 % (0-1.3); Eosinophils % 1.3 % (0-4.4); Hematocrit 38.8 % (36.0-45.0); Hemoglobin 13.3 g/dL (12.0-15.0); Lymphocytes % 23.6 % (15.3-44.8); MCH 30.9 pg (27.0-35.0); MCHC 34.4 g/dL (32.0-36.0); MCV 89.8 fL (80-100); MPV 6.9 fL (7.6-11.3); Monocytes % 8.5 % (3.3-12.3); Neutrophils % 66.1 % (41.7-73.7); Platelets 137 thou/uL (152-406); RBC Red Blood Cell Count 4.32 M/uL (3.86-4.86); Red Cell Distribution Width 14.5 % (12.1-15.2)
[2023-11-01] MEDS ORDERED: NA CHLORIDE 0.9% 1,000 ML ONE (17:24)
[2023-11-01] MEDS ORDERED: KETOROLAC 30 MG/ML INJ ONE (17:24)
[2023-11-01] MEDS ORDERED: ONDANSETRON 4 MG/2 ML VIAL ONE (17:24)
[2023-11-01 17:28] LABS: Specific Gravity 1.026 (1.005-1.030); Urine Bilirubin NEGATIVE (Negative); Urine Blood Negative (Negative); Urine Clarity Clear (Clear); Urine Color Colorless (Yellow); Urine Glucose 4+ (Over) (Negative); Urine Ketones NEGATIVE (Negative); Urine Microscopic Reflex YN NO UMIC; Urine Nitrite NEGATIVE (Negative); Urine Protein NEGATIVE (Negative); Urine Urobilinogen Normal (Normal); Urine pH 6.5 (5.0-7.0)
[2023-11-01 17:35] LABS: Albumin 3.7 g/dL (3.4-5.0); Albumin/Globulin Ratio 1.1 (1.1-1.8); Anion Gap 6.8 mEq/L (5.0-15.0); Bilirubin Total 0.3 mg/dL (0.2-1.0); Globulin 3.3 g/dL (2.3-3.5); Potassium 3.8 mEq/L (3.5-5.1)
--- NOTE | 2023-11-01 19:28 | RAD REPORT ---
EXAM DESCRIPTION: CT - Abdomen Pelvis W Contrast - 11/01/2023 6:10 pm CLINICAL HISTORY: ABD PAIN COMPARISON: Abdomen Pelvis W Contrast dated 12/07/2022; Abdomen Pelvis W Contrast dated ; Abdomen Pelvis W Contrast dated 01/19/2021; Abdomen Pelvis W Contrast dated 12/09/2020 TECHNIQUE: Thin cut axial CT imaging of the abdomen and pelvis was performed following intravenous a dministration of 100 mL Isovue 300. Multiplanar reformats were generated and reviewed. All CT scans are performed using dose optimization technique as appropriate and may include automated exposure control or mA/KV adjustment according to patient size. FINDINGS: No suspicious findings in the lung bases. The liver shows mild diffuse parenchymal hypoattenuation suggesting steatosis spleen, adrenal glands and pancreas show no suspicious findings. Gallbladder was surgically removed. Symmetric renal function is seen with no hydronephrosis or suspicious renal mass. Subcentimeter bilat eral small cortical lesions, difficult to characterize given size, but suggestive small cysts. No dilated bowel loops or bowel wall thickening. No free air, free fluid or inflammatory stranding. A ppendix is unremarkable No hernia, mass or bulky lymphadenopathy. Stable left uterine fundal fibroid, stable. The urinary bladder is without significant finding. No suspicious bony findings. IMPRESSION: No acute intra-abdominal process. Incidental findings including diffuse hepatic steatosis and a uterine fibroid.
--- NOTE | 2023-11-01 19:38 | EDPHYS ---
Physician Documentation [facility] Name: Celina Meeks Age: 43 yrs Sex: Female : 1980 Arrival Date: 11/01/2023 Time: 15:23 Bed 7 Private MD: ED Physician oTm Alcaraz HPI: 10/31 15:52 This 43 yrs old Female presents to ER via Ambulatory with complaints of Low ec2 Back Pain, Dizziness, Urinary Frequency. 15:52 Patient arrives today for evaluation of dysuria along with bilateral low back pain, ec2 left worse than right. Patient reports associated subjective chills. Patient reports no vomiting, no diarrhea. Patient reports that she has a history of diabetes, recently was on antibiotics for an upper respiratory infection. Patient reports eating and drinking otherwise okay.. Historical: - Allergies: 15:47 No Known Allergies; nj1 - PMHx: 15:47 diabetes mellitus; Hypercholesterolemia; High Triglycerides; Hypertensive disorder; nj1 - PSHx: 15:47 section; Cholecystectomy; fallopian tubes removed (sx); Tubal sx; nj1 - Immunization history:: Client reports receiving the 2nd dose of the Covid vaccine. - Infectious Disease History:: Denies. - Social history:: Smoking status: Patient denies any tobacco usage or history of. ROS: 15:52 Constitutional: as per hpi ec2 Exam: 15:52 Constitutional: GEN: NAD Head: atraumatic Eyes: EOMI Ears: External ears are ec2 normal. CV: regular rate LUNGS: no respiratory distress ABD: non-distended, soft, nontender, no guarding, nonrigid, CVA TTP to the left flank. SKIN: no evidence of rashes MSK: no evidence of trauma NEURO: moves all extremities equally Vital Signs: 15:46 BP 124 / 74; Pulse 79; Resp 16; Temp 98.8(O); Pulse Ox 100% ; Weight 77.11 kg; Height 4 nj1 ft. 11 in. ; Pain 9/10; 17:20 BP 139 / 76; Pulse 59; Resp 18; Pulse Ox 100% on R/A; ld1 17:50 BP 122 / 72; Pulse 83; Resp 18; Pulse Ox 94% on R/A; ld1 18:54 Pulse 75; Resp 18; Pulse Ox 95% on R/A; ld1 19:41 BP 117 / 67; Pulse 70; Resp 16; Pulse Ox 95% ; jj7 15:46 Body Mass Index 34.34 (77.11 kg, 149.86 cm) nj1 15:46 Pain Scale: Adult nj1 MDM: 15:45 Patient medically screened. ec2 15:52 Data reviewed: vital signs. ED course: Patient arrives today for evaluation of urinary ec2 complaints along with low back pain. Examination remarkable for abdominal findings as above will obtain lab work, urine studies, treat the patient with crystalloid, Zofran as well as Toradol. Evaluate for UTI, electrolyte disturbance, dehydration, anemia. Additional investigations dizziness, she reports some lightheadedness that she experienced along with general fatigue.. 17:37 ED course: CMP reassuring, urine is noninfectious appearing, does have glucosuria ec2 noted. Lipase within normal ranges. Urine testing negative. . 19:36 ED course: CT imaging shows uterine fibroids otherwise no acute process. Will discharge ec2 home. Return precautions given. Instructed her to follow-up gynecology. Suspect is causing her lower abdominal pain. Return precautions given.. 10/31 15:52 Order name: CBC with Diff; Complete Time: 17:16 ec2 10/31 15:52 Order name: CMP; Complete Time: 17:37 ec2 10/31 15:52 Order name: Lipase; Complete Time: 17:37 ec2 10/31 15:52 Order name: Test, Urine; Complete Time: 17:37 ec2 10/31 15:52 Order name: Urinalysis w/ reflexes; Complete Time: 17:37 ec2 10/31 17:38 Order name: CT Abd/Pelvis - IV Contrast Only; Complete Time: 19:34 ec2 10/31 15:52 Order name: IV Saline Lock; Complete Time: 16:54 ec2 10/31 15:52 Order name: Labs collected and sent; Complete Time: 16:54 ec2 Administered Medications: 17:30 Drug: NS 0.9% IV 1000 ml IV at 1 bolus Per protocol; 1000 mL bolus Route: IV; Rate: 1 rs5 bolus; Site: left antecubital; 19:10 Follow up: IV Status: Completed infusion jj7 17:30 Drug: Ondansetron IVP 4 mg IVP once; over 2 minutes Route: IVP; Site: left antecubital; rs5 19:10 Follow up: Response: Marked relief of symptoms jj7 17:31 Drug: TORadol - Ketorolac IVP 15 mg IVP once Route: IVP; Site: left antecubital; rs5 19:10 Follow up: Response: Marked relief of symptoms jj7 Disposition Summary: 11/01/23 19:37 Discharge Ordered Notes: Location: Home ec2 Condition: Stable ec2 Diagnosis - Uterine Fibroids ec2 Followup: ec2 - With: Private Physician - When: - Reason: Re-evaluation by your physician Discharge Instructions: - Discharge Summary Sheet ec2 - Uterine Fibroids, [id number] ec2 Forms: - Medication Reconciliation Form ec2 - Thank You Letter ec2 - Antibiotic Education ec2 - Prescription Opioid Use ec2 - Patient Portal Instructions ec2 - Leadership Thank You Letter ec2 Prescriptions: - methocarbamol 500 mg Oral tablet - take 2 tablets ORAL route 4 times per day; 20 tablet; Refills: 0, Product ec2 Selection Permitted Signatures: Dispatcher [employer] EDCriselda Thakur RN RN ld1 Fredo Cortez RN RN rs5 Coty Lujan RN RN nj1 Tom Alcaraz MD MD ec2 Sangeeta Dickerson RN jj7 Corrections: (The following items were deleted from the chart) 15:52 15:52 CBC+H.LAB.BRZ ordered. EDMS EDMS 15:52 15:52 COMPREHENSIVE METABOLIC PANEL+C.LAB.BRZ ordered. EDMS EDMS 15:52 15:52 LIPASE+C.LAB.BRZ ordered. EDMS EDMS 15:52 15:52 Test, Urine+UC.LAB.BRZ ordered. EDMS EDMS 15:52 15:52 Urinalysis+U.LAB.BRZ ordered. EDMS EDMS 16:21 16:21 Patient medically screened. ec2 ec2 17:39 17:39 Abdomen Pelvis W Con+CT.RAD.BRZ ordered. EDMS EDMS 18:17 18:07 Abdomen Pelvis W Con+CT.RAD.BRZ ordered. EDMS EDMS
--- NOTE | 2023-11-01 19:38 | ER ---
Nurse's Notes [facility] Name: Celina Meeks Age: 43 yrs Sex: Female : 1980 Arrival Date: 11/01/2023 Time: 15:23 Bed 7 Private MD: Diagnosis: Uterine Fibroids Presentation: 10/31 15:46 Coronavirus screen: Vaccine status: Patient reports receiving the 2nd dose of the covid nj1 vaccine. Ebola Screen: Patient denies travel to an Ebola-affected area in the 21 days before illness onset. Initial Sepsis Screen: Does the patient meet any 2 criteria? No. Patient's initial sepsis screen is negative. Does the patient have a suspected source of infection? No. Patient's initial sepsis screen is negative. Risk Assessment: Do you want to hurt yourself or someone else? Patient reports no desire to harm self or others. Onset of symptoms was October 30, 2023. 15:46 Method Of Arrival: Ambulatory [facility] 15:46 Acuity: HAY 3 [facility] 15:48 Chief complaint: Patient states: Low back pain, along with urinary urgency and nj1 dizziness since Wednesday. Triage Assessment: 15:49 General: Appears in no apparent distress. uncomfortable, Behavior is calm, cooperative, nj1 appropriate for age. Pain: Complains of pain in back Pain currently is 9 out of 10 on a pain scale. Neuro: Level of Consciousness is awake, alert, obeys commands, Oriented to person, place, time, situation, Reports dizziness, since wednesday weakness fatigue. Historical: - Allergies: 15:47 No Known Allergies; nj1 - PMHx: 15:47 diabetes mellitus; Hypercholesterolemia; High Triglycerides; Hypertensive disorder; nj1 - PSHx: 15:47 section; Cholecystectomy; fallopian tubes removed (sx); Tubal sx; nj1 - Immunization history:: Client reports receiving the 2nd dose of the Covid vaccine. - Infectious Disease History:: Denies. - Social history:: Smoking status: Patient denies any tobacco usage or history of. Screenin:21 [facility] ED Fall Risk Assessment (Adult) History of falling in the last 3 months, ld1 including since admission No falls in past 3 months (0 pts). Abuse screen: Denies threats or abuse. Denies injuries from another. Nutritional screening: No deficits noted. Tuberculosis screening: No symptoms or risk factors identified. Assessment: 16:45 Reassessment: See triage assessment. ld1 17:20 Reassessment: Patient appears in no apparent distress at this time. No changes from ld1 previously documented assessment. Patient and/or family updated on plan of care and expected duration. Pain level reassessed. Patient is alert, oriented x 3, equal unlabored respirations, skin warm/dry/pink. Patient states symptoms have improved. 18:54 Reassessment: Patient appears in no apparent distress at this time. No changes from ld1 previously documented assessment. Patient and/or family updated on plan of care and expected duration. Pain level reassessed. Patient is alert, oriented x 3, equal unlabored respirations, skin warm/dry/pink. 19:10 Reassessment: ASSUMED CARE OF PT. PT LYING IN BED. NO DISTRESS NOTED. VS STABLE. FAMILY jj7 AT BEDSIDE. NO NEEDS AT THIS TIME. Vital Signs: 15:46 BP 124 / 74; Pulse 79; Resp 16; Temp 98.8(O); Pulse Ox 100% ; Weight 77.11 kg; Height 4 nj1 ft. 11 in. ; Pain 9/10; 17:20 BP 139 / 76; Pulse 59; Resp 18; Pulse Ox 100% on R/A; ld1 17:50 BP 122 / 72; Pulse 83; Resp 18; Pulse Ox 94% on R/A; ld1 18:54 Pulse 75; Resp 18; Pulse Ox 95% on R/A; ld1 19:41 BP 117 / 67; Pulse 70; Resp 16; Pulse Ox 95% ; jj7 15:46 Body Mass Index 34.34 (77.11 kg, 149.86 cm) nj1 15:46 Pain Scale: Adult [facility] ED Course: 15:26 Patient arrived in ED. ec2 15:29 Tom Alcaraz MD is Attending Physician. ec2 15:47 Triage completed. nj1 15:48 Arm band placed on right wrist. nj1 16:54 CBC with Diff Sent. em1 16:54 CMP Sent. em1 16:54 Lipase Sent. em1 16:54 Test, Urine Sent. em1 16:54 Urinalysis w/ reflexes Sent. em1 16:54 Initial lab(s) drawn, by nm, sent to lab. Inserted saline lock: 20 gauge in left em1 antecubital area, using aseptic technique. Blood collected. 17:16 Patient placed in an exam room, on a stretcher. ll1 17:21 Patient has correct armband on for positive identification. Placed in gown. Bed in low ld1 position. Call light in reach. Side rails up X2. manufacturing clerk on. Pulse ox on. NIBP on. Door closed. Noise minimized. Warm blanket given. 17:21 No provider procedures requiring assistance completed. ld1 17:22 IV discontinued, intact, bleeding controlled, No redness/swelling at site. ld1 17:23 Fredo Cortez, RN is Primary Nurse. rs5 18:13 CT Abd/Pelvis - IV Contrast Only In Process Unspecified. EDMS 19:49 IV discontinued, intact, bleeding controlled, No redness/swelling at site. jj7 Administered Medications: 17:30 Drug: NS 0.9% IV 1000 ml IV at 1 bolus Per protocol; 1000 mL bolus Route: IV; Rate: 1 rs5 bolus; Site: left antecubital; 19:10 Follow up: IV Status: Completed infusion jj7 17:30 Drug: Ondansetron IVP 4 mg IVP once; over 2 minutes Route: IVP; Site: left antecubital; rs5 19:10 Follow up: Response: Marked relief of symptoms jj7 17:31 Drug: TORadol - Ketorolac IVP 15 mg IVP once Route: IVP; Site: left antecubital; rs5 19:10 Follow up: Response: Marked relief of symptoms jj7 Medication: 17:22 VIS not applicable for this client. ld1 Outcome: 19:37 Discharge ordered by . ec2 19:49 Discharged to home ambulatory, with significant other, jj7 19:49 Condition: improved 19:49 Discharge instructions given to patient, Instructed on discharge instructions, follow up and referral plans. medication usage, Demonstrated understanding of instructions, follow-up care, medications, Prescriptions given X 1, 19:51 Patient left the ED. jj7 Signatures: Dispatcher [employer] EDMS Omar Renteria em1 Adalgisa Quiñonez RN RN ll1 Criselda Nichole RN RN ld1 Sangeeta Dickerson RN RN jj7 Fredo Cortez, SHERIN DUFF rs5 Coty Lujan RN RN nj1 Tom Alcaraz MD MD ec2 Corrections: (The following items were deleted from the chart) 15:49 15:49 Pain: Complains of pain in back Pain currently is 7 out of 10 on a pain scale. [id number] 17:50 17:21 Condition: stable ld1 ld1 17:50 17:21 Condition: good ld1 ld1 :50 17:21 Discharged to home ambulatory, ld1 ld1 :50 17:21 Discharge instructions given to patient, Instructed on discharge instructions, ld1 follow up and referral plans. Demonstrated understanding of instructions, follow-up care, ld1
[2023-11-02 01:06] VITALS: BP 117/67; TEMP 98.8; O2SAT 95
== END 2023-11-01 19:51 | disposition home or self-care (01) ==
LOC: ER 15:23
DX: D25.9 Leiomyoma of uterus, unspecified (principal); E11.9 Type 2 diabetes mellitus without complications
CPT/HCPCS: 96361; 85025; 36415; 81025; 81003; 83690; 80053; 74177; 96375; 96374; 99285; Q9967; J2405; J7030